=== PATIENT | male | born 1965 | race American Indian/Alaskan Native ===

== ENCOUNTER 2017-07-09 18:31 | Inpatient (IN) | payer SELFPAY ==
[2017-07-09] MEDS ORDERED: NITRO-BID 2% TP ONE (19:48)
[2017-07-09 20:09] LABS: Hematocrit 43.8 % (35.5-45.6); Hemoglobin 14.8 gm/dl (11.8-15.2); Mean Corpuscular HGB Conc 34 % (32-34); Mean Corpuscular Hemoglobin 31 pg (28-32); Mean Corpuscular Volume 91 fl (84-94); Platelet Count 250 K/mm3 (140-440); Red Blood Count 4.84 M/mm3 (3.65-5.03); Red Cell Distribution Width 14.3 % (13.2-15.2)
[2017-07-09 20:20] LABS: INR 0.85 (0.87-1.13); Partial Thromboplastin Time 29.2 Sec. (24.2-36.6)
[2017-07-09 20:55] LABS: Total Cells Counted 100
[2017-07-09 20:56] LABS: Large Platelets Few
[2017-07-09 21:03] LABS: Alanine Aminotransferase 122 units/L (7-56); Albumin 3.8 g/dL (3.9-5); BUN/Creatinine Ratio 10; Blood Urea Nitrogen 6 mg/dL (9-20); Calcium 8.7 mg/dL (8.4-10.2); Hemolysis Index 5
--- NOTE | 2017-07-09 21:26 | Emergency Department Report ---
ED Chest Pain HPI - General Chief Complaint: Chest Pain Stated Complaint: CHEST PAIN Time Seen by Provider: 07/09/17 19:37 Source: patient, EMS Mode of arrival: Stretcher Limitations: No Limitations - History of Present Illness Initial Comments: 52-year-old male the past medical history of hypertension and tobacco use presents to the hospital complaints of chest pain started last night and worsened prior to arrival. Chest pain described as a nail sticking him, positive associated shortness of breath and diaphoresis. No complaints of nausea, vomiting, cough, fever. Pain was rated 10/10 in intensity with an elevated blood pressure until he receives nitroglycerin and aspirin via EMS prior to arrival with improvement in pain. Pain is currently 0/10. Patient has a known history of hypertension but he is not taking any blood pressure medication because he cannot afford them. Patient angrily expresses that he goes back and forth to [facility] for treatment and they don't help him. He states he had a stress test several months ago that was "ok". No previous history of cardiac cath. Patient was referred to a primary care doctor through [facility] but patient did not have the money to be seen during that visit. Denies family previous history of CAD. Severity scale (0 -10): 0 - Related Data Home Medications Medication Instructions Recorded Confirmed Last Taken No Known Home Medications [No 02/28/16 02/28/16 Unknown Reported Home Medications] Allergies Allergy/AdvReac Type Severity Reaction Status Date / Time No Known Allergies Allergy Verified 07/09/17 22:12 Heart Score - HEART Score History: Slightly suspicious EKG: Non-specific Age: 45-65 Risk factors: 1-2 risk factors Troponin: < normal limit HEART Score: 3 ED Review of Systems ROS: Stated complaint: CHEST PAIN Other details as noted in HPI Comment: All other systems reviewed and negative ED Past Medical Hx - Past Medical History Previous Medical History?: Yes Hx Hypertension: Yes - Surgical History Past Surgical History?: No - Social History Smoking Status: Current Every Day Smoker Substance Use Type: Alcohol - Medications Home Medications: Home Medications Medication Instructions Recorded Confirmed Last Taken Type No Known Home Medications [No 02/28/16 02/28/16 Unknown History Reported Home Medications] ED Physical Exam - General Limitations: No Limitations - Other Other exam information: General: No limitations, patient is alert in no acute distress Head exam: Atraumatic, normocephalic Eyes exam: Normal appearance ENT: Moist mucous membrane, normal oropharynx Neck exam: Normal inspection, full range of motion, no meningismus nontender Respiratory exam: Clear to auscultation bilateral, no wheezes, rales, crackles Cardiovascular: Normal rate and rhythm, chest wall nontender Abdomen: Soft, nondistended, and nontender, with normal bowel sounds, no rebound, or guarding Extremity: Full range of motion normal inspection no deformity, tenderness or edema Back: Normal Inspection, full range of motion, no tenderness Neurologic: Alert, oriented x3, cranial nerves intact, no motor or sensory deficit Psychiatric: normal affect, normal mood Skin: Warm, dry, intact ED Course Vital Signs 07/09/17 07/09/17 07/09/17 19:48 20:58 22:05 Temperature 98.6 F Pulse Rate 88 82 87 Respiratory 20 20 Rate Blood Pressure 174/117 Blood Pressure 169/117 144/94 [Right] O2 Sat by Pulse 98 98 Oximetry - Reevaluation(s) Reevaluation #1: 07/09/17 NTG paste placed in ED DARION score - Darion Score Age > 65: (0) No Aspirin use within the Past 7 Days: (0) No 3 or more CAD Risk Factors: (0) No 2 or more Angina events in past 24 hrs: (1) Yes Known CAD with more than 50% Stenosis: (0) No Elevated Cardiac Markers: (0) No ST Deviation Greater than 0.5mm: (0) No DARION Score: 1 ED Medical Decision Making - Lab Data Result diagrams: 07/09/17 19:51 07/09/17 19:51 Lab Results 07/09/17 07/09/17 07/09/17 Range/Units 19:51 19:51 19:51 WBC 4.2 L (4.5-11.0) K/mm3 RBC 4.84 (3.65-5.03) M/mm3 Hgb 14.8 (11.8-15.2) gm/dl Hct 43.8 (35.5-45.6) % MCV 91 (84-94) fl MCH 31 (28-32) pg MCHC 34 (32-34) % RDW 14.3 (13.2-15.2) % Plt Count 250 (140-440) K/mm3 Sargent % (Auto) Distance Education Faculty Liaison Add Manual Diff Complete Total Counted 100 Seg Neuts % (Manual) 33.0 L (40.0-70.0) % Band Neutrophils % 0 % Lymphocytes % (Manual) 37.0 H (13.4-35.0) % Reactive Lymphs % (Man) 2.0 % Monocytes % (Manual) 19.0 H (0.0-7.3) % Eosinophils % (Manual) 4.0 (0.0-4.3) % Basophils % (Manual) 5.0 H (0.0-1.8) % Metamyelocytes % 0 % Myelocytes % 0 % Promyelocytes % 0 % Blast Cells % 0 % Nucleated RBC % Not Reportable Seg Neutrophils # Man 1.4 L (1.8-7.7) K/mm3 Band Neutrophils # 0.0 K/mm3 Lymphocytes # (Manual) 1.6 (1.2-5.4) K/mm3 Abs React Lymphs (Man) 0.1 K/mm3 Monocytes # (Manual) 0.8 (0.0-0.8) K/mm3 Eosinophils # (Manual) 0.2 (0.0-0.4) K/mm3 Basophils # (Manual) 0.2 H (0.0-0.1) K/mm3 Metamyelocytes # 0.0 K/mm3 Myelocytes # 0.0 K/mm3 Promyelocytes # 0.0 K/mm3 Blast Cells # 0.0 K/mm3 WBC Morphology Not Reportable Hypersegmented Neuts Not Reportable Hyposegmented Neuts Not Reportable Hypogranular Neuts Not Reportable Smudge Cells Not Reportable Toxic Granulation Not Reportable Toxic Vacuolation Not Reportable Dohle Bodies Not Reportable Pelger-Huet Anomaly Not Reportable Esther Rods Not Reportable Platelet Estimate Appears normal Clumped Platelets Not Reportable Plt Clumps, EDTA Not Reportable Large Platelets Few Giant Platelets Not Reportable Platelet Satelliting Not Reportable Plt Morphology Comment Not Reportable RBC Morphology Not Reportable Dimorphic RBCs Not Reportable Polychromasia Not Reportable Hypochromasia Not Reportable Poikilocytosis Not Reportable Anisocytosis Not Reportable Microcytosis Not Reportable Macrocytosis Not Reportable Spherocytes Not Reportable Pappenheimer Bodies Not Reportable Sickle Cells Not Reportable Target Cells Not Reportable Tear Drop Cells Not Reportable Ovalocytes Not Reportable Helmet Cells Not Reportable [place] Bodies Not Reportable [place] Rings Not Reportable [place] Cells Not Reportable Bite Cells Not Reportable Crenated Cell Not Reportable Elliptocytes Not Reportable Acanthocytes (Spur) Not Reportable Rouleaux Not Reportable Hemoglobin C Crystals Not Reportable Schistocytes Not Reportable Malaria parasites Not Reportable Bubba Bodies Not Reportable Hem Pathologist Commnt No PT 12.0 L (12.2-14.9) Sec. INR 0.85 L (0.87-1.13) APTT 29.2 (24.2-36.6) Sec. Sodium 137 (137-145) mmol/L Potassium 4.2 (3.6-5.0) mmol/L Chloride 98.2 (98-107) mmol/L Carbon Dioxide 22 (22-30) mmol/L Anion Gap 21 mmol/L BUN 6 L (9-20) mg/dL Creatinine 0.6 L (0.8-1.5) mg/dL Estimated GFR > 60 ml/min BUN/Creatinine Ratio 10 % Glucose 80 (75-100) mg/dL Calcium 8.7 (8.4-10.2) mg/dL Total Bilirubin 0.40 (0.1-1.2) mg/dL AST 167 H (5-40) units/L ALT 122 H (7-56) units/L Alkaline Phosphatase 78 (35-129) units/L Total Creatine Kinase 193 H (55-170) units/L CK-MB (CK-2) 3.0 (0.0-4.0) ng/mL CK-MB (CK-2) Rel Index (0-4) Troponin T < 0.010 (0.00-0.029) ng/mL Total Protein 7.4 (6.3-8.2) g/dL Albumin 3.8 L (3.9-5) g/dL Albumin/Globulin Ratio 1.1 % // Range/Units 22:17 WBC (4.5-11.0) K/mm3 RBC (3.65-5.03) M/mm3 Hgb (11.8-15.2) gm/dl Hct (35.5-45.6) % MCV (84-94) fl MCH (28-32) pg MCHC (32-34) % RDW (13.2-15.2) % Plt Count (140-440) K/mm3 Sargent % (Auto) Add Manual Diff Total Counted Seg Neuts % (Manual) (40.0-70.0) % Band Neutrophils % % Lymphocytes % (Manual) (13.4-35.0) % Reactive Lymphs % (Man) % Monocytes % (Manual) (0.0-7.3) % Eosinophils % (Manual) (0.0-4.3) % Basophils % (Manual) (0.0-1.8) % Metamyelocytes % % Myelocytes % % Promyelocytes % % Blast Cells % % Nucleated RBC % Seg Neutrophils # Man (1.8-7.7) K/mm3 Band Neutrophils # K/mm3 Lymphocytes # (Manual) (1.2-5.4) K/mm3 Abs React Lymphs (Man) K/mm3 Monocytes # (Manual) (0.0-0.8) K/mm3 Eosinophils # (Manual) (0.0-0.4) K/mm3 Basophils # (Manual) (0.0-0.1) K/mm3 Metamyelocytes # K/mm3 Myelocytes # K/mm3 Promyelocytes # K/mm3 Blast Cells # K/mm3 WBC Morphology Hypersegmented Neuts Hyposegmented Neuts Hypogranular Neuts Smudge Cells Toxic Granulation Toxic Vacuolation Dohle Bodies Pelger-Huet Anomaly Esther Rods Platelet Estimate Clumped Platelets Plt Clumps, EDTA Large Platelets Giant Platelets Platelet Satelliting Plt Morphology Comment RBC Morphology Dimorphic RBCs Polychromasia Hypochromasia Poikilocytosis Anisocytosis Microcytosis Macrocytosis Spherocytes Pappenheimer Bodies Sickle Cells Target Cells Tear Drop Cells Ovalocytes Helmet Cells [place] Bodies [place] Rings [place] Cells Bite Cells Crenated Cell Elliptocytes Acanthocytes (Spur) Rouleaux Hemoglobin C Crystals Schistocytes Malaria parasites Bubba Bodies Hem Pathologist Commnt PT (12.2-14.9) Sec. INR (0.87-1.13) APTT (24.2-36.6) Sec. Sodium (137-145) mmol/L Potassium (3.6-5.0) mmol/L Chloride (98-107) mmol/L Carbon Dioxide (22-30) mmol/L Anion Gap mmol/L BUN (9-20) mg/dL Creatinine (0.8-1.5) mg/dL Estimated GFR ml/min BUN/Creatinine Ratio % Glucose (75-100) mg/dL Calcium (8.4-10.2) mg/dL Total Bilirubin (0.1-1.2) mg/dL AST (5-40) units/L ALT (7-56) units/L Alkaline Phosphatase (35-129) units/L Total Creatine Kinase 183 H (55-170) units/L CK-MB (CK-2) 2.7 (0.0-4.0) ng/mL CK-MB (CK-2) Rel Index 1.4 (0-4) Troponin T < 0.010 (0.00-0.029) ng/mL Total Protein (6.3-8.2) g/dL Albumin (3.9-5) g/dL Albumin/Globulin Ratio % - EKG Data -: EKG Interpreted by Me (old anterior infarct) EKG shows normal: sinus rhythm, axis (qrs axis -55), QRS complexes (qrs d 112), ST-T waves (no stemi/t inv. LVH, LAFV) Rate: normal (80) - EKG Data When compared to previous EKG there are: previous EKG unavailable 07/09/17 23:20 repeat ed ekg done at 23:00 with no acute changes compared to previous - Radiology Data Radiology results: report reviewed read by radiologist cxr: naf - Medical Decision Making The patient's pain improved nitroglycerin prior to arrival. Patient has uncontrolled hypertension and is a smoker. Noncompliant with medications. Will be admitted for further treatment. Treated with Nitro paste in the ED. initial troponin negative and EKG without signs of ST elevation CO or acute changes. UDS pending - Differential Diagnosis unstable angina, CO, hypertensive emergency, atypical chest pain, PT Critical Care Time: No Critical care attestation.: If time is entered above; I have spent that time in minutes in the direct care of this critically ill patient, excluding procedure time. ED Disposition Clinical Impression: Chest pain, Uncontrolled hypertension, Noncompliance with medication regimen Disposition: OP ADMIT IP TO THIS HOSP Is pt being admited?: Yes Does the pt Need Aspirin: No (given prior to arrival) Condition: Stable Time of Disposition: 21:26 (Dr Bernardo/hosp)
[2017-07-09] MEDS ORDERED: TYLENOL PO PRN (22:05)
[2017-07-09] MEDS ORDERED: PERCOCET 5/325 PO PRN (22:05)
[2017-07-09] MEDS ORDERED: PROVENTIL IH PRN (22:05)
[2017-07-09] MEDS ORDERED: ZOFRAN IV PRN (22:05)
[2017-07-09] MEDS ORDERED: SODIUM CHLORIDE FLUSH SYRINGE 10 ML IV PRN (22:05)
--- NOTE | 2017-07-09 22:08 | History and Physical Report ---
History of Present Illness Date of examination: 07/09/17 History of present illness: 52-year-old man a history of hypertension, noncompliant with medication comes emergency room complaints of chest pain located in the epigastric area which he describes as a sticking pain, intermittent in nature, unable to say how long it lasts 4, intensity 5/10, no radiation. He stated that he started having palpitations initially followed by chest pain, also feeling lightheaded. Admits to nausea, no shortness of breath, diaphoresis Review Of Systems: Constitutional: no weight loss Ears, eyes, nose, mouth and throat: no nasal congestion, no nasal discharge, no sinus pressure, blurry vision, diplopia Neck: No neck pain or rigidity. Cardiovascular: no orthopnea Respiratory: No shortness of breath, cough Gastrointestinal: no abdominal pain, hematochezia Genitourinary : no hematuria Musculoskeletal: no muscle ache Integumentary: no rash, no pruritis Neurological: no parathesias, focal weakness Endocrine: no cold or heat intolerance, no polyuria or polydipsia Hematologic/Lymphatic: no easy bruising, no easy bleeding, no gland swelling Allergic/Immunologic: no urticaria, no angioedema. PAST MEDICAL HISTORY; hypertension PAST SURGICAL HISTORY:elbow SOCIAL HISTORY:smoke 1 pack/day, 2 beers /day, no drugs FAMILY HISTORY: hypertension Medications and Allergies Allergies Allergy/AdvReac Type Severity Reaction Status Date / Time No Known Allergies Allergy Verified 07/09/17 22:12 Home Medications Medication Instructions Recorded Confirmed Last Taken Type No Known Home Medications [No 02/28/16 07/10/17 Unknown History Reported Home Medications] Active Meds: Active Medications Acetaminophen (Tylenol) 650 mg PO Q4H PRN PRN Reason: Pain MILD(1-3)/Fever >100.5/LUCERO Albuterol (Proventil) 2.5 mg IH Q4HRT PRN PRN Reason: Shortness Of Breath Exam - Physical Exam Narrative exam: Gen. appearance: Patient lying in bed, no apparent distress HEENT: Normocephalic, atraumatic, pupils equally round and reactive to light, extraocular movement intact, and no sclericterus,. No JVD or thyromegaly or nodule,neck supple, no carotid bruit ,mucous membranes moist, no exudate or erythema Heart: S1, S2, regular rate and rhythm Lungs: clear , breathing comfortable Abdomen: Positive bowel sounds, nontender, nondistended, no organomegaly Extremity: No edema, cyanosis, clubbing Skin: No rash, nodules, warm, dry Neuro: Oriented 3, cranial nerves II-12 intact, speech is fluent, motor and sensory intact - Constitutional Vitals: Temp Pulse Resp BP Pulse Ox 98.6 F 82 20 174/117 98 07/09/17 19:48 07/09/17 20:58 07/09/17 19:48 07/09/17 20:58 07/09/17 19:48 Results - Labs CBC & Chem 7: 07/10/17 04:13 07/09/17 19:51 Labs: Abnormal lab results 07/09/17 07/09/17 07/09/17 Range/Units 19:51 19:51 19:51 WBC 4.2 L (4.5-11.0) K/mm3 Seg Neuts % (Manual) 33.0 L (40.0-70.0) % Lymphocytes % (Manual) 37.0 H (13.4-35.0) % Monocytes % (Manual) 19.0 H (0.0-7.3) % Basophils % (Manual) 5.0 H (0.0-1.8) % Seg Neutrophils # Man 1.4 L (1.8-7.7) K/mm3 Basophils # (Manual) 0.2 H (0.0-0.1) K/mm3 PT 12.0 L (12.2-14.9) Sec. INR 0.85 L (0.87-1.13) BUN 6 L (9-20) mg/dL Creatinine 0.6 L (0.8-1.5) mg/dL AST 167 H (5-40) units/L ALT 122 H (7-56) units/L Total Creatine Kinase 193 H (55-170) units/L Albumin 3.8 L (3.9-5) g/dL Assessment and Plan Assessment Hypertensive urgency Palpitation/ chest pain Alcohol abuse Plan Admit to medicine Start iv hydralazine, norvasc check cardiac enzymes, stress test CIWA protocol with iv ativan
--- NOTE | 2017-07-09 22:50 | XRay Report ---
FINAL REPORT PROCEDURE: Chest. TECHNIQUE: Portable AP view. HISTORY: Chest pain. COMPARISON: No prior studies are available for comparison. FINDINGS: The heart size is normal. There is moderate tortuosity of the thoracic aorta. The lungs are clear. There are no pleural effusions. The soft tissues and regional skeleton are unremarkable. IMPRESSION: No evidence of acute disease.
[2017-07-09 23:04] LABS: Creatine Kinase MB 2.7 ng/mL (0.0-4.0)
[2017-07-10] MEDS: APRESOLINE IV PRN ×2 (00:20→00:58)
[2017-07-10] MEDS: NORVASC PO SCH ×2 (00:58→10:57)
[2017-07-10 01:04] LABS: Amphetamine Screen,Urine PRESUMPTIVE NEGATIVE; Benzodiazepines Screen,Urine PRESUMPTIVE NEGATIVE; Cannabinoid Screen,Urine PRESUMPTIVE NEGATIVE; Cocaine Screen,Urine PRESUMPTIVE NEGATIVE; Methadone Screen,Urine PRESUMPTIVE NEGATIVE; Opiate Screen,Urine PRESUMPTIVE NEGATIVE
[2017-07-10] MEDS ORDERED: ATIVAN IV PRN ×2 (01:07)
[2017-07-10] MEDS ORDERED: NITRO-BID 2% TP ONE ×2 (01:43→01:48)
[2017-07-10] MEDS ORDERED: APRESOLINE IV ONE (01:43)
[2017-07-10] MEDS ORDERED: APRESOLINE ONE (01:47)
[2017-07-10 04:56] LABS: Hematocrit 44.6 % (35.5-45.6); Hemoglobin 15.5 gm/dl (11.8-15.2); Mean Corpuscular HGB Conc 35 % (32-34); Mean Corpuscular Hemoglobin 31 pg (28-32); Mean Corpuscular Volume 89 fl (84-94); Platelet Count 248 K/mm3 (140-440); Red Blood Count 4.99 M/mm3 (3.65-5.03); Red Cell Distribution Width 14.2 % (13.2-15.2)
[2017-07-10 05:05] LABS: Creatine Kinase MB 3.1 ng/mL (0.0-4.0)
[2017-07-10 05:16] LABS: BUN/Creatinine Ratio 10; Blood Urea Nitrogen 7 mg/dL (9-20)
[2017-07-10 05:19] LABS: Hemolysis Index 4
[2017-07-10 06:04] LABS: Basophils % (Manual) 0 % (0.0-1.8); Eosinophils % (Manual) 0 % (0.0-4.3); Total Cells Counted 100
[2017-07-10 06:05] LABS: Anisocytosis Few; Hypochromasia Few; Large Platelets Few
--- NOTE | 2017-07-10 08:24 | Progress Note ---
Assessment and Plan Hypertensive urgency Palpitation Chest pain Alcohol abuse Plan Abnormal Stress thallium Start iv hydralazine, norvasc check cardiac enzymes, stress test CIWA protocol with iv Ativan DVT PPx with Subjective Date of service: 07/10/17 Principal diagnosis: chest pain, Hypertensive emergency Interval history: No new complaint. chest pain improving. reviewed lab and radiological data Objective - Constitutional Vitals: Vital Signs - 12hr 07/09/17 07/09/17 07/09/17 20:58 22:05 23:28 Temperature Pulse Rate 82 87 88 Respiratory 20 20 Rate Blood Pressure 174/117 Blood Pressure 152/101 [Left] Blood Pressure 144/94 [Right] O2 Sat by Pulse 98 2 L Oximetry 07/10/17 07/10/17 07/10/17 00:17 00:20 00:58 Temperature Pulse Rate 82 82 83 Respiratory 20 Rate Blood Pressure 179/131 179/133 Blood Pressure 179/103 [Left] Blood Pressure [Right] O2 Sat by Pulse 98 Oximetry 07/10/17 07/10/17 07/10/17 01:22 01:31 01:58 Temperature Pulse Rate 84 84 84 Respiratory 20 18 Rate Blood Pressure 190/112 Blood Pressure 179/113 195/117 [Left] Blood Pressure [Right] O2 Sat by Pulse 98 98 Oximetry 07/10/17 07/10/17 07/10/17 01:59 02:10 03:50 Temperature 98.4 F Pulse Rate 84 98 H 108 H Respiratory 20 20 Rate Blood Pressure 190/112 Blood Pressure 171/101 168/104 [Left] Blood Pressure [Right] O2 Sat by Pulse 98 Oximetry General appearance: Present: no acute distress, well-nourished - EENT Eyes: PERRL, EOM intact - Neck Neck: supple, normal ROM - Respiratory Respiratory effort: normal Respiratory: bilateral: CTA - Cardiovascular Rhythm: regular Heart Sounds: Present: S1 & S2. Absent: gallop, rub Extremities: pulses intact, No edema, normal color, Full ROM - Gastrointestinal General gastrointestinal: Present: soft, non-tender, non-distended, normal bowel sounds - Integumentary Integumentary: clear, warm, dry - Musculoskeletal Musculoskeletal: 1, strength equal bilaterally - Neurologic Neurologic: moves all extremities - Psychiatric Psychiatric: memory intact, appropriate mood/affect, intact judgment & insight - Labs CBC & Chem 7: 07/10/17 04:13 07/10/17 04:13 Labs: Abnormal lab results 07/09/17 07/09/17 07/09/17 Range/Units 19:51 19:51 19:51 WBC 4.2 L (4.5-11.0) K/mm3 Hgb (11.8-15.2) gm/dl MCHC (32-34) % Seg Neuts % (Manual) 33.0 L (40.0-70.0) % Lymphocytes % (Manual) 37.0 H (13.4-35.0) % Monocytes % (Manual) 19.0 H (0.0-7.3) % Basophils % (Manual) 5.0 H (0.0-1.8) % Seg Neutrophils # Man 1.4 L (1.8-7.7) K/mm3 Lymphocytes # (Manual) (1.2-5.4) K/mm3 Monocytes # (Manual) (0.0-0.8) K/mm3 Basophils # (Manual) 0.2 H (0.0-0.1) K/mm3 PT 12.0 L (12.2-14.9) Sec. INR 0.85 L (0.87-1.13) Chloride (98-107) mmol/L Carbon Dioxide (22-30) mmol/L BUN 6 L (9-20) mg/dL Creatinine 0.6 L (0.8-1.5) mg/dL AST 167 H (5-40) units/L ALT 122 H (7-56) units/L Total Creatine Kinase 193 H (55-170) units/L Albumin 3.8 L (3.9-5) g/dL 07/09/17 07/10/17 07/10/17 Range/Units 22:17 04:13 04:13 WBC (4.5-11.0) K/mm3 Hgb 15.5 H (11.8-15.2) gm/dl MCHC 35 H (32-34) % Seg Neuts % (Manual) 71.0 H (40.0-70.0) % Lymphocytes % (Manual) 10.0 L (13.4-35.0) % Monocytes % (Manual) 19.0 H (0.0-7.3) % Basophils % (Manual) (0.0-1.8) % Seg Neutrophils # Man (1.8-7.7) K/mm3 Lymphocytes # (Manual) 0.6 L (1.2-5.4) K/mm3 Monocytes # (Manual) 1.1 H (0.0-0.8) K/mm3 Basophils # (Manual) (0.0-0.1) K/mm3 PT (12.2-14.9) Sec. INR (0.87-1.13) Chloride 96.8 L (98-107) mmol/L Carbon Dioxide 19 L (22-30) mmol/L BUN 7 L (9-20) mg/dL Creatinine 0.7 L (0.8-1.5) mg/dL AST (5-40) units/L ALT (7-56) units/L Total Creatine Kinase 183 H 196 H (55-170) units/L Albumin (3.9-5) g/dL
[2017-07-10] MEDS ORDERED: LEXISCAN IV ONE ×2 (08:25→08:28)
[2017-07-10] MEDS ORDERED: LOVENOX SUB-Q SCH (10:00)
[2017-07-10] MEDS: LOVENOX SUB-Q SCH (10:58)
[2017-07-10] MEDS: SODIUM CHLORIDE FLUSH SYRINGE 10 ML IV SCH ×2 (11:02→22:39)
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
[2017-07-10] MEDS: COREG PO SCH ×2 (13:12→22:38)
[2017-07-10] MEDS: ZESTRIL PO SCH ×2 (13:13→22:38)
--- NOTE | 2017-07-10 19:31 | Treadmill Report ---
Resting images revealed homogeneous radioisotope activity throughout the myocardium. On post-Lexiscan, images revealed a slightly diminished radioisotope uptake in the inferior wall region. There is no evidence of transient ischemic dilatation. On gated scan, ejection fraction was noted to be 58%. There is no segmental motion abnormality noted. IMPRESSION: 1. This test is positive for inferior wall ischemia of mild degree. 2. Left ventricular systolic function is normal with ejection fraction 58%. JOB# [id number] KEVAN/NTS
[2017-07-11 06:07] LABS: Hematocrit 45.3 % (35.5-45.6); Hemoglobin 15.4 gm/dl (11.8-15.2); Mean Corpuscular HGB Conc 34 % (32-34); Mean Corpuscular Hemoglobin 31 pg (28-32); Mean Corpuscular Volume 91 fl (84-94); Platelet Count 256 K/mm3 (140-440); Red Blood Count 5.01 M/mm3 (3.65-5.03); Red Cell Distribution Width 14.4 % (13.2-15.2)
[2017-07-11 06:36] LABS: Alanine Aminotransferase 97 units/L (7-56); Albumin 3.6 g/dL (3.9-5); BUN/Creatinine Ratio 19; Blood Urea Nitrogen 17 mg/dL (9-20); Calcium 9.4 mg/dL (8.4-10.2); Chol/HDL Ratio 1.91 %; HDL Cholesterol 94 mg/dL (40-59); Hemolysis Index 8; LDL Cholesterol,Direct 83 mg/dL (50-130)
[2017-07-11 07:29] LABS: Total Cells Counted 100
[2017-07-11 07:30] LABS: Anisocytosis Few; Basophils % (Manual) 0 % (0.0-1.8); Giant Platelets Rare; Large Platelets Few
[2017-07-11 07:31] LABS: Platelet Estimate Cons
--- NOTE | 2017-07-11 11:46 | Progress Note ---
Assessment and Plan Assessment: Chest pain, atypical - currently resolved; ECG with no acute ischemic changes; Sandra negative for AMI Uncontrolled HTN - improving Abnormal stress test - pt declines [facility] at this time and wishes to continue with medical management Elevated LFTs ETOH use / tobacco use - cessation encouraged H/o medication noncompliance - due to financial issues per pt report Plan: BPs improved today. Echo reviewed - EF 50-55%, impaired relaxation. Currently stable cardiac status. Pt may discharge home from cardiology standpoint. Recommend follow up in our office with Brianda Ochoa NP, within 1-2 weeks of hospital discharge ([phone]). The patient has been seen in conjunction with Dr. Jeter who agrees with the assessment and plan of care. Subjective Date of service: 07/11/17 Principal diagnosis: chest pain, Hypertensive emergency Interval history: pt resting in bed, no current cardiac complaints. BPs improved. Objective Last Vital Signs Temp 98.2 F 07/11/17 08:36 Pulse 64 07/11/17 08:36 Resp 20 07/11/17 08:36 BP 127/95 07/11/17 08:36 Pulse Ox 95 07/11/17 08:36 - Physical Examination HEENT: Positive: PERRL, Normocephaly, Mucus Membranes Moist Neck: Positive: neck supple, trachea midline Cardiac: Positive: Reg Rate and Rhythm, S1/S2 Lungs: Positive: clear to auscultation Neuro: Positive: Grossly Intact, Cranial Nerve 2-12 Intact Abdomen: Positive: Soft. Negative: Tender Skin: Positive: Clear. Negative: Rash, Wound Musculoskeletal: No Fluid Collection, No Pain, Normal Range of Motion Extremities: Absent: edema - Labs and Meds Cardiac Enzymes 07/11/17 Range/Units 04:56 AST 120 H (5-40) units/L Lipids 07/11/17 Range/Units 04:56 Triglycerides 101 (2-149) mg/dL Cholesterol 180 (50-199) mg/dL HDL Cholesterol 94 H (40-59) mg/dL Cholesterol/HDL Ratio 1.91 % CBC 07/11/17 Range/Units 04:56 WBC 5.2 (4.5-11.0) K/mm3 RBC 5.01 (3.65-5.03) M/mm3 Hgb 15.4 H (11.8-15.2) gm/dl Hct 45.3 (35.5-45.6) % Plt Count 256 (140-440) K/mm3 Comprehensive Metabolic Panel 07/11/17 Range/Units 04:56 Sodium 137 (137-145) mmol/L Potassium 4.1 (3.6-5.0) mmol/L Chloride 98.6 (98-107) mmol/L Carbon Dioxide 22 (22-30) mmol/L BUN 17 (9-20) mg/dL Creatinine 0.9 (0.8-1.5) mg/dL Glucose 105 H (75-100) mg/dL Calcium 9.4 (8.4-10.2) mg/dL AST 120 H (5-40) units/L ALT 97 H (7-56) units/L Alkaline Phosphatase 77 (35-129) units/L Total Protein 6.6 (6.3-8.2) g/dL Albumin 3.6 L (3.9-5) g/dL - Imaging and Cardiology EKG: report reviewed, image reviewed - EKG Sinus rhythms and dysrhythmias: sinus rhythm Chamber hypertrophy or enlargement: left ventricular hypertro
[2017-07-11] MEDS: ZESTRIL PO SCH ×2 (13:16→21:58)
[2017-07-11] MEDS: LOVENOX SUB-Q SCH (13:17)
[2017-07-11] MEDS: COREG PO SCH ×2 (13:17→21:58)
[2017-07-11] MEDS: SODIUM CHLORIDE FLUSH SYRINGE 10 ML IV SCH (21:57)
[2017-07-12 06:30] LABS: Hematocrit 44.5 % (35.5-45.6); Mean Corpuscular HGB Conc 34 % (32-34); Mean Corpuscular Hemoglobin 31 pg (28-32); Mean Corpuscular Volume 91 fl (84-94); Platelet Count 240 K/mm3 (140-440); Red Blood Count 4.89 M/mm3 (3.65-5.03); Red Cell Distribution Width 14.4 % (13.2-15.2)
[2017-07-12 06:50] LABS: Alanine Aminotransferase 97 units/L (7-56); Albumin 3.2 g/dL (3.9-5); BUN/Creatinine Ratio 21; Blood Urea Nitrogen 15 mg/dL (9-20); Hemolysis Index 4
[2017-07-12 07:28] LABS: Ovalocytes Few; Total Cells Counted 100
[2017-07-12 08:32] VITALS: BP 139/92
--- NOTE | 2017-07-12 09:29 | Progress Note ---
Assessment and Plan Hypertensive urgency Palpitation Chest pain Alcohol abuse Plan Abnormal Stress thallium Start iv hydralazine, norvasc. Pt declined [facility] check cardiac enzymes, stress test CIWA protocol with iv Ativan DVT PPx with Subjective Date of service: 07/11/17 Principal diagnosis: chest pain, Hypertensive emergency Interval history: feeling better Objective - Constitutional Vitals: Vital Signs - 12hr 07/11/17 07/11/17 07/11/17 22:00 23:49 23:57 Temperature Pulse Rate 58 L 98 H Respiratory Rate Blood Pressure 144/95 82/53 Blood Pressure [Left] O2 Sat by Pulse 98 97 100 Oximetry 07/12/17 07/12/17 07/12/17 00:31 04:17 05:03 Temperature 98.3 F 97.3 F L Pulse Rate 52 L 55 L 58 L Respiratory 20 20 Rate Blood Pressure 137/91 Blood Pressure 144/95 137/91 [Left] O2 Sat by Pulse 98 97 95 Oximetry 07/12/17 07:37 Temperature 97.3 F L Pulse Rate 58 L Respiratory 16 Rate Blood Pressure 139/92 Blood Pressure [Left] O2 Sat by Pulse 98 Oximetry General appearance: Present: no acute distress, well-nourished - EENT Eyes: PERRL, EOM intact - Neck Neck: supple, normal ROM - Respiratory Respiratory effort: normal Respiratory: bilateral: CTA - Breasts Breasts: normal - Cardiovascular Rhythm: regular Heart Sounds: Present: S1 & S2. Absent: gallop, rub Extremities: pulses intact, No edema, normal color, Full ROM - Gastrointestinal General gastrointestinal: Present: soft, non-tender, non-distended, normal bowel sounds - Integumentary Integumentary: clear, warm, dry - Musculoskeletal Musculoskeletal: 1, strength equal bilaterally - Neurologic Neurologic: moves all extremities - Psychiatric Psychiatric: memory intact, appropriate mood/affect, intact judgment & insight - Labs CBC & Chem 7: 07/12/17 04:04 07/12/17 04:04 Labs: Abnormal lab results 07/12/17 07/12/17 Range/Units 04:04 04:04 Monocytes % (Manual) 15.0 H (0.0-7.3) % Sodium 134 L (137-145) mmol/L Creatinine 0.7 L (0.8-1.5) mg/dL AST 121 H (5-40) units/L ALT 97 H (7-56) units/L Albumin 3.2 L (3.9-5) g/dL
[2017-07-12] MEDS: LOVENOX SUB-Q SCH (09:32)
[2017-07-12] MEDS: NORVASC PO SCH (09:32)
[2017-07-12] MEDS: ZESTRIL PO SCH (09:33)
--- NOTE | 2017-07-12 09:36 | Discharge Summary ---
Providers - Providers Date of Admission: 07/09/17 22:05 Date of discharge: 07/12/17 Attending physician: PONCE DILLON cardiology Primary care physician: ZACH CADENA Hospitalization Reason for admission: chest pain Condition: Stable Pertinent studies: CXR, ECHO with nl EF 50-55% and abnormal myocardial perfusion test. However, Pt decline cardiac cath Procedures: none Hospital course: The pt is a 52-year-old male with a past medical history significant for hypertension, noncompliant with medication, ETOH use, tobacco use. He is previously unknown to our practice. He presented with c/o chest pain and high BP for the past several months. He states that he was hospitalized at [place] 2 months ago with the same complaints and "no one did anything about it". He describes his chest pain as a nonexertional, nonradiating, intermittent left- sided chest pressure which is associated with SOB, palpitations and lightheadedness. The pain sometimes lasts for 1.5 days at a time. The pt reports that he is currently homeless - he lives in a friend's van - and could no longer afford his BP medications. He took his BP at [facility] yesterday and noted his SBP to be in 200s and thus decided to seek medical attention. Pt underwent lexiscan MPI stress test this 07/10/17 result was abnormal but pt decline cardiac cath. ECHO was 07/10/17 showd EF of 50-55% with diastolic dysfunction. Chest pain had resolve with asa NTG and morphin. He is therefore being discharged to f/u with [facility]p in 3-5 and cardiology in 7 days. Alcohl adn tobacco cessation counselling were done Disposition: - TO HOME OR SELFCARE Time spent for discharge: 33 mins Core Measure Documentation - Palliative Care Palliative Care/ Comfort Measures: Not Applicable - Core Measures Any of the following diagnoses?: none Exam - Constitutional Vitals: Temp Pulse Resp BP Pulse Ox 97.3 F L 58 L 16 139/92 98 07/12/17 07:37 07/12/17 07:37 07/12/17 07:37 07/12/17 07:37 07/12/17 07:37 General appearance: Present: no acute distress, well-nourished - EENT Eyes: Present: PERRL ENT: hearing intact, clear oral mucosa - Neck Neck: Present: supple, normal ROM - Respiratory Respiratory effort: normal Respiratory: bilateral: CTA - Cardiovascular Heart Sounds: Present: S1 & S2. Absent: rub, click - Extremities Extremities: pulses symmetrical, No edema Peripheral Pulses: within normal limits - Abdominal General gastrointestinal: Present: soft, non-tender, non-distended, normal bowel sounds Male genitourinary: Present: normal - Integumentary Integumentary: Present: clear, warm, dry - Musculoskeletal Musculoskeletal: gait normal, strength equal bilaterally - Psychiatric Psychiatric: appropriate mood/affect, intact judgment & insight - Neurologic Neurologic: CNII-XII intact, moves all extremities Plan Activity: advance as tolerated, fall precautions Weight Bearing Status: Weight Bear as Tolerated Special Instructions: smoking cessation Prescriptions: amLODIPine [Norvasc] 10 mg PO QDAY #30 tablet Aspirin [Aspirin BABY CHEW TAB] 81 mg PO QDAY #30 tab.chew Carvedilol [Coreg] 12.5 mg PO BID #60 tablet Lisinopril [Zestril TAB] 20 mg PO QDAY #30 tablet
[2017-07-12] MEDS ORDERED: BABY ASPIRIN PO SCH (10:00)
== END 2017-07-12 10:45 | disposition home or self-care (01) | DRG 313 ==
LOC: ED 18:31 → 4A 22:05
PROVIDERS: ADMIT Internal Medicine; ATTEND Family Medicine
DX: R07.9 Chest pain, unspecified (principal); I10 Essential (primary) hypertension; F17.200 Nicotine dependence, unspecified, uncomplicated; I16.0 Hypertensive urgency; F10.10 Alcohol abuse, uncomplicated; Z71.6 Tobacco abuse counseling; Z71.41 Alcohol abuse counseling and surveillance of alcoholic; Z91.14 Patient's other noncompliance with medication regimen; Z82.49 Family history of ischemic heart disease and other diseases of the circulatory system
CPT/HCPCS: 36415; 71045; 78452; 80048; 80053; 80061; 80307; 82550; 82553; 83735; 84484; 85007; 85025; 85610; 85730; 93005; 93010; 93017; 93306; 96374; 96376; A9502; J0360; J1650; J2785

== ENCOUNTER 2017-09-05 16:11 | Inpatient (IN) | payer SELFPAY ==
[2017-09-05] MEDS ORDERED: ASPIRIN PO ONE (16:18)
[2017-09-05 17:05] LABS: Hematocrit 44.5 % (35.5-45.6); Hemoglobin 15.2 gm/dl (11.8-15.2); Mean Corpuscular HGB Conc 34 % (32-34); Mean Corpuscular Hemoglobin 31 pg (28-32); Mean Corpuscular Volume 91 fl (84-94); Platelet Count 274 K/mm3 (140-440); Red Blood Count 4.92 M/mm3 (3.65-5.03); Red Cell Distribution Width 13.9 % (13.2-15.2)
[2017-09-05 17:23] LABS: BUN/Creatinine Ratio 10; Blood Urea Nitrogen 8 mg/dL (9-20); Calcium 8.7 mg/dL (8.4-10.2); Hemolysis Index 4
[2017-09-05 17:37] LABS: Total Cells Counted 100
[2017-09-05 17:38] LABS: Large Platelets 1+; Platelet Estimate Consistent w Auto; RBC Morphology Normal
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
[2017-09-05 21:27] LABS: INR 0.87 (0.87-1.13)
[2017-09-05 21:28] LABS: Partial Thromboplastin Time 28.8 Sec. (24.2-36.6)
[2017-09-05 21:35] LABS: Albumin 3.9 g/dL (3.9-5); Bilirubin,Direct 0.2 mg/dL (0-0.2)
[2017-09-06 01:08] LABS: Bilirubin,Urine NEG (Negative); Blood,Urine NEG (Negative); Color,Urine Yellow (Yellow); Mucus,Urine FEW /HPF; Protein,Urine <15 mg/dL mg/dL (Negative); WBC,Urine < 1.0 /HPF (0.0-6.0)
[2017-09-06 01:11] LABS: Amphetamine Screen,Urine PRESUMPTIVE NEGATIVE; Benzodiazepines Screen,Urine PRESUMPTIVE NEGATIVE; Cannabinoid Screen,Urine PRESUMPTIVE NEGATIVE; Cocaine Screen,Urine PRESUMPTIVE NEGATIVE; Methadone Screen,Urine PRESUMPTIVE NEGATIVE; Opiate Screen,Urine PRESUMPTIVE NEGATIVE
[2017-09-06] MEDS ORDERED: TYLENOL PO PRN (02:30)
[2017-09-06] MEDS ORDERED: MORPHINE IV PRN (02:30)
[2017-09-06] MEDS ORDERED: ZOFRAN IV PRN (02:30)
[2017-09-06] MEDS ORDERED: SODIUM CHLORIDE FLUSH SYRINGE 10 ML IV PRN (02:30)
--- NOTE | 2017-09-06 02:32 | History and Physical Report ---
History of Present Illness Date of examination: 09/06/17 History of present illness: 52-year-old man a history of hypertension, coronary artery disease comes emergency room complaints of chest pain located in the left substernal area which he describes as a knife like pain,constant, intensity 5/10, no radiation. Admits to nausea, no vomiting, shortness breath, diaphoresis or palpitation. The patient was admitted here a few weeks ago, stress test was abnormal, he refused cardiac cath Review Of Systems: Constitutional: no weight loss Ears, eyes, nose, mouth and throat: no nasal congestion, no nasal discharge, no sinus pressure, blurry vision, diplopia Neck: No neck pain or rigidity. Cardiovascular: no orthopnea Respiratory: No shortness of breath, cough Gastrointestinal: no abdominal pain, hematochezia Genitourinary : no hematuria Musculoskeletal: no muscle ache Integumentary: no rash, no pruritis Neurological: no parathesias, focal weakness Endocrine: no cold or heat intolerance, no polyuria or polydipsia Hematologic/Lymphatic: no easy bruising, no easy bleeding, no gland swelling Allergic/Immunologic: no urticaria, no angioedema. PAST MEDICAL HISTORY; hypertension PAST SURGICAL HISTORY:elbow SOCIAL HISTORY:smoke 4 cigars/day, 4 beers /day, no drugs FAMILY HISTORY: hypertension Medications and Allergies Allergies Allergy/AdvReac Type Severity Reaction Status Date / Time No Known Allergies Allergy Verified 07/09/17 22:12 Home Medications Medication Instructions Recorded Confirmed Last Taken Type ALBUTEROL NEB's [Proventil 0.083% 2.5 mg IH Q4HRT PRN nebu 07/12/17 09/07/17 Unknown Rx NEBS] Acetaminophen [Acetaminophen TAB] 650 mg PO Q4H PRN tablet 07/12/17 09/07/17 Unknown Rx Aspirin [Aspirin BABY CHEW TAB] 81 mg PO QDAY #30 tab.chew 09/07/17 Unknown Rx AtorvaSTATin [Lipitor] 40 mg PO QHS #30 tablet 09/07/17 Unknown Rx Carvedilol [Coreg] 12.5 mg PO BID #60 tablet 09/07/17 Unknown Rx ISOSORBIDE MONOnitrate [Imdur ER] 30 mg PO QDAY #30 tablet 09/07/17 Unknown Rx Lisinopril [Zestril TAB] 20 mg PO QDAY #30 tablet 09/07/17 Unknown Rx amLODIPine [Norvasc] 10 mg PO QDAY #30 tablet 09/07/17 Unknown Rx Exam - Physical Exam Narrative exam: Gen. appearance: Patient lying in bed, no apparent distress HEENT: Normocephalic, atraumatic, pupils equally round and reactive to light, extraocular movement intact, and no sclericterus,. No JVD or thyromegaly or nodule,neck supple, no carotid bruit ,mucous membranes moist, no exudate or erythema Heart: S1, S2, regular rate and rhythm Lungs: Clear to auscultation bilaterally, breathing comfortable Abdomen: Positive bowel sounds, nontender, nondistended, no organomegaly Extremity: No edema, cyanosis, clubbing Skin: No rash, nodules, warm, dry Neuro: Oriented 3, cranial nerves II-12 intact, speech is fluent, motor and sensory intact - Constitutional Vitals: Temp Pulse Resp BP Pulse Ox 98.4 F 90 18 143/94 96 09/05/17 20:26 09/06/17 01:00 09/06/17 01:00 09/06/17 00:55 09/06/17 01:00 Results - Labs CBC & Chem 7: 09/07/17 05:29 09/07/17 05:29 Labs: Abnormal lab results 09/05/17 09/05/17 09/05/17 Range/Units 16:24 16:24 20:55 Lymphocytes % (Manual) 38.0 H (13.4-35.0) % Monocytes % (Manual) 17.0 H (0.0-7.3) % Monocytes # (Manual) 1.0 H (0.0-0.8) K/mm3 D-Dimer 252.57 H (0-234) ng/mlDDU Sodium 134 L (137-145) mmol/L Chloride 95.1 L (98-107) mmol/L BUN 8 L (9-20) mg/dL AST (5-40) units/L ALT (7-56) units/L Plasma/Serum Alcohol (0-0.07) % 09/05/17 09/05/17 Range/Units 20:55 20:55 Lymphocytes % (Manual) (13.4-35.0) % Monocytes % (Manual) (0.0-7.3) % Monocytes # (Manual) (0.0-0.8) K/mm3 D-Dimer (0-234) ng/mlDDU Sodium (137-145) mmol/L Chloride (98-107) mmol/L BUN (9-20) mg/dL AST 143 H (5-40) units/L ALT 122 H (7-56) units/L Plasma/Serum Alcohol 0.12 H (0-0.07) % Assessment and Plan Assessment Unstable angina Coronary artery disease Hypertension Alcohol abuse Plan Admit to medicine check cardiac enzymes, consult cardiology Continue appropriate outpatient medications IV morphine, DVT prophylaxis
[2017-09-06] MEDS: COREG PO SCH ×2 (08:30→21:36)
[2017-09-06] MEDS: BABY ASPIRIN PO SCH (08:31)
[2017-09-06] MEDS: NORVASC PO SCH (08:31)
[2017-09-06] MEDS ORDERED: SODIUM CHLORIDE FLUSH SYRINGE 10 ML IV SCH (10:00)
[2017-09-06] MEDS ORDERED: ZESTRIL PO SCH (10:00)
[2017-09-06] MEDS ORDERED: LOVENOX SUB-Q SCH (10:00)
[2017-09-06] MEDS ORDERED: APRESOLINE IV PRN (10:08)
--- NOTE | 2017-09-06 10:29 | Event Note ---
Date: 09/06/17 Dr Nallely Jeter of [facility] performed a consultation and cardiac testing on this patient just last month 07/10/17. Please refer further cardiac management to his service. Thank you.
[2017-09-06] MEDS ORDERED: ATIVAN PO PRN (10:38)
[2017-09-06] MEDS ORDERED: ATIVAN IV PRN ×2 (10:38)
[2017-09-06] MEDS: LOVENOX SUB-Q SCH (11:04)
--- NOTE | 2017-09-06 13:55 | Consultation ---
History of Present Illness Consult date: 09/06/17 Requesting physician: BRIGITTE MARES Consult reason: chest pain History of present illness: The pt is a 52-year-old male with a past medical history significant for hypertension, noncompliant with medication, ETOH use, tobacco use. He has been seen by our practice on prior hospitalization but has been noncompliant with OP follow up. He presented with c/o chest pain and high BP for the past several days. He describes his chest pain as a nonexertional, nonradiating, intermittent left-sided chest pressure which is associated with SOB. The pt reports that he is currently homeless and could no longer afford his medications. Of note, pt underwent lexiscan MPI stress test in 07/2017 which showed small mild inferior reversible perfusion defect and coronary angiography was recommended at that time for definitive diagnosis. However, pt stated that if PCI were required, he did not believe that he would be able to afford DAPT and thus pt declined LHC at this time chose to proceed with medical management. On evaluation, pt reports that he still wishes to proceed with medical management only and declines LHC at this time. Echo done 07/2017 showed EF 50-55% , impaired relaxation. Past History Past Medical History: hyperlipidemia Social history: smoking, alcohol abuse Medications and Allergies Allergies Allergy/AdvReac Type Severity Reaction Status Date / Time No Known Allergies Allergy Verified 07/09/17 22:12 Home Medications Medication Instructions Recorded Confirmed Last Taken Type ALBUTEROL NEB's [Proventil 0.083% 2.5 mg IH Q4HRT PRN nebu 07/12/17 Unknown Rx NEBS] Acetaminophen [Acetaminophen TAB] 650 mg PO Q4H PRN tablet 07/12/17 Unknown Rx Aspirin [Aspirin BABY CHEW TAB] 81 mg PO QDAY #30 tab.chew 07/12/17 Unknown Rx Carvedilol [Coreg] 12.5 mg PO BID #60 tablet 07/12/17 Unknown Rx Lisinopril [Zestril TAB] 20 mg PO QDAY #30 tablet 07/12/17 Unknown Rx amLODIPine [Norvasc] 10 mg PO QDAY #30 tablet 07/12/17 Unknown Rx Active Meds: Active Medications Acetaminophen (Tylenol) 650 mg PO Q4H PRN PRN Reason: Pain MILD(1-3)/Fever >100.5/LUCERO Amlodipine Besylate (Norvasc) 10 mg PO QDAY [facility] Last Admin: 09/06/17 08:31 Dose: 10 mg Aspirin (Baby Aspirin) 81 mg PO QDAY [facility] Last Admin: 09/06/17 08:31 Dose: 81 mg Carvedilol (Coreg) 12.5 mg PO BID [facility] Last Admin: 09/06/17 08:30 Dose: 12.5 mg Enoxaparin Sodium (Lovenox) 40 mg SUB-Q QDAY@1000 [facility] Last Admin: 09/06/17 11:04 Dose: 40 mg Hydralazine HCl (Apresoline) 5 mg IV Q4HR PRN PRN Reason: Hypertension Lisinopril (Zestril) 20 mg PO QDAY [facility] Last Admin: 09/06/17 08:31 Dose: 20 mg Lorazepam (Ativan) 2 mg IV Q1H PRN PRN Reason: CIWA-Ar 8-15 Lorazepam (Ativan) 4 mg PO Q1H PRN PRN Reason: CIWA-Ar 16-25 Morphine Sulfate (Morphine) 2 mg IV Q4H PRN PRN Reason: Pain, Moderate (4-6) Ondansetron HCl (Zofran) 4 mg IV Q8H PRN PRN Reason: Nausea And Vomiting Sodium Chloride (Sodium Chloride Flush Syringe 10 Ml) 10 ml IV BID [facility] Sodium Chloride (Sodium Chloride Flush Syringe 10 Ml) 10 ml IV PRN PRN PRN Reason: LINE FLUSH Review of Systems Constitutional: no weight loss, no weight gain, no fever, no chills, no sweats Ears, nose, mouth and throat: no ear pain, no nose pain, no sinus pressure, no sinus pain Cardiovascular: chest pain, shortness of breath, high blood pressure, no orthopnea, no palpitations, no rapid/irregular heart beat, no edema, no syncope , no lightheadedness Respiratory: shortness of breath, no cough, no congestion, no wheezing, no pain on inspiration Gastrointestinal: no abdominal pain, no nausea, no vomiting, no diarrhea, no constipation, no change in bowel habits Genitourinary Male: no dysuria, no hematuria, no flank pain, no discharge, no urinary frequency, no urinary hesitancy Musculoskeletal: no neck stiffness, no neck pain Integumentary: no rash, no pruritis, no redness, no sores, no wounds Neurological: no head injury, no paralysis, no weakness, no parathesias, no numbness, no tingling, no seizures, no syncope Psychiatric: no anxiety Endocrine: no cold intolerance, no heat intolerance Hematologic/Lymphatic: no easy bruising, no easy bleeding, no lymphadenopathy Allergic/Immunologic: no urticaria, no wheezing, no persistent infections Physical Examination Vital Signs Temp Pulse Resp BP Pulse Ox 98.0 F 102 H 18 148/117 97 09/05/17 16:14 09/05/17 16:14 09/05/17 16:14 09/05/17 16:14 09/05/17 16:14 General appearance: no acute distress HEENT: Positive: PERRL, Normocephaly, Mucus Membranes Moist Neck: Positive: neck supple, trachea midline Cardiac: Positive: Reg Rate and Rhythm, S1/S2 Lungs: Positive: clear to auscultation Neuro: Positive: Grossly Intact, Cranial Nerve 2-12 Intact Abdomen: Positive: Soft. Negative: Tender Skin: Positive: Clear. Negative: Rash, Wound Musculoskeletal: No Pain Extremities: Absent: edema Results 09/05/17 16:24 09/05/17 16:24 Cardiac Enzymes 09/05/17 Range/Units 20:55 AST 143 H (5-40) units/L Coagulation 09/05/17 Range/Units 20:55 PT 12.2 (12.2-14.9) Sec. INR 0.87 (0.87-1.13) APTT 28.8 (24.2-36.6) Sec. CBC 09/05/17 Range/Units 16:24 WBC 6.1 (4.5-11.0) K/mm3 RBC 4.92 (3.65-5.03) M/mm3 Hgb 15.2 (11.8-15.2) gm/dl Hct 44.5 (35.5-45.6) % Plt Count 274 (140-440) K/mm3 Comprehensive Metabolic Panel 09/05/17 09/05/17 Range/Units 16:24 20:55 Sodium 134 L (137-145) mmol/L Potassium 3.7 (3.6-5.0) mmol/L Chloride 95.1 L (98-107) mmol/L Carbon Dioxide 25 (22-30) mmol/L BUN 8 L (9-20) mg/dL Creatinine 0.8 (0.8-1.5) mg/dL Glucose 84 (75-100) mg/dL Calcium 8.7 (8.4-10.2) mg/dL Direct Bilirubin 0.2 (0-0.2) mg/dL Indirect Bilirubin 0.5 mg/dL AST 143 H (5-40) units/L ALT 122 H (7-56) units/L Alkaline Phosphatase 59 (35-129) units/L Total Protein 6.8 (6.3-8.2) g/dL Albumin 3.9 (3.9-5) g/dL - Imaging and Cardiology Echo: report reviewed (07/2017 showed EF 50-55%, impaired relaxation. ) EKG: report reviewed, image reviewed EKG interpretations - Telemetry EKG Rhythm: Sinus Rhythm - EKG Sinus rhythms and dysrhythmias: sinus rhythm Chamber hypertrophy or enlargement: left ventricular hypertro Repolarization changes or abnormalities: repolarization abn secondary to ventricular hypertrophy Assessment and Plan Assessment: Chest pain, atypical - ECG with no acute ischemic changes; Sandra negative for AMI Uncontrolled HTN Abnormal stress test - pt declines LHC at this time and wishes to continue with medical management Elevated LFTs ETOH use / tobacco use - cessation encouraged H/o medication noncompliance - due to financial issues per pt report Elevated DDimer - await chest CTA Plan: Optimize anti-hypertensive and anti-ischemic regimen. No plans for repeat ischemic evaluation or echo at this time per pt's wishes. Assessment and plan reviewed with pt at bedside. The patient has been seen in conjunction with Dr. KEREN Mahajan who agrees with the assessment and plan of care.
--- NOTE | 2017-09-06 15:18 | Progress Note ---
Assessment and Plan Assessment and plan: 52-year-old -[place] male with past medical history significant for hypertension, positive stress test, tobacco dependence presented to the emergency department with complaints of chest pain. Cardiac enzymes are negative, ECG no acute ischemia. Patient said he is willing to do cardiac cath if needed. I saw cardiology note and they said he refused to have cardiac cath And patient preferred medical management and currently on it Active tobacco and alcohol abuse; patient was counselled about cessation of alcohol DVT prophylaxis - On lovenox. Disposition - Possible DC tomorrow. History Interval history: Patient was seen and evaluated this morning, patient is still complaining chest pain. Hospitalist Physical - Physical exam Narrative exam: Not in cardiopulmonary distress. The patient appeared well nourished and normally developed. Vital signs as documented. Head exam is unremarkable. No scleral icterus . Neck is without jugular venous distension, thyromegaly, or carotid bruits. Lungs are clear to auscultation. Cardiac exam reveals regular rate and Rhythm. Abdominal exam reveals normal bowel sounds, no masses, no organomegaly and no aortic enlargement. Extremities are nonedematous and both femoral and pedal pulses are normal. ELECTRONIC FUNDS TRANSFER COORDINATOR: Alert and oriented 3. No focal weakness. - Constitutional Vitals: Temp Pulse Resp BP Pulse Ox 98.8 F 84 18 152/104 99 09/06/17 04:27 09/06/17 08:30 09/06/17 04:34 09/06/17 08:31 09/06/17 04:27 General appearance: Present: no acute distress Results - Labs CBC & Chem 7: 09/05/17 16:24 09/05/17 16:24 Labs: Laboratory Last Values WBC 6.1 K/mm3 (4.5-11.0) 09/05/17 16:24 RBC 4.92 M/mm3 (3.65-5.03) 09/05/17 16:24 Hgb 15.2 gm/dl (11.8-15.2) 09/05/17 16:24 Hct 44.5 % (35.5-45.6) 09/05/17 16:24 MCV 91 fl (84-94) 09/05/17 16:24 MCH 31 pg (28-32) 09/05/17 16:24 MCHC 34 % (32-34) 09/05/17 16:24 RDW 13.9 % (13.2-15.2) 09/05/17 16:24 Plt Count 274 K/mm3 (140-440) 09/05/17 16:24 Johnson % (Auto) Sticker On 09/05/17 16:24 Add Manual Diff Complete 09/05/17 16:24 Total Counted 100 09/05/17 16:24 Seg Neuts % (Manual) 42.0 % (40.0-70.0) 09/05/17 16:24 Band Neutrophils % 0 % 09/05/17 16:24 Lymphocytes % (Manual) 38.0 % (13.4-35.0) H 09/05/17 16:24 Reactive Lymphs % (Man) 0 % 09/05/17 16:24 Monocytes % (Manual) 17.0 % (0.0-7.3) H 09/05/17 16:24 Eosinophils % (Manual) 2.0 % (0.0-4.3) 09/05/17 16:24 Basophils % (Manual) 1.0 % (0.0-1.8) 09/05/17 16:24 Metamyelocytes % 0 % 09/05/17 16:24 Myelocytes % 0 % 09/05/17 16:24 Promyelocytes % 0 % 09/05/17 16:24 Blast Cells % 0 % 09/05/17 16:24 Nucleated RBC % Not Reportable 09/05/17 16:24 Seg Neutrophils # Man 2.6 K/mm3 (1.8-7.7) 09/05/17 16:24 Band Neutrophils # 0.0 K/mm3 09/05/17 16:24 Lymphocytes # (Manual) 2.3 K/mm3 (1.2-5.4) 09/05/17 16:24 Abs React Lymphs (Man) 0.0 K/mm3 09/05/17 16:24 Monocytes # (Manual) 1.0 K/mm3 (0.0-0.8) H 09/05/17 16:24 Eosinophils # (Manual) 0.1 K/mm3 (0.0-0.4) 09/05/17 16:24 Basophils # (Manual) 0.1 K/mm3 (0.0-0.1) 09/05/17 16:24 Metamyelocytes # 0.0 K/mm3 09/05/17 16:24 Myelocytes # 0.0 K/mm3 09/05/17 16:24 Promyelocytes # 0.0 K/mm3 09/05/17 16:24 Blast Cells # 0.0 K/mm3 09/05/17 16:24 WBC Morphology Not Reportable 09/05/17 16:24 Hypersegmented Neuts Not Reportable 09/05/17 16:24 Hyposegmented Neuts Not Reportable 09/05/17 16:24 Hypogranular Neuts Not Reportable 09/05/17 16:24 Smudge Cells Not Reportable 09/05/17 16:24 Toxic Granulation Not Reportable 09/05/17 16:24 Toxic Vacuolation Not Reportable 09/05/17 16:24 Dohle Bodies Not Reportable 09/05/17 16:24 Pelger-Huet Anomaly Not Reportable 09/05/17 16:24 Esther Rods Not Reportable 09/05/17 16:24 Platelet Estimate Consistent w auto 09/05/17 16:24 Clumped Platelets Not Reportable 09/05/17 16:24 Plt Clumps, EDTA Not Reportable 09/05/17 16:24 Large Platelets 1+ 09/05/17 16:24 Giant Platelets Not Reportable 09/05/17 16:24 Platelet Satelliting Not Reportable 09/05/17 16:24 Plt Morphology Comment Not Reportable 09/05/17 16:24 RBC Morphology Normal 09/05/17 16:24 Dimorphic RBCs Not Reportable 09/05/17 16:24 Polychromasia Not Reportable 09/05/17 16:24 Hypochromasia Not Reportable 09/05/17 16:24 Poikilocytosis Not Reportable 09/05/17 16:24 Anisocytosis Not Reportable 09/05/17 16:24 Microcytosis Not Reportable 09/05/17 16:24 Macrocytosis Not Reportable 09/05/17 16:24 Spherocytes Not Reportable 09/05/17 16:24 Pappenheimer Bodies Not Reportable 09/05/17 16:24 Sickle Cells Not Reportable 09/05/17 16:24 Target Cells Not Reportable 09/05/17 16:24 Tear Drop Cells Not Reportable 09/05/17 16:24 Ovalocytes Not Reportable 09/05/17 16:24 Helmet Cells Not Reportable 09/05/17 16:24 Wilson-Marston Bodies Not Reportable 09/05/17 16:24 [place] Rings Not Reportable 09/05/17 16:24 Davon Cells Not Reportable 09/05/17 16:24 Bite Cells Not Reportable 09/05/17 16:24 Crenated Cell Not Reportable 09/05/17 16:24 Elliptocytes Not Reportable 09/05/17 16:24 Acanthocytes (Spur) Not Reportable 09/05/17 16:24 Rouleaux Not Reportable 09/05/17 16:24 Hemoglobin C Crystals Not Reportable 09/05/17 16:24 Schistocytes Not Reportable 09/05/17 16:24 Malaria parasites Not Reportable 09/05/17 16:24 Bubba Bodies Not Reportable 09/05/17 16:24 Hem Pathologist Commnt No 09/05/17 16:24 PT 12.2 Sec. (12.2-14.9) 09/05/17 20:55 INR 0.87 (0.87-1.13) 09/05/17 20:55 APTT 28.8 Sec. (24.2-36.6) 09/05/17 20:55 D-Dimer 252.57 ng/mlDDU (0-234) H 09/05/17 20:55 Sodium 134 mmol/L (137-145) L 09/05/17 16:24 Potassium 3.7 mmol/L (3.6-5.0) 09/05/17 16:24 Chloride 95.1 mmol/L (98-107) L 09/05/17 16:24 Carbon Dioxide 25 mmol/L (22-30) 09/05/17 16:24 Anion Gap 18 mmol/L 09/05/17 16:24 BUN 8 mg/dL (9-20) L 09/05/17 16:24 Creatinine 0.8 mg/dL (0.8-1.5) 09/05/17 16:24 Estimated GFR > 60 ml/min 09/05/17 16:24 BUN/Creatinine Ratio 10 % 09/05/17 16:24 Glucose 84 mg/dL (75-100) 09/05/17 16:24 Calcium 8.7 mg/dL (8.4-10.2) 09/05/17 16:24 Total Bilirubin 0.70 mg/dL (0.1-1.2) 09/05/17 20:55 Direct Bilirubin 0.2 mg/dL (0-0.2) 09/05/17 20:55 Indirect Bilirubin 0.5 mg/dL 09/05/17 20:55 AST 143 units/L (5-40) H 09/05/17 20:55 ALT 122 units/L (7-56) H 09/05/17 20:55 Alkaline Phosphatase 59 units/L (35-129) 09/05/17 20:55 Troponin T 0.013 ng/mL (0.00-0.029) 09/05/17 21:57 NT-Pro-B Natriuret Pep 288.1 pg/mL (0-900) 09/05/17 20:57 Total Protein 6.8 g/dL (6.3-8.2) 09/05/17 20:55 Albumin 3.9 g/dL (3.9-5) 09/05/17 20:55 Albumin/Globulin Ratio 1.3 % 09/05/17 20:55 Urine Color Yellow (Yellow) 09/06/17 00:12 Urine Turbidity Clear (Clear) 09/06/17 00:12 Urine pH 5.0 (5.0-7.0) 09/06/17 00:12 Ur Specific [place] 1.014 (1.003-1.030) 09/06/17 00:12 Urine Protein <15 mg/dl mg/dL (Negative) 09/06/17 00:12 Urine Glucose (UA) Neg mg/dL (Negative) 09/06/17 00:12 Urine Ketones Tr mg/dL (Negative) 09/06/17 00:12 Urine Blood Neg (Negative) 09/06/17 00:12 Urine Nitrite Neg (Negative) 09/06/17 00:12 Urine Bilirubin Neg (Negative) 09/06/17 00:12 Urine Urobilinogen 4.0 mg/dL (<2.0) 09/06/17 00:12 Ur Leukocyte Esterase Neg (Negative) 09/06/17 00:12 Urine WBC (Auto) < 1.0 /HPF (0.0-6.0) 09/06/17 00:12 Urine RBC (Auto) 2.0 /HPF (0.0-6.0) 09/06/17 00:12 U Epithel Cells (Auto) < 1.0 /HPF (0-13.0) 09/06/17 00:12 Urine Mucus Few /HPF 09/06/17 00:12 Urine Opiates Screen Presumptive negative 09/06/17 00:12 Urine Methadone Screen Presumptive negative 09/06/17 00:12 Ur Barbiturates Screen Presumptive negative 09/06/17 00:12 Ur Phencyclidine Scrn Presumptive negative 09/06/17 00:12 Ur Amphetamines Screen Presumptive negative 09/06/17 00:12 U Benzodiazepines Scrn Presumptive negative 09/06/17 00:12 Urine Cocaine Screen Presumptive negative 09/06/17 00:12 U Marijuana (THC) Screen Presumptive negative 09/06/17 00:12 Drugs of Abuse Note Disclamer 09/06/17 00:12 Plasma/Serum Alcohol 0.12 % (0-0.07) H 09/05/17 20:55
[2017-09-06] MEDS: ZESTRIL PO SCH (21:35)
[2017-09-07 05:27] VITALS: BP 120/90
[2017-09-07 06:29] LABS: Hematocrit 43.4 % (35.5-45.6); Hemoglobin 15.1 gm/dl (11.8-15.2); Mean Corpuscular HGB Conc 35 % (32-34); Mean Corpuscular Hemoglobin 32 pg (28-32); Mean Corpuscular Volume 91 fl (84-94); Platelet Count 238 K/mm3 (140-440); Red Blood Count 4.77 M/mm3 (3.65-5.03); Red Cell Distribution Width 14.1 % (13.2-15.2)
[2017-09-07 06:43] LABS: BUN/Creatinine Ratio 14; Blood Urea Nitrogen 11 mg/dL (9-20); Calcium 9.2 mg/dL (8.4-10.2); Hemolysis Index 4
[2017-09-07 07:49] LABS: Total Cells Counted 100
[2017-09-07 07:50] LABS: Basophils % (Manual) 0 % (0.0-1.8)
[2017-09-07 07:52] LABS: Large Platelets Few; Platelet Estimate Consistent w Auto
[2017-09-07] MEDS ORDERED: IMDUR PO SCH (10:00)
[2017-09-07] MEDS: NORVASC PO SCH (10:54)
[2017-09-07] MEDS: BABY ASPIRIN PO SCH (10:55)
[2017-09-07] MEDS: ZESTRIL PO SCH (10:55)
[2017-09-07] MEDS: COREG PO SCH (10:55)
[2017-09-07] MEDS: LOVENOX SUB-Q SCH (10:56)
--- NOTE | 2017-09-07 12:46 | Discharge Summary ---
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 Cardiac enzymes are negative, ECG no acute ischemia. Patient said he is willing to do cardiac cath if needed. cardiology was consulted and here is their recommendation: Assessment and Plan Assessment: Chest pain, atypical - currently resolved; ECG with no acute ischemic changes; Sandra negative for AMI Uncontrolled HTN - improved H/o abnormal stress test Elevated LFTs ETOH use / tobacco use - cessation encouraged H/o medication noncompliance - due to financial issues per pt report Elevated DDimer - await chest CTA Plan: Pt reiterates that if coronary angiography with PCI is required, he knows he will not be compliant with DAPT given financial issues. Thus, he wishes to forgo LHC at this time and try to be compliant with anti-ischemic and anti- hypertensive regimen. No plans for repeat ischemic evaluation or echo at this time per pt's wishes. Currently stable cardiac status. Pt may discharge home from cardiology standpoint. Recommend pt follow up in our office with Brianda Ochoa NP, within 2 weeks of hospital discharge ([phone]). Assessment and plan reviewed with pt at bedside. The patient has been seen in conjunction with Dr. KEREN Mahajan who agrees with the assessment and plan of care. Active tobacco and alcohol abuse; patient was counselled about cessation of alcohol. Chest pain subsided, patient is hemodynamically stable with a temperature discharge, appropriate medication scripts were given at the time of discharge. Disposition: TO HOME OR SELFCARE Time spent for discharge: 32 minutes - Discharge Diagnoses (1) Chest pain Status: Acute Qualifiers: Chest pain type: unspecified Qualified Code(s): R07.9 - Chest pain, unspecified (2) Noncompliance with medication regimen Status: Acute (3) Uncontrolled hypertension Status: Acute (4) Abnormal stress test Status: Acute Core Measure Documentation - Palliative Care Palliative Care/ Comfort Measures: Not Applicable - Core Measures Any of the following diagnoses?: none Exam - Physical Exam Narrative exam: Not in cardiopulmonary distress. The patient appeared well nourished and normally developed. Vital signs as documented. Head exam is unremarkable. No scleral icterus . Neck is without jugular venous distension, thyromegaly, or carotid bruits. Lungs are clear to auscultation. Cardiac exam reveals regular rate and Rhythm. Abdominal exam reveals normal bowel sounds, no masses, no organomegaly and no aortic enlargement. Extremities are nonedematous and both femoral and pedal pulses are normal. CORRECTIONAL CAPTAIN: Alert and oriented 3. No focal weakness. - Constitutional Vitals: Temp Pulse Resp BP Pulse Ox 98.4 F 65 18 120/90 98 09/07/17 03:50 09/07/17 06:42 09/07/17 03:50 09/07/17 03:50 09/07/17 03:50 Plan Activity: no restrictions Weight Bearing Status: Full Weight Bearing Diet: low cholesterol, low salt Additional Instructions: please follow up at [facility] in 1-2 weeks Follow up with: ZACH CADENA MD [Staff Physician] - 7 Days PRIMARY CARE, [Primary Care Provider] - 3-5 Days Prescriptions: AtorvaSTATin [Lipitor] 40 mg PO QHS #30 tablet amLODIPine [Norvasc] 10 mg PO QDAY #30 tablet Aspirin [Aspirin BABY CHEW TAB] 81 mg PO QDAY #30 tab.chew Carvedilol [Coreg] 12.5 mg PO BID #60 tablet ISOSORBIDE MONOnitrate [Imdur ER] 30 mg PO QDAY #30 tablet Lisinopril [Zestril TAB] 20 mg PO QDAY #30 tablet
--- NOTE | 2017-09-07 13:33 | Progress Note ---
Assessment and Plan Assessment: Chest pain, atypical - currently resolved; ECG with no acute ischemic changes; Sandra negative for AMI Uncontrolled HTN - improved H/o abnormal stress test Elevated LFTs ETOH use / tobacco use - cessation encouraged H/o medication noncompliance - due to financial issues per pt report Elevated DDimer - await chest CTA Plan: Pt reiterates that if coronary angiography with PCI is required, he knows he will not be compliant with DAPT given financial issues. Thus, he wishes to forgo LHC at this time and try to be compliant with anti-ischemic and anti- hypertensive regimen. No plans for repeat ischemic evaluation or echo at this time per pt's wishes. Currently stable cardiac status. Pt may discharge home from cardiology standpoint. Recommend pt follow up in our office with Brianda Ochoa NP, within 2 weeks of hospital discharge ([phone]). Assessment and plan reviewed with pt at bedside. The patient has been seen in conjunction with Dr. KEREN Mahajan who agrees with the assessment and plan of care. Subjective Date of service: 09/07/17 Principal diagnosis: chest pain Interval history: pt ambulating around room, fully dressed, states he was about to "walk out" because no one has been in to tell him anything today. no current cardiac complaints. Objective Last Vital Signs Temp 98.4 F 09/07/17 03:50 Pulse 65 09/07/17 06:42 Resp 18 09/07/17 03:50 BP 120/90 09/07/17 03:50 Pulse Ox 98 09/07/17 03:50 - Physical Examination General: No Apparent Distress HEENT: Positive: PERRL, Normocephaly, Mucus Membranes Moist Neck: Positive: neck supple, trachea midline Cardiac: Positive: Reg Rate and Rhythm, S1/S2 Lungs: Positive: clear to auscultation Neuro: Positive: Grossly Intact, Cranial Nerve 2-12 Intact Abdomen: Positive: Soft. Negative: Tender Skin: Positive: Clear. Negative: Rash, Wound Musculoskeletal: No Pain Extremities: Absent: edema - Labs and Meds CBC 09/07/17 Range/Units 05:29 WBC 5.2 (4.5-11.0) K/mm3 RBC 4.77 (3.65-5.03) M/mm3 Hgb 15.1 (11.8-15.2) gm/dl Hct 43.4 (35.5-45.6) % Plt Count 238 (140-440) K/mm3 Comprehensive Metabolic Panel 09/07/17 Range/Units 05:29 Sodium 135 L (137-145) mmol/L Potassium 4.2 (3.6-5.0) mmol/L Chloride 97.0 L (98-107) mmol/L Carbon Dioxide 27 (22-30) mmol/L BUN 11 (9-20) mg/dL Creatinine 0.8 (0.8-1.5) mg/dL Glucose 99 (75-100) mg/dL Calcium 9.2 (8.4-10.2) mg/dL - Imaging and Cardiology EKG: report reviewed, image reviewed Echo: report reviewed (07/2017 showed EF 50-55%, impaired relaxation. ) - EKG Sinus rhythms and dysrhythmias: sinus rhythm Chamber hypertrophy or enlargement: left ventricular hypertro Repolarization changes or abnormalities: repolarization abn secondary to ventricular hypertrophy
--- NOTE | 2017-09-10 14:14 | XRay Report ---
FINAL REPORT PROCEDURE: Chest. TECHNIQUE: Portable AP view. HISTORY: Chest pain. COMPARISON: Chest 07/09/2017. FINDINGS: The heart size is normal. There is mild tortuosity of the thoracic aorta. The lungs are clear and well expanded. There are no pleural effusions. The soft tissues and regional skeleton are unremarkable. IMPRESSION: No evidence of acute disease.
--- NOTE | 2017-09-10 14:16 | Cat Scan Report ---
FINAL REPORT PROCEDURE: CT ANGIO CHEST TECHNIQUE: Computerized tomographic angiography of the chest was performed during the IV injection of iodinated nonionic contrast including image processing. The image data was postprocessed using 2-dimensional multiplanar reformatted (MPR) and 3-dimensional (MIP and/or volume rendered) techniques. HISTORY: chest pain COMPARISON: No prior studies are available for comparison. FINDINGS: Pulmonary outflow tract, right and left main pulmonary arteries and their proximal branches: No filling defects are seen that would suggest pulmonary embolus. Pericardium: No evidence of pericardial effusion. Thoracic aorta: Atherosclerotic changes are visualized, no evidence of aneurysmal dilatation or dissection. Coronary arteries: Are unremarkable. Mediastinum and hilar regions: Nonspecific subcentimeter lymph nodes are visualized. No pathologically enlarged lymph nodes or masses are identified. Lung [place]: Small calcified granuloma seen in the right upper lobe anterior laterally measuring approximately 4 millimeters in size. There is minimal dependent atelectasis. Lungs otherwise are clear. Upper abdomen: Liver density is diffusely decreased consistent with fatty infiltration. No discrete liver lesions are identified. No acute abnormalities are identified. Other: No acute bony abnormalities are seen. IMPRESSION: No evidence of pulmonary embolus. Prior granulomatous disease. Fatty infiltration of the liver.
== END 2017-09-07 15:48 | disposition home or self-care (01) | DRG 313 ==
LOC: ED 16:11 → 4A 09-06 02:30
PROVIDERS: ADMIT Internal Medicine; ATTEND Internal Medicine
DX: R07.89 Other chest pain (principal); I25.10 Atherosclerotic heart disease of native coronary artery without angina pectoris; I10 Essential (primary) hypertension; Z79.82 Long term (current) use of aspirin; F17.200 Nicotine dependence, unspecified, uncomplicated; Z91.19 Patient's noncompliance with other medical treatment and regimen; Z82.49 Family history of ischemic heart disease and other diseases of the circulatory system; F10.10 Alcohol abuse, uncomplicated; Y90.9 Presence of alcohol in blood, level not specified
CPT/HCPCS: 36415; 71045; 71275; 80048; 80074; 80307; 80320; 81001; 83735; 83880; 84484; 85007; 85025; 85379; 85610; 85730; 93005; 93010; 99285; 99406; A9270-GY; G0480; J1650; Q9967

== ENCOUNTER 2017-10-09 13:44 | Inpatient (IN) | payer SELFPAY ==
[2017-10-09 14:25] LABS: Hematocrit 42.2 % (35.5-45.6); Hemoglobin 14.2 gm/dl (11.8-15.2); Mean Corpuscular HGB Conc 34 % (32-34); Mean Corpuscular Hemoglobin 31 pg (28-32); Mean Corpuscular Volume 92 fl (84-94); Platelet Count 239 K/mm3 (140-440); Red Blood Count 4.58 M/mm3 (3.65-5.03); Red Cell Distribution Width 15.2 % (13.2-15.2)
[2017-10-09 14:33] LABS: BUN/Creatinine Ratio 10; Blood Urea Nitrogen 7 mg/dL (9-20); Calcium 8.6 mg/dL (8.4-10.2); Hemolysis Index 9
[2017-10-09 14:51] LABS: Creatine Kinase MB 2.7 ng/mL (0.0-4.0)
[2017-10-09 15:00] LABS: INR 0.87 (0.87-1.13)
[2017-10-09 15:01] LABS: Partial Thromboplastin Time 26.9 Sec. (24.2-36.6)
--- NOTE | 2017-10-09 15:09 | Cat Scan Report ---
CT HEAD WITHOUT CONTRAST: HISTORY: Syncope. TECHNIQUE: Sequential CT images without contrast. FINDINGS: Images obtained show bilateral prominence of the sulci and ventricles. There are no abnormal intra- or extra-axial blood or fluid collections. There are no focal masses or evidence of mass effect. The ny white matter differentiation appears within normal limits. Regions of periventricular decreased attenuation are consistent with microangiopathic ischemic disease. Chronic millimetric lacunar infarcts are identified in the right thalamus and bilateral maya. The posterior fossa structures including the fourth ventricle, cerebellum, and brainstem appear normal. IMPRESSION: Evidence of atrophy and microangiopathic ischemic disease. Chronic focal infarcts in the right thalamus and maya. No acute intracranial process noted.
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
[2017-10-09 15:22] LABS: Eosinophils % (Manual) 0 % (0.0-4.3); Total Cells Counted 100
[2017-10-09 15:23] LABS: Platelet Estimate Consistent w Auto; RBC Morphology Normal
--- NOTE | 2017-10-09 15:36 | XRay Report ---
AP CHEST: HISTORY: chest pain AP view of the chest demonstrates a normal mediastinal and cardiac contour with clear lungs and normal bony and soft tissue structures. IMPRESSION: Unremarkable AP chest.
[2017-10-09] MEDS ORDERED: VITAMIN B-1 100 MG, FOLVITE 1 MG, INFUVITE 10 ML in NACL 0.9% 1000 ML 1,000 ML IV ONE (15:44)
--- NOTE | 2017-10-09 16:43 | Consultation ---
History of Present Illness Consult date: 10/09/17 Requesting physician: IWONA CAGE Consult reason: chest pain History of present illness: The pt is a 52-year-old male with a past medical history significant for hypertension, abnormal stress test, recurrent chest pain, noncompliant with medication, ETOH use, tobacco use. He has been seen by our practice on prior hospitalization but has been noncompliant with OP follow up. He presented with c /o syncope, palpitations and chest pain since earlier today. He states that he was sitting at a park on a bench in the shade earlier today when be suddenly became dizzy and "passed out". He fell backwards and then regained consciousness on the ground. When he regained consciousness, he noted palpitations and chest pain. He describes his chest pain as a nonexertional, nonradiating, intermittent left-sided chest pressure which is associated with SOB. The pt has a history of homelessness and is still homeless, however, he has been compliant with his medication regimen since discharge from [facility] on 2017. The pt does admit to drinking alcohol today. Of note, pt underwent lexiscan MPI stress test in 07/2017 which showed small mild inferior reversible perfusion defect and coronary angiography was recommended at that time for definitive diagnosis. However, pt stated that if PCI were required, he did not believe that he would be able to afford DAPT and thus pt declined [facility] at this time chose to proceed with medical management. Pt was evaluated for chest pain again at [facility] in 09/2017 and was offered coronary angiogram but also declined C at that time. Pt now states that he has been able to afford his medications recently due to financial help from his family and he would like to proceed with C now that he believes he can be compliant with DAPT. Echo done 07/2017 showed EF 50-55%, impaired relaxation. Past History Past Medical History: hypertension Social history: smoking, alcohol abuse. denies: prescription drug abuse Medications and Allergies Allergies Allergy/AdvReac Type Severity Reaction Status Date / Time No Known Allergies Allergy Verified 07/09/17 22:12 Home Medications Medication Instructions Recorded Confirmed Last Taken Type ALBUTEROL NEB's [Proventil 0.083% 2.5 mg IH Q4HRT PRN nebu 07/12/17 09/07/17 Unknown Rx NEBS] Acetaminophen [Acetaminophen TAB] 650 mg PO Q4H PRN tablet 07/12/17 09/07/17 Unknown Rx Aspirin [Aspirin BABY CHEW TAB] 81 mg PO QDAY #30 tab.chew 09/07/17 Unknown Rx AtorvaSTATin [Lipitor] 40 mg PO QHS #30 tablet 09/07/17 Unknown Rx Carvedilol [Coreg] 12.5 mg PO BID #60 tablet 09/07/17 Unknown Rx ISOSORBIDE MONOnitrate [Imdur ER] 30 mg PO QDAY #30 tablet 09/07/17 Unknown Rx Lisinopril [Zestril TAB] 20 mg PO QDAY #30 tablet 09/07/17 Unknown Rx amLODIPine [Norvasc] 10 mg PO QDAY #30 tablet 09/07/17 Unknown Rx Active Meds: Active Medications Thiamine HCl 100 mg/ Folic Acid 1 mg/ Multivitamins/Minerals 10 ml/ Sodium Chloride 1,011.2 mls @ 500 mls/hr IV ONCE ONE Stop: 10/09/17 17:45 Review of Systems Constitutional: no weight loss, no weight gain, no fever, no chills, no sweats Ears, nose, mouth and throat: no ear pain, no nose pain, no sinus pressure, no sinus pain Cardiovascular: chest pain, palpitations, syncope, lightheadedness, shortness of breath, high blood pressure, no orthopnea, no edema, no leg edema Respiratory: shortness of breath, no cough, no congestion, no wheezing, no pain on inspiration Gastrointestinal: no abdominal pain, no nausea, no vomiting, no diarrhea, no constipation, no change in bowel habits Genitourinary Male: no dysuria, no hematuria, no flank pain, no discharge, no urinary frequency, no urinary hesitancy Musculoskeletal: no neck stiffness, no neck pain Integumentary: no rash, no pruritis, no redness, no sores, no wounds Neurological: no head injury, no paralysis, no weakness, no parathesias, no numbness, no tingling, no seizures, no syncope Psychiatric: no anxiety Endocrine: no cold intolerance, no heat intolerance Hematologic/Lymphatic: no easy bruising, no easy bleeding, no lymphadenopathy Allergic/Immunologic: no urticaria, no wheezing, no persistent infections Physical Examination Vital Signs Temp Pulse Resp BP Pulse Ox 98.6 F 95 H 16 154/109 100 10/09/17 13:48 10/09/17 13:48 10/09/17 13:48 10/09/17 13:48 10/09/17 13:48 General appearance: no acute distress HEENT: Positive: PERRL, Normocephaly, Mucus Membranes Moist Neck: Positive: neck supple, trachea midline Cardiac: Positive: Reg Rate and Rhythm, S1/S2 Lungs: Positive: clear to auscultation Neuro: Positive: Grossly Intact, Cranial Nerve 2-12 Intact Abdomen: Positive: Soft. Negative: Tender Skin: Positive: Clear. Negative: Rash, Wound Musculoskeletal: No Fluid Collection, No Pain, Normal Range of Motion Extremities: Absent: edema Results 10/09/17 14:06 10/09/17 14:06 Cardiac Enzymes 10/09/17 Range/Units 14:36 CK-MB (CK-2) 2.7 (0.0-4.0) ng/mL Coagulation 10/09/17 Range/Units 14:40 PT 12.2 (12.2-14.9) Sec. INR 0.87 (0.87-1.13) APTT 26.9 (24.2-36.6) Sec. CBC 10/09/17 Range/Units 14:06 WBC 4.8 (4.5-11.0) K/mm3 RBC 4.58 (3.65-5.03) M/mm3 Hgb 14.2 (11.8-15.2) gm/dl Hct 42.2 (35.5-45.6) % Plt Count 239 (140-440) K/mm3 Comprehensive Metabolic Panel 10/09/17 Range/Units 14:06 Sodium 135 L (137-145) mmol/L Potassium 3.6 (3.6-5.0) mmol/L Chloride 98.1 (98-107) mmol/L Carbon Dioxide 21 L (22-30) mmol/L BUN 7 L (9-20) mg/dL Creatinine 0.7 L (0.8-1.5) mg/dL Glucose 108 H (75-100) mg/dL Calcium 8.6 (8.4-10.2) mg/dL - Imaging and Cardiology Echo: report reviewed (07/2017 showed EF 50-55%, impaired relaxation. ) EKG: report reviewed, image reviewed EKG interpretations - Telemetry EKG Rhythm: Sinus Rhythm - EKG Sinus rhythms and dysrhythmias: sinus rhythm Assessment and Plan Resume home cardiac regimen. Will plan for coronary angiography on , 10/11/2017. Indications, potential risks and benefits of LHC reviewed with pt and he is agreeable to proceed with LHC. He reports that he will be compliant with prescribed medications. The patient has been seen in conjunction with Dr. Chaparro who agrees with the assessment and plan of care. - Patient Problems (1) Recurrent chest pain Current Visit: Yes Status: Acute (2) Abnormal stress test Current Visit: Yes Status: Chronic (3) HTN (hypertension) Current Visit: Yes Status: Chronic (4) Syncope Current Visit: Yes Status: Acute (5) Alcohol abuse Current Visit: Yes Status: Chronic (6) Tobacco use Current Visit: Yes Status: Chronic
[2017-10-09] MEDS ORDERED: NACL 0.9% 500 ML 500 ML IV SCH (18:00)
[2017-10-09] MEDS ORDERED: MORPHINE IV PRN (20:35)
[2017-10-09] MEDS ORDERED: MORPHINE ONE (20:36)
[2017-10-09] MEDS: COREG PO SCH (22:34)
[2017-10-09 22:59] LABS: Amphetamine Screen,Urine PRESUMPTIVE NEGATIVE; Benzodiazepines Screen,Urine PRESUMPTIVE NEGATIVE; Cannabinoid Screen,Urine PRESUMPTIVE NEGATIVE; Cocaine Screen,Urine PRESUMPTIVE NEGATIVE; Methadone Screen,Urine PRESUMPTIVE NEGATIVE; Opiate Screen,Urine PRESUMPTIVE NEGATIVE
[2017-10-10] MEDS ORDERED: ATIVAN IV PRN ×2 (00:04)
[2017-10-10] MEDS: ATIVAN IV PRN ×2 (00:28→10:30)
[2017-10-10] MEDS: APRESOLINE IV PRN ×2 (00:29→08:26)
[2017-10-10] MEDS ORDERED: APRESOLINE IV ONE (06:08)
--- NOTE | 2017-10-10 07:19 | History and Physical Report ---
History of Present Illness Date of examination: 10/09/17 Date of admission: 10/09/17 17:12 Chief complaint: Chest pain for 1 week History of present illness: History of Present Illness 52-year-old male with a past medical history of alcohol abuse, hypertension, tobacco dependence, and abnormal stress test this hospital complaining of chest pain and syncope. Patient drink alcohol daily. S strength at 12 PM About 11a or 12p today patient stated he got very dizzy, felt his heart racing, and passed out. He woke up with mid sharp chest pain that is intermittent rate is 7 /10 intensity. No aggravating or alleviating factors reported and chest pain not worse with palpation or deep inspiration. He denies headache, calf tenderness, edema, or recent travel. Patient states he is compliant with all of his prescribed medication. Upon previous medical record review patient has been here in July and September for chest pain. He had an abnormal stress test in July and declined cardiac catheterization. He also declined cardiac catheterization during September admission and had a negative CT angiogram chest at this time. Plan was to manage medically and encourage patient to be compliant with his medications. Patient was evaluated by [facility] during admission. Although patient does drink alcohol daily he denies a history of known alcohol withdrawal tremors or seizures. Past Medical History Previous Medical History?: Yes Hx Hypertension: Yes Surgical History Past Surgical History?: Yes Additional Surgical History: Hx of [facility] 1985 Social History Smoking Status: Current Every Day Smoker Substance Use Type: Alcohol Family Hx Htn - Medications Home Medications: Home Medications Medication Instructions Recorded Confirmed Last Taken Type ALBUTEROL NEB's [Proventil 0.083% 2.5 mg IH Q4HRT PRN nebu 07/12/17 09/07/17 Unknown Rx NEBS] Acetaminophen [Acetaminophen TAB] 650 mg PO Q4H PRN tablet 07/12/17 09/07/17 Unknown Rx Aspirin [Aspirin BABY CHEW TAB] 81 mg PO QDAY #30 tab.chew 09/07/17 Unknown Rx AtorvaSTATin [Lipitor] 40 mg PO QHS #30 tablet 09/07/17 Unknown Rx Carvedilol [Coreg] 12.5 mg PO BID #60 tablet 09/07/17 Unknown Rx ISOSORBIDE MONOnitrate [Imdur ER] 30 mg PO QDAY #30 tablet 09/07/17 Unknown Rx Lisinopril [Zestril TAB] 20 mg PO QDAY #30 tablet 09/07/17 Unknown Rx amLODIPine [Norvasc] 10 mg PO QDAY #30 tablet 09/07/17 Unknown Rx Past History Past Medical History: hypertension Social history: smoking, alcohol abuse. denies: prescription drug abuse Medications and Allergies Allergies Allergy/AdvReac Type Severity Reaction Status Date / Time No Known Allergies Allergy Verified 07/09/17 22:12 Home Medications Medication Instructions Recorded Confirmed Last Taken Type ALBUTEROL NEB's [Proventil 0.083% 2.5 mg IH Q4HRT PRN nebu 07/12/17 09/07/17 Unknown Rx NEBS] Acetaminophen [Acetaminophen TAB] 650 mg PO Q4H PRN tablet 07/12/17 09/07/17 Unknown Rx Aspirin [Aspirin BABY CHEW TAB] 81 mg PO QDAY #30 tab.chew 09/07/17 Unknown Rx AtorvaSTATin [Lipitor] 40 mg PO QHS #30 tablet 09/07/17 Unknown Rx Carvedilol [Coreg] 12.5 mg PO BID #60 tablet 09/07/17 Unknown Rx ISOSORBIDE MONOnitrate [Imdur ER] 30 mg PO QDAY #30 tablet 09/07/17 Unknown Rx Lisinopril [Zestril TAB] 20 mg PO QDAY #30 tablet 09/07/17 Unknown Rx amLODIPine [Norvasc] 10 mg PO QDAY #30 tablet 09/07/17 Unknown Rx Active Meds: Active Medications Amlodipine Besylate (Norvasc) 10 mg PO QDAY [place] Aspirin (Baby Aspirin) 81 mg PO QDAY [place] Atorvastatin Calcium (Lipitor) 40 mg PO QHS [facility] Last Admin: 10/09/17 22:34 Dose: 40 mg Carvedilol (Coreg) 12.5 mg PO BID [facility] Last Admin: 10/09/17 22:34 Dose: 12.5 mg Hydralazine HCl (Apresoline) 5 mg IV Q6H PRN PRN Reason: Hypertension Last Admin: 10/10/17 00:29 Dose: 5 mg Isosorbide Mononitrate (Imdur) 30 mg PO QDAY [facility] Lisinopril (Zestril) 20 mg PO QDAY [facility] Lorazepam (Ativan) 4 mg IV Q1H PRN PRN Reason: CIWA-Ar 16-25 Lorazepam (Ativan) 4 mg IV Q15MIN PRN PRN Reason: CIWA-Ar >25 Lorazepam (Ativan) 2 mg IV Q1H PRN PRN Reason: CIWA-Ar 8-15 Last Admin: 10/10/17 00:28 Dose: 2 mg Morphine Sulfate (Morphine) 4 mg IV Q3H PRN PRN Reason: Pain, Chest/Cardiac Last Admin: 10/09/17 20:43 Dose: 4 mg Review of Systems All systems: negative Constitutional: no weight loss, no weight gain, no fever, no chills Ears, nose, mouth and throat: deferred Cardiovascular: chest pain, shortness of breath, dyspnea on exertion Respiratory: cough with sputum, congestion Gastrointestinal: no abdominal pain, no nausea, no vomiting, no diarrhea Genitourinary Male: no dysuria, no hematuria, no flank pain Rectal: no pain Musculoskeletal: no neck stiffness, no neck pain, no shooting arm pain Integumentary: no rash, no pruritis, no redness Neurological: no seizures, no syncope Psychiatric: no anxiety, no memory loss Endocrine: no cold intolerance, no heat intolerance, no polyphagia, no excessive thirst Hematologic/Lymphatic: no easy bruising Allergic/Immunologic: no urticaria, no allergic rhinitis, no wheezing Exam - Constitutional Vitals: Temp Pulse Resp BP Pulse Ox 98.2 F 83 18 183/141 95 10/10/17 05:54 10/10/17 05:54 10/10/17 05:54 10/10/17 05:54 10/10/17 05:54 General appearance: Present: no acute distress, well-nourished - EENT Eyes: Present: PERRL ENT: hearing intact, clear oral mucosa - Neck Neck: Present: supple, normal ROM - Respiratory Respiratory effort: normal Respiratory: bilateral: CTA - Cardiovascular Heart rate: 78 Rhythm: regular Heart Sounds: Present: S1 & S2. Absent: rub, click - Extremities Extremities: no ischemia, pulses symmetrical, No edema Peripheral Pulses: within normal limits - Abdominal General gastrointestinal: Present: soft, non-tender, non-distended, normal bowel sounds Male genitourinary: Present: normal - Rectal Rectal Exam: deferred - Integumentary Integumentary: Present: clear, warm, dry - Musculoskeletal Musculoskeletal: gait normal, strength equal bilaterally - Psychiatric Psychiatric: appropriate mood/affect, intact judgment & insight - Neurologic Neurologic: CNII-XII intact, moves all extremities - Allied Health Allied health notes reviewed: nursing, case management Results - Labs CBC & Chem 7: 10/09/17 14:06 10/09/17 14:06 Labs: Laboratory Last Values WBC 4.8 K/mm3 (4.5-11.0) 10/09/17 14:06 RBC 4.58 M/mm3 (3.65-5.03) 10/09/17 14:06 Hgb 14.2 gm/dl (11.8-15.2) 10/09/17 14:06 Hct 42.2 % (35.5-45.6) 10/09/17 14:06 MCV 92 fl (84-94) 10/09/17 14:06 MCH 31 pg (28-32) 10/09/17 14:06 MCHC 34 % (32-34) 10/09/17 14:06 RDW 15.2 % (13.2-15.2) 10/09/17 14:06 Plt Count 239 K/mm3 (140-440) 10/09/17 14:06 Bradley % (Auto) Training Professional 10/09/17 14:06 Add Manual Diff Complete 10/09/17 14:06 Total Counted 100 10/09/17 14:06 Seg Neuts % (Manual) 54.0 % (40.0-70.0) 10/09/17 14:06 Band Neutrophils % 0 % 10/09/17 14:06 Lymphocytes % (Manual) 34.0 % (13.4-35.0) 10/09/17 14:06 Reactive Lymphs % (Man) 0 % 10/09/17 14:06 Monocytes % (Manual) 11.0 % (0.0-7.3) H 10/09/17 14:06 Eosinophils % (Manual) 0 % (0.0-4.3) 10/09/17 14:06 Basophils % (Manual) 1.0 % (0.0-1.8) 10/09/17 14:06 Metamyelocytes % 0 % 10/09/17 14:06 Myelocytes % 0 % 10/09/17 14:06 Promyelocytes % 0 % 10/09/17 14:06 Blast Cells % 0 % 10/09/17 14:06 Nucleated RBC % Not Reportable 10/09/17 14:06 Seg Neutrophils # Man 2.6 K/mm3 (1.8-7.7) 10/09/17 14:06 Band Neutrophils # 0.0 K/mm3 10/09/17 14:06 Lymphocytes # (Manual) 1.6 K/mm3 (1.2-5.4) 10/09/17 14:06 Abs React Lymphs (Man) 0.0 K/mm3 10/09/17 14:06 Monocytes # (Manual) 0.5 K/mm3 (0.0-0.8) 10/09/17 14:06 Eosinophils # (Manual) 0.0 K/mm3 (0.0-0.4) 10/09/17 14:06 Basophils # (Manual) 0.0 K/mm3 (0.0-0.1) 10/09/17 14:06 Metamyelocytes # 0.0 K/mm3 10/09/17 14:06 Myelocytes # 0.0 K/mm3 10/09/17 14:06 Promyelocytes # 0.0 K/mm3 10/09/17 14:06 Blast Cells # 0.0 K/mm3 10/09/17 14:06 WBC Morphology Not Reportable 10/09/17 14:06 Hypersegmented Neuts Not Reportable 10/09/17 14:06 Hyposegmented Neuts Not Reportable 10/09/17 14:06 Hypogranular Neuts Not Reportable 10/09/17 14:06 Smudge Cells Not Reportable 10/09/17 14:06 Toxic Granulation Not Reportable 10/09/17 14:06 Toxic Vacuolation Not Reportable 10/09/17 14:06 Dohle Bodies Not Reportable 10/09/17 14:06 Pelger-Huet Anomaly Not Reportable 10/09/17 14:06 Esther Rods Not Reportable 10/09/17 14:06 Platelet Estimate Consistent w auto 10/09/17 14:06 Clumped Platelets Not Reportable 10/09/17 14:06 Plt Clumps, EDTA Not Reportable 10/09/17 14:06 Large Platelets Not Reportable 10/09/17 14:06 Giant Platelets Not Reportable 10/09/17 14:06 Platelet Satelliting Not Reportable 10/09/17 14:06 Plt Morphology Comment Not Reportable 10/09/17 14:06 RBC Morphology Normal 10/09/17 14:06 Dimorphic RBCs Not Reportable 10/09/17 14:06 Polychromasia Not Reportable 10/09/17 14:06 Hypochromasia Not Reportable 10/09/17 14:06 Poikilocytosis Not Reportable 10/09/17 14:06 Anisocytosis Not Reportable 10/09/17 14:06 Microcytosis Not Reportable 10/09/17 14:06 Macrocytosis Not Reportable 10/09/17 14:06 Spherocytes Not Reportable 10/09/17 14:06 Pappenheimer Bodies Not Reportable 10/09/17 14:06 Sickle Cells Not Reportable 10/09/17 14:06 Target Cells Not Reportable 10/09/17 14:06 Tear Drop Cells Not Reportable 10/09/17 14:06 Ovalocytes Not Reportable 10/09/17 14:06 Helmet Cells Not Reportable 10/09/17 14:06 [place] Bodies Not Reportable 10/09/17 14:06 Bandana Rings Not Reportable 10/09/17 14:06 [place] Cells Not Reportable 10/09/17 14:06 Bite Cells Not Reportable 10/09/17 14:06 Crenated Cell Not Reportable 10/09/17 14:06 Elliptocytes Not Reportable 10/09/17 14:06 Acanthocytes (Spur) Not Reportable 10/09/17 14:06 Rouleaux Not Reportable 10/09/17 14:06 Hemoglobin C Crystals Not Reportable 10/09/17 14:06 Schistocytes Not Reportable 10/09/17 14:06 Malaria parasites Not Reportable 10/09/17 14:06 Bubba Bodies Not Reportable 10/09/17 14:06 Hem Pathologist Commnt No 10/09/17 14:06 PT 12.2 Sec. (12.2-14.9) 10/09/17 14:40 INR 0.87 (0.87-1.13) 10/09/17 14:40 APTT 26.9 Sec. (24.2-36.6) 10/09/17 14:40 D-Dimer 400.21 ng/mlDDU (0-234) H 10/09/17 18:38 Sodium 135 mmol/L (137-145) L 10/09/17 14:06 Potassium 3.6 mmol/L (3.6-5.0) 10/09/17 14:06 Chloride 98.1 mmol/L (98-107) 10/09/17 14:06 Carbon Dioxide 21 mmol/L (22-30) L 10/09/17 14:06 Anion Gap 20 mmol/L 10/09/17 14:06 BUN 7 mg/dL (9-20) L 10/09/17 14:06 Creatinine 0.7 mg/dL (0.8-1.5) L 10/09/17 14:06 Estimated GFR > 60 ml/min 10/09/17 14:06 BUN/Creatinine Ratio 10 % 10/09/17 14:06 Glucose 108 mg/dL (75-100) H 10/09/17 14:06 Calcium 8.6 mg/dL (8.4-10.2) 10/09/17 14:06 Magnesium 1.90 mg/dL (1.7-2.3) 10/09/17 14:36 Total Creatine Kinase 167 units/L (55-170) 10/09/17 14:36 CK-MB (CK-2) 2.7 ng/mL (0.0-4.0) 10/09/17 14:36 CK-MB (CK-2) Rel Index 1.6 (0-4) 10/09/17 14:36 Troponin T < 0.010 ng/mL (0.00-0.029) 10/09/17 21:16 Urine Opiates Screen Presumptive negative 10/09/17 21:59 Urine Methadone Screen Presumptive negative 10/09/17 21:59 Ur Barbiturates Screen Presumptive negative 10/09/17 21:59 Ur Phencyclidine Scrn Presumptive negative 10/09/17 21:59 Ur Amphetamines Screen Presumptive negative 10/09/17 21:59 U Benzodiazepines Scrn Presumptive negative 10/09/17 21:59 Urine Cocaine Screen Presumptive negative 10/09/17 21:59 U Marijuana (THC) Screen Presumptive negative 10/09/17 21:59 Drugs of Abuse Note Disclamer 10/09/17 21:59 Plasma/Serum Alcohol 0.28 % (0-0.07) H 10/09/17 14:40 Short CBC 10/09/17 Range/Units 14:06 WBC 4.8 (4.5-11.0) K/mm3 Hgb 14.2 (11.8-15.2) gm/dl Hct 42.2 (35.5-45.6) % Plt Count 239 (140-440) K/mm3 BMP 10/09/17 14:06 Sodium 135 L Potassium 3.6 Chloride 98.1 Carbon Dioxide 21 L BUN 7 L Creatinine 0.7 L Glucose 108 H Calcium 8.6 Cardiac Enzymes 10/09/17 10/09/17 10/09/17 Range/Units 14:06 14:36 18:13 Total Creatine Kinase 167 (55-170) units/L CK-MB (CK-2) 2.7 (0.0-4.0) ng/mL Troponin T < 0.010 0.014 (0.00-0.029) ng/mL 10/09/17 Range/Units 21:16 Total Creatine Kinase (55-170) units/L CK-MB (CK-2) (0.0-4.0) ng/mL Troponin T < 0.010 (0.00-0.029) ng/mL - Imaging and Cardiology EKG: report reviewed Imaging and Cardiology: CXR IMPRESSION: Unremarkable AP chest. Assessment and Plan Advance Directives: Yes (Full code) VTE prophylaxis?: Chemical Plan of care discussed with patient/family: Yes - Patient Problems (1) ACS (acute coronary syndrome) Current Visit: Yes Status: Acute Plan to address problem: For Cath in Seen by [facility] (2) Abnormal stress test Current Visit: Yes Status: Chronic (3) Alcohol abuse Current Visit: Yes Status: Chronic Plan to address problem: [place] protocol (4) HTN (hypertension) Current Visit: Yes Status: Chronic Qualifiers: Hypertension type: essential hypertension Qualified Code(s): I10 - Essential (primary) hypertension Plan to address problem: Cont AntiHypertensives (5) Tobacco use Current Visit: Yes Status: Chronic Plan to address problem: Counselled Nicotine patch (6) COPD (chronic obstructive pulmonary disease) Current Visit: Yes Status: Chronic Qualifiers: COPD type: unspecified COPD Qualified Code(s): J44.9 - Chronic obstructive pulmonary disease, unspecified Plan to address problem: Duonebs prn (7) HLD (hyperlipidemia) Current Visit: Yes Status: Chronic Qualifiers: Hyperlipidemia type: mixed hyperlipidemia Qualified Code(s): E78.2 - Mixed hyperlipidemia Plan to address problem: Cont statins (8) CAD (coronary artery disease) Current Visit: Yes Status: Chronic Qualifiers: Coronary Disease-Associated Artery/Lesion type: [place] artery [place] vs. transplanted heart: [place] heart Plan to address problem: On ASA and Ismo (9) DVT prophylaxis Current Visit: Yes Status: Acute Plan to address problem: On Lovenox
[2017-10-10] MEDS ORDERED: DUONEB *Not for PRN Use IH (07:24)
[2017-10-10] MEDS ORDERED: PERCOCET 5/325 PO PRN (07:25)
[2017-10-10] MEDS ORDERED: TYLENOL PO PRN (07:25)
[2017-10-10] MEDS ORDERED: MORPHINE IV PRN (07:25)
[2017-10-10] MEDS ORDERED: ZOFRAN IV PRN (07:25)
[2017-10-10] MEDS ORDERED: SODIUM CHLORIDE FLUSH SYRINGE 10 ML IV PRN (07:25)
--- NOTE | 2017-10-10 09:29 | Event Note ---
Date: 10/10/17 pt denies cp or sob bp elevated tele: sinus rhythm with occ 3 beat non sustained vt General appearance: no acute distress HEENT: Positive: PERRL, Normocephaly, Mucus Membranes Moist Neck: Positive: neck supple, trachea midline Cardiac: Positive: Reg Rate and Rhythm, S1/S2 Lungs: Positive: clear to auscultation Neuro: Positive: Grossly Intact, Cranial Nerve 2-12 Intact Abdomen: Positive: Soft. Negative: Tender Skin: Positive: Clear. Negative: Rash, Wound Musculoskeletal: No Fluid Collection, No Pain, Normal Range of Motion Extremities: Absent: edema Plan: lhc/cor angio sched for 10/11/2017 consider increasing coreg to 25mg po bid or lisinopril to 40mg po qd for elevated bp
--- NOTE | 2017-10-10 09:36 | Progress Note ---
Assessment and Plan Assessment and plan: Chest pain. For cardiac cath tomorrow. On Aspirin, Coreg, Imdur cardiology following Hypertensive urgency. Continue Imdur, Lisinopril, Coreg, Norvasc Alcohol abuse. i counseled him on quitting DVT prophylaxis with Lovenox Full code status History Interval history: Chest pain Passed out Dizziness Hospitalist Physical - Physical exam Narrative exam: Gen : Not in acute distress, HEENT:Normocephalic, atraumatic Neck: supple, No JVD Lungs: Clear to auscultation, bilaterally, no rhonchi Heart :S1 and S2 reg, no murmurs, rubs or gallop Abd:soft, non tender, non distended, normal bowel sounds Ext: No edema, no clubbing, no cyanosis, Neuro: Awake,alert,oriented x 3, no focal signs - Constitutional Vitals: Temp Pulse Resp BP Pulse Ox 97.8 F 88 20 193/136 98 10/10/17 08:14 10/10/17 08:14 10/10/17 08:14 10/10/17 08:26 10/10/17 08:14 General appearance: Present: no acute distress, well-nourished Results - Labs CBC & Chem 7: 10/09/17 14:06 10/09/17 14:06 Labs: Laboratory Last Values WBC 4.8 K/mm3 (4.5-11.0) 10/09/17 14:06 RBC 4.58 M/mm3 (3.65-5.03) 10/09/17 14:06 Hgb 14.2 gm/dl (11.8-15.2) 10/09/17 14:06 Hct 42.2 % (35.5-45.6) 10/09/17 14:06 MCV 92 fl (84-94) 10/09/17 14:06 MCH 31 pg (28-32) 10/09/17 14:06 MCHC 34 % (32-34) 10/09/17 14:06 RDW 15.2 % (13.2-15.2) 10/09/17 14:06 Plt Count 239 K/mm3 (140-440) 10/09/17 14:06 [place] % (Auto) Electrical Supervisor 10/09/17 14:06 Add Manual Diff Complete 10/09/17 14:06 Total Counted 100 10/09/17 14:06 Seg Neuts % (Manual) 54.0 % (40.0-70.0) 10/09/17 14:06 Band Neutrophils % 0 % 10/09/17 14:06 Lymphocytes % (Manual) 34.0 % (13.4-35.0) 10/09/17 14:06 Reactive Lymphs % (Man) 0 % 10/09/17 14:06 Monocytes % (Manual) 11.0 % (0.0-7.3) H 10/09/17 14:06 Eosinophils % (Manual) 0 % (0.0-4.3) 10/09/17 14:06 Basophils % (Manual) 1.0 % (0.0-1.8) 10/09/17 14:06 Metamyelocytes % 0 % 10/09/17 14:06 Myelocytes % 0 % 10/09/17 14:06 Promyelocytes % 0 % 10/09/17 14:06 Blast Cells % 0 % 10/09/17 14:06 Nucleated RBC % Not Reportable 10/09/17 14:06 Seg Neutrophils # Man 2.6 K/mm3 (1.8-7.7) 10/09/17 14:06 Band Neutrophils # 0.0 K/mm3 10/09/17 14:06 Lymphocytes # (Manual) 1.6 K/mm3 (1.2-5.4) 10/09/17 14:06 Abs React Lymphs (Man) 0.0 K/mm3 10/09/17 14:06 Monocytes # (Manual) 0.5 K/mm3 (0.0-0.8) 10/09/17 14:06 Eosinophils # (Manual) 0.0 K/mm3 (0.0-0.4) 10/09/17 14:06 Basophils # (Manual) 0.0 K/mm3 (0.0-0.1) 10/09/17 14:06 Metamyelocytes # 0.0 K/mm3 10/09/17 14:06 Myelocytes # 0.0 K/mm3 10/09/17 14:06 Promyelocytes # 0.0 K/mm3 10/09/17 14:06 Blast Cells # 0.0 K/mm3 10/09/17 14:06 WBC Morphology Not Reportable 10/09/17 14:06 Hypersegmented Neuts Not Reportable 10/09/17 14:06 Hyposegmented Neuts Not Reportable 10/09/17 14:06 Hypogranular Neuts Not Reportable 10/09/17 14:06 Smudge Cells Not Reportable 10/09/17 14:06 Toxic Granulation Not Reportable 10/09/17 14:06 Toxic Vacuolation Not Reportable 10/09/17 14:06 Dohle Bodies Not Reportable 10/09/17 14:06 Pelger-Huet Anomaly Not Reportable 10/09/17 14:06 Esther Rods Not Reportable 10/09/17 14:06 Platelet Estimate Consistent w auto 10/09/17 14:06 Clumped Platelets Not Reportable 10/09/17 14:06 Plt Clumps, EDTA Not Reportable 10/09/17 14:06 Large Platelets Not Reportable 10/09/17 14:06 Giant Platelets Not Reportable 10/09/17 14:06 Platelet Satelliting Not Reportable 10/09/17 14:06 Plt Morphology Comment Not Reportable 10/09/17 14:06 RBC Morphology Normal 10/09/17 14:06 Dimorphic RBCs Not Reportable 10/09/17 14:06 Polychromasia Not Reportable 10/09/17 14:06 Hypochromasia Not Reportable 10/09/17 14:06 Poikilocytosis Not Reportable 10/09/17 14:06 Anisocytosis Not Reportable 10/09/17 14:06 Microcytosis Not Reportable 10/09/17 14:06 Macrocytosis Not Reportable 10/09/17 14:06 Spherocytes Not Reportable 10/09/17 14:06 Pappenheimer Bodies Not Reportable 10/09/17 14:06 Sickle Cells Not Reportable 10/09/17 14:06 Target Cells Not Reportable 10/09/17 14:06 Tear Drop Cells Not Reportable 10/09/17 14:06 Ovalocytes Not Reportable 10/09/17 14:06 Helmet Cells Not Reportable 10/09/17 14:06 Wilson-[place] Bodies Not Reportable 10/09/17 14:06 Romance Rings Not Reportable 10/09/17 14:06 Davon Cells Not Reportable 10/09/17 14:06 Bite Cells Not Reportable 10/09/17 14:06 Crenated Cell Not Reportable 10/09/17 14:06 Elliptocytes Not Reportable 10/09/17 14:06 Acanthocytes (Spur) Not Reportable 10/09/17 14:06 Rouleaux Not Reportable 10/09/17 14:06 Hemoglobin C Crystals Not Reportable 10/09/17 14:06 Schistocytes Not Reportable 10/09/17 14:06 Malaria parasites Not Reportable 10/09/17 14:06 Bubba Bodies Not Reportable 10/09/17 14:06 Hem Pathologist Commnt No 10/09/17 14:06 PT 12.2 Sec. (12.2-14.9) 10/09/17 14:40 INR 0.87 (0.87-1.13) 10/09/17 14:40 APTT 26.9 Sec. (24.2-36.6) 10/09/17 14:40 D-Dimer 400.21 ng/mlDDU (0-234) H 10/09/17 18:38 Sodium 135 mmol/L (137-145) L 10/09/17 14:06 Potassium 3.6 mmol/L (3.6-5.0) 10/09/17 14:06 Chloride 98.1 mmol/L (98-107) 10/09/17 14:06 Carbon Dioxide 21 mmol/L (22-30) L 10/09/17 14:06 Anion Gap 20 mmol/L 10/09/17 14:06 BUN 7 mg/dL (9-20) L 10/09/17 14:06 Creatinine 0.7 mg/dL (0.8-1.5) L 10/09/17 14:06 Estimated GFR > 60 ml/min 10/09/17 14:06 BUN/Creatinine Ratio 10 % 10/09/17 14:06 Glucose 108 mg/dL (75-100) H 10/09/17 14:06 Calcium 8.6 mg/dL (8.4-10.2) 10/09/17 14:06 Magnesium 1.90 mg/dL (1.7-2.3) 10/09/17 14:36 Total Creatine Kinase 167 units/L (55-170) 10/09/17 14:36 CK-MB (CK-2) 2.7 ng/mL (0.0-4.0) 10/09/17 14:36 CK-MB (CK-2) Rel Index 1.6 (0-4) 10/09/17 14:36 Troponin T < 0.010 ng/mL (0.00-0.029) 10/09/17 21:16 Urine Opiates Screen Presumptive negative 10/09/17 21:59 Urine Methadone Screen Presumptive negative 10/09/17 21:59 Ur Barbiturates Screen Presumptive negative 10/09/17 21:59 Ur Phencyclidine Scrn Presumptive negative 10/09/17 21:59 Ur Amphetamines Screen Presumptive negative 10/09/17 21:59 U Benzodiazepines Scrn Presumptive negative 10/09/17 21:59 Urine Cocaine Screen Presumptive negative 10/09/17 21:59 U Marijuana (THC) Screen Presumptive negative 10/09/17 21:59 Drugs of Abuse Note Disclamer 10/09/17 21:59 Plasma/Serum Alcohol 0.28 % (0-0.07) H 10/09/17 14:40
[2017-10-10] MEDS: HABITROL TD SCH (10:30)
[2017-10-10] MEDS: PEPCID PO SCH ×2 (10:30→22:27)
[2017-10-10] MEDS: SODIUM CHLORIDE FLUSH SYRINGE 10 ML IV SCH ×2 (10:30→22:28)
[2017-10-10] MEDS: COREG PO SCH ×2 (10:30→22:26)
[2017-10-10] MEDS: ZESTRIL PO SCH (10:30)
[2017-10-10] MEDS: IMDUR PO SCH (10:30)
[2017-10-10] MEDS: BABY ASPIRIN PO SCH (10:30)
[2017-10-10] MEDS: NORVASC PO SCH (10:30)
[2017-10-10] MEDS: LOVENOX SUB-Q SCH (22:27)
[2017-10-11 05:35] LABS: Hematocrit 46.1 % (35.5-45.6); Hemoglobin 15.5 gm/dl (11.8-15.2); Mean Corpuscular HGB Conc 34 % (32-34); Mean Corpuscular Hemoglobin 32 pg (28-32); Mean Corpuscular Volume 93 fl (84-94); Platelet Count 254 K/mm3 (140-440); Red Blood Count 4.94 M/mm3 (3.65-5.03); Red Cell Distribution Width 15.2 % (13.2-15.2)
[2017-10-11 05:44] LABS: INR 0.91 (0.87-1.13)
[2017-10-11 05:54] LABS: BUN/Creatinine Ratio 14; Blood Urea Nitrogen 17 mg/dL (9-20); Calcium 9.4 mg/dL (8.4-10.2); Hemolysis Index 4
[2017-10-11 07:36] LABS: Eosinophils % (Manual) 0 % (0.0-4.3); Total Cells Counted 100
[2017-10-11 07:37] LABS: RBC Morphology Normal
[2017-10-11] MEDS ORDERED: NACL 0.9% 500 ML 500 ML ONE (09:57)
--- NOTE | 2017-10-11 10:53 | Progress Note ---
Assessment and Plan For coronary angiography. - Patient Problems (1) Recurrent chest pain Current Visit: Yes Status: Acute (2) Syncope Current Visit: Yes Status: Acute (3) Abnormal stress test Current Visit: Yes Status: Chronic (4) Alcohol abuse Current Visit: Yes Status: Chronic (5) HTN (hypertension) Current Visit: Yes Status: Chronic Qualifiers: Hypertension type: essential hypertension Qualified Code(s): I10 - Essential (primary) hypertension Subjective Date of service: 10/11/17 Principal diagnosis: Chest pain, syncope, abnormal stress test, NSVT, ETOH abuse Interval history: He continues to experience recurrent chest pain. On the monitor, he has frequent PVCs and brief 3 beat runs of nonsustained VT. Objective Vital Signs Temp Pulse Resp BP BP Pulse Ox 10/11/17 07:30 98.2 F 79 18 119/94 96 10/11/17 05:05 98.3 F 67 20 129/98 98 10/11/17 00:10 98.3 F 80 18 99/71 100 10/10/17 20:50 87 10/10/17 19:46 98.3 F 72 18 126/95 98 10/10/17 15:51 97.9 F 87 20 122/90 98 10/10/17 12:08 90 10/10/17 10:58 97.9 F 113 H 108 H 142/109 98 - Physical Examination General: No Apparent Distress HEENT: Positive: EOMI, Normocephaly, Mucus Membranes Moist Neck: Positive: neck supple, trachea midline Cardiac: Positive: Reg Rate and Rhythm, S1/S2 Lungs: Positive: clear to auscultation Neuro: Positive: Grossly Intact Abdomen: Positive: Soft, Active Bowel Sounds. Negative: Tender Skin: Positive: Clear. Negative: Rash Musculoskeletal: Normal Range of Motion Extremities: Present: normal. Absent: edema - Labs and Meds Coagulation 10/11/17 Range/Units 04:56 PT 12.7 (12.2-14.9) Sec. INR 0.91 (0.87-1.13) CBC 10/11/17 Range/Units 04:56 WBC 4.5 (4.5-11.0) K/mm3 RBC 4.94 (3.65-5.03) M/mm3 Hgb 15.5 H (11.8-15.2) gm/dl Hct 46.1 H (35.5-45.6) % Plt Count 254 (140-440) K/mm3 Comprehensive Metabolic Panel 10/11/17 Range/Units 04:56 Sodium 135 L (137-145) mmol/L Potassium 3.7 (3.6-5.0) mmol/L Chloride 96.2 L (98-107) mmol/L Carbon Dioxide 24 (22-30) mmol/L BUN 17 (9-20) mg/dL Creatinine 1.2 D (0.8-1.5) mg/dL Glucose 105 H (75-100) mg/dL Calcium 9.4 (8.4-10.2) mg/dL - Imaging and Cardiology Echo: report reviewed (07/2017 showed EF 50-55%, impaired relaxation. ) - Telemetry EKG Rhythm: Sinus Rhythm - EKG Sinus rhythms and dysrhythmias: sinus rhythm Ventricular dysrhythmias: non-sustained ventricular
[2017-10-11] MEDS: IMDUR PO SCH (13:29)
[2017-10-11] MEDS: COREG PO SCH ×2 (13:29→21:33)
[2017-10-11] MEDS: BABY ASPIRIN PO SCH (13:29)
[2017-10-11] MEDS: HABITROL TD SCH (13:29)
[2017-10-11] MEDS: PEPCID PO SCH ×2 (13:30→21:33)
[2017-10-11] MEDS: NORVASC PO SCH (13:30)
[2017-10-11] MEDS: ZESTRIL PO SCH (13:30)
[2017-10-11] MEDS: SODIUM CHLORIDE FLUSH SYRINGE 10 ML IV SCH ×2 (13:30→21:35)
[2017-10-11] MEDS: ATIVAN IV PRN (13:34)
[2017-10-11] MEDS: LOVENOX SUB-Q SCH (21:34)
[2017-10-12] MEDS ORDERED: BABY ASPIRIN ONE (08:02)
[2017-10-12] MEDS: BABY ASPIRIN PO SCH ×2 (08:06→11:00)
[2017-10-12] MEDS ORDERED: HEPARIN/NS 5000 UNIT/500ML(CATH LAB) 1,000 ML IR ONE (08:13)
[2017-10-12] MEDS ORDERED: HEPARIN 10,000 UNITS/10 ML ONE (08:14)
[2017-10-12] MEDS ORDERED: VERSED ONE (08:14)
[2017-10-12] MEDS ORDERED: NITROGLYCERIN SYRINGE 3 ML ONE (08:14)
[2017-10-12] MEDS ORDERED: CALAN ONE (08:14)
[2017-10-12] MEDS ORDERED: XYLOCAINE 2% INFILTRATI ONE (08:14)
[2017-10-12] MEDS ORDERED: SUBLIMAZE ONE (08:15)
[2017-10-12] MEDS ORDERED: NACL 0.9% 500 ML 500 ML ONE (08:42)
--- NOTE | 2017-10-12 08:44 | Progress Note ---
Assessment and Plan Assessment and plan: Chest pain. For cardiac cath today. On Aspirin, Coreg, Imdur cardiology following Hypertensive urgency. Continue Imdur, Lisinopril, Coreg, Norvasc Alcohol abuse. i counseled him on quitting DVT prophylaxis with Lovenox Full code status History Interval history: Chest pain Passed out Dizziness Hospitalist Physical - Physical exam Narrative exam: Gen : Not in acute distress, HEENT:Normocephalic, atraumatic Neck: supple, No JVD Lungs: Clear to auscultation, bilaterally, no rhonchi Heart :S1 and S2 reg, no murmurs, rubs or gallop Abd:soft, non tender, non distended, normal bowel sounds Ext: No edema, no clubbing, no cyanosis, Neuro: Awake,alert,oriented x 3, no focal signs - Constitutional Vitals: Temp Pulse Resp BP Pulse Ox 97.7 F 74 18 118/86 96 10/12/17 04:17 10/12/17 04:17 10/12/17 04:17 10/12/17 04:17 10/12/17 04:17 Results - Labs CBC & Chem 7: 10/11/17 04:56 10/11/17 04:56 Labs: Laboratory Last Values WBC 4.5 K/mm3 (4.5-11.0) 10/11/17 04:56 RBC 4.94 M/mm3 (3.65-5.03) 10/11/17 04:56 Hgb 15.5 gm/dl (11.8-15.2) H 10/11/17 04:56 Hct 46.1 % (35.5-45.6) H 10/11/17 04:56 MCV 93 fl (84-94) 10/11/17 04:56 MCH 32 pg (28-32) 10/11/17 04:56 MCHC 34 % (32-34) 10/11/17 04:56 RDW 15.2 % (13.2-15.2) 10/11/17 04:56 Plt Count 254 K/mm3 (140-440) 10/11/17 04:56 [place] % (Auto) Flower Stripper 10/11/17 04:56 Add Manual Diff Complete 10/11/17 04:56 Total Counted 100 10/11/17 04:56 Seg Neuts % (Manual) 48.0 % (40.0-70.0) 10/11/17 04:56 Band Neutrophils % 0 % 10/11/17 04:56 Lymphocytes % (Manual) 21.0 % (13.4-35.0) 10/11/17 04:56 Reactive Lymphs % (Man) 0 % 10/11/17 04:56 Monocytes % (Manual) 27.0 % (0.0-7.3) H 10/11/17 04:56 Eosinophils % (Manual) 0 % (0.0-4.3) 10/11/17 04:56 Basophils % (Manual) 2.0 % (0.0-1.8) H 10/11/17 04:56 Metamyelocytes % 2.0 % 10/11/17 04:56 Myelocytes % 0 % 10/11/17 04:56 Promyelocytes % 0 % 10/11/17 04:56 Blast Cells % 0 % 10/11/17 04:56 Nucleated RBC % Not Reportable 10/11/17 04:56 Seg Neutrophils # Man 2.2 K/mm3 (1.8-7.7) 10/11/17 04:56 Band Neutrophils # 0.0 K/mm3 10/11/17 04:56 Lymphocytes # (Manual) 0.9 K/mm3 (1.2-5.4) L 10/11/17 04:56 Abs React Lymphs (Man) 0.0 K/mm3 10/11/17 04:56 Monocytes # (Manual) 1.2 K/mm3 (0.0-0.8) H 10/11/17 04:56 Eosinophils # (Manual) 0.0 K/mm3 (0.0-0.4) 10/11/17 04:56 Basophils # (Manual) 0.1 K/mm3 (0.0-0.1) 10/11/17 04:56 Metamyelocytes # 0.1 K/mm3 10/11/17 04:56 Myelocytes # 0.0 K/mm3 10/11/17 04:56 Promyelocytes # 0.0 K/mm3 10/11/17 04:56 Blast Cells # 0.0 K/mm3 10/11/17 04:56 WBC Morphology Not Reportable 10/11/17 04:56 Hypersegmented Neuts Not Reportable 10/11/17 04:56 Hyposegmented Neuts Not Reportable 10/11/17 04:56 Hypogranular Neuts Not Reportable 10/11/17 04:56 Smudge Cells Not Reportable 10/11/17 04:56 Toxic Granulation Not Reportable 10/11/17 04:56 Toxic Vacuolation Not Reportable 10/11/17 04:56 Dohle Bodies Not Reportable 10/11/17 04:56 Pelger-Huet Anomaly Not Reportable 10/11/17 04:56 Esther Rods Not Reportable 10/11/17 04:56 Platelet Estimate Appears normal 10/11/17 04:56 Clumped Platelets Not Reportable 10/11/17 04:56 Plt Clumps, EDTA Not Reportable 10/11/17 04:56 Large Platelets Not Reportable 10/11/17 04:56 Giant Platelets Not Reportable 10/11/17 04:56 Platelet Satelliting Not Reportable 10/11/17 04:56 Plt Morphology Comment Not Reportable 10/11/17 04:56 RBC Morphology Normal 10/11/17 04:56 Dimorphic RBCs Not Reportable 10/11/17 04:56 Polychromasia Not Reportable 10/11/17 04:56 Hypochromasia Not Reportable 10/11/17 04:56 Poikilocytosis Not Reportable 10/11/17 04:56 Anisocytosis Not Reportable 10/11/17 04:56 Microcytosis Not Reportable 10/11/17 04:56 Macrocytosis Not Reportable 10/11/17 04:56 Spherocytes Not Reportable 10/11/17 04:56 Pappenheimer Bodies Not Reportable 10/11/17 04:56 Sickle Cells Not Reportable 10/11/17 04:56 Target Cells Not Reportable 10/11/17 04:56 Tear Drop Cells Not Reportable 10/11/17 04:56 Ovalocytes Not Reportable 10/11/17 04:56 Helmet Cells Not Reportable 10/11/17 04:56 Wilson-[place] Bodies Not Reportable 10/11/17 04:56 [place] Rings Not Reportable 10/11/17 04:56 Davon Cells Not Reportable 10/11/17 04:56 Bite Cells Not Reportable 10/11/17 04:56 Crenated Cell Not Reportable 10/11/17 04:56 Elliptocytes Not Reportable 10/11/17 04:56 Acanthocytes (Spur) Not Reportable 10/11/17 04:56 Rouleaux Not Reportable 10/11/17 04:56 Hemoglobin C Crystals Not Reportable 10/11/17 04:56 Schistocytes Not Reportable 10/11/17 04:56 Malaria parasites Not Reportable 10/11/17 04:56 Bubba Bodies Not Reportable 10/11/17 04:56 Hem Pathologist Commnt No 10/11/17 04:56 PT 12.7 Sec. (12.2-14.9) 10/11/17 04:56 INR 0.91 (0.87-1.13) 10/11/17 04:56 APTT 26.9 Sec. (24.2-36.6) 10/09/17 14:40 D-Dimer 400.21 ng/mlDDU (0-234) H 10/09/17 18:38 Sodium 135 mmol/L (137-145) L 10/11/17 04:56 Potassium 3.7 mmol/L (3.6-5.0) 10/11/17 04:56 Chloride 96.2 mmol/L (98-107) L 10/11/17 04:56 Carbon Dioxide 24 mmol/L (22-30) 10/11/17 04:56 Anion Gap 19 mmol/L 10/11/17 04:56 BUN 17 mg/dL (9-20) 10/11/17 04:56 Creatinine 1.2 mg/dL (0.8-1.5) D 10/11/17 04:56 Estimated GFR > 60 ml/min 10/11/17 04:56 BUN/Creatinine Ratio 14 % 10/11/17 04:56 Glucose 105 mg/dL (75-100) H 10/11/17 04:56 POC Glucose 93 (70-105) 10/11/17 05:54 Hemoglobin A1c 5.1 % (4-6) 10/10/17 07:54 Calcium 9.4 mg/dL (8.4-10.2) 10/11/17 04:56 Magnesium 1.90 mg/dL (1.7-2.3) 10/09/17 14:36 Total Creatine Kinase 167 units/L (55-170) 10/09/17 14:36 CK-MB (CK-2) 2.7 ng/mL (0.0-4.0) 10/09/17 14:36 CK-MB (CK-2) Rel Index 1.6 (0-4) 10/09/17 14:36 Troponin T < 0.010 ng/mL (0.00-0.029) 10/09/17 21:16 Urine Opiates Screen Presumptive negative 10/09/17 21:59 Urine Methadone Screen Presumptive negative 10/09/17 21:59 Ur Barbiturates Screen Presumptive negative 10/09/17 21:59 Ur Phencyclidine Scrn Presumptive negative 10/09/17 21:59 Ur Amphetamines Screen Presumptive negative 10/09/17 21:59 U Benzodiazepines Scrn Presumptive negative 10/09/17 21:59 Urine Cocaine Screen Presumptive negative 10/09/17 21:59 U Marijuana (THC) Screen Presumptive negative 10/09/17 21:59 Drugs of Abuse Note Disclamer 10/09/17 21:59 Plasma/Serum Alcohol 0.28 % (0-0.07) H 10/09/17 14:40
--- NOTE | 2017-10-12 09:30 | Progress Note ---
Assessment and Plan chest pain cad htn chol eoth abuse nstach vt rec: cont current hospital meds and eoth cessation and maybe discharged from [facility] point [facility] Subjective Date of service: 10/12/17 Principal diagnosis: Chest pain, syncope, abnormal stress test, NSVT, ETOH abuse Interval history: pt has no chest pain this am Objective Vital Signs Temp Pulse Resp BP Pulse Ox 10/12/17 04:17 97.7 F 74 18 118/86 96 10/12/17 00:40 98.7 F 61 18 107/79 96 10/11/17 21:33 84 126/93 10/11/17 20:25 72 10/11/17 19:58 98.2 F 77 18 126/93 100 10/11/17 16:19 98.1 F 75 16 104/72 99 10/11/17 12:00 66 10/11/17 11:27 98.4 F 68 18 137/102 100 - Physical Examination General: No Apparent Distress HEENT: Positive: EOMI, Normocephaly, Mucus Membranes Moist Neck: Positive: neck supple, trachea midline Cardiac: Positive: Reg Rate and Rhythm Lungs: Positive: clear to auscultation Neuro: Positive: Grossly Intact Abdomen: Positive: Soft, Active Bowel Sounds. Negative: Tender Skin: Positive: Clear. Negative: Rash Musculoskeletal: Normal Range of Motion Extremities: Present: normal. Absent: edema - Imaging and Cardiology EKG: report reviewed Echo: report reviewed (07/2017 showed EF 50-55%, impaired relaxation. ) Cardiac cath: report reviewed (lt main patent, lad patent, lcx patent ramus patent, rca mid 20% normal lv function ) - Telemetry EKG Rhythm: Sinus Rhythm - EKG Sinus rhythms and dysrhythmias: sinus rhythm Ventricular dysrhythmias: non-sustained ventricular
--- NOTE | 2017-10-12 09:47 | Cardiac Catherization Report ---
LEFT HEART CATHETERIZATION CLINICAL INFORMATION: This is a 52-year-old alcoholic, hypertension, hyperlipidemia, presents with recurrent chest pain with mildly abnormal stress test, is here for left heart cath. Procedure was done under moderate sedation. Total sedation time 20 minutes; start time is 9:02 a.m., finish 9:22 a.m.; 1 mg Versed and 50 mcg fentanyl was given. PROCEDURE DETAILS: Procedure was done via the right radial artery, sterile technique, local anesthesia, 6-[place] radial sheath inserted. PROCEDURE FINDINGS: Left system engaged with JL3.5 catheter. Left main is large and patent, trifurcates into large LAD that is patent. Diagonal 1 is a medium caliber vessel, patent. Ramus is large caliber vessel, patent. Circ and AV groove is a large caliber vessel, patent. OM1 and OM2 are medium caliber vessel, patent. RCA is engaged with JR4, is a large dominant vessel, proximal patent, mid 20%, distal patent, bifurcates into medium caliber. PDA, PLV are patent. LV gram done in FRANCY and JOSEPH view shows normal LV function, LVEDP of 11 mmHg, LV is 141/11, aortic is 137/97. No gradient across the aortic valve on pullback. 5-[place] catheters were taken over a guidewire, a 6-[place] radial sheath was discontinued. Radial band applied. No hematoma, no bleeding. SUMMARY: 1. Left main patent, LAD patent, ramus patent, circ patent, RCA mid 20% with normal LV function. 2. Continue risk factor modification, and the patient tolerated well. JOB# [id number] RADHA/JAYNE
[2017-10-12] MEDS: NORVASC PO SCH (10:30)
[2017-10-12] MEDS: COREG PO SCH (10:30)
[2017-10-12] MEDS: ZESTRIL PO SCH (10:30)
[2017-10-12] MEDS: SODIUM CHLORIDE FLUSH SYRINGE 10 ML IV SCH (10:30)
[2017-10-12] MEDS: HABITROL TD SCH (10:30)
--- NOTE | 2017-10-12 12:58 | Discharge Summary ---
Providers - Providers Date of Admission: 10/09/17 17:12 Date of discharge: 10/12/17 Attending physician: ZACH PYLE 10/09/17 16:19 Consult to Physician [CONS] Urgent Comment: Consulting Provider: ARASELI HERRERA Physician Instructions: Reason For Exam: chest pain 10/12/17 09:29 Consult to Cardiac Rehabilitation [CONS] Routine Reason For Exam: Cardiac Rehab Evaluation Primary care physician: HEALTHCARE REPRESENTATIVE Hospitalization Condition: Fair Disposition: DC-01 TO HOME OR SELFCARE Core Measure Documentation - Palliative Care Palliative Care/ Comfort Measures: Not Applicable - Core Measures Any of the following diagnoses?: none Exam - Constitutional Vitals: Temp Pulse Resp BP Pulse Ox 97.4 F L 74 18 114/83 97 10/12/17 11:19 10/12/17 11:19 10/12/17 11:19 10/12/17 11:19 10/12/17 11:19 Plan Activity: advance as tolerated Diet: low fat, low cholesterol, low salt Additional Instructions: 1.Follow up with PCP or [facility] in 1 week. 2.Follow up with [facility] in 1 week. 3.Avoid Alcohol Follow up with: PRIMARY MD ALVINA [Primary Care Provider] - 3-5 Days
[2017-10-12] MEDS: IMDUR PO SCH (15:09)
[2017-10-12] MEDS: PEPCID PO SCH (15:11)
[2017-10-12 15:44] VITALS: BP 113/80
== END 2017-10-12 18:00 | disposition home or self-care (01) | DRG 287 ==
LOC: ED 13:44 → 4A 17:12
PROVIDERS: ADMIT Internal Medicine; ATTEND Internal Medicine
PROC: 4A023N7 Measurement of Cardiac Sampling and Pressure, Left Heart, Percutaneous Approach (ICD-10-PCS; principal; 2017-10-12)
PROC: B2111ZZ Fluoroscopy of Multiple Coronary Arteries using Low Osmolar Contrast (ICD-10-PCS; 2017-10-12)
PROC: B2151ZZ Fluoroscopy of Left Heart using Low Osmolar Contrast (ICD-10-PCS; 2017-10-12)
DX: R07.89 Other chest pain (principal); I47.2 Ventricular tachycardia; F10.10 Alcohol abuse, uncomplicated; R55 Syncope and collapse; I10 Essential (primary) hypertension; Y90.9 Presence of alcohol in blood, level not specified; F17.200 Nicotine dependence, unspecified, uncomplicated; Z79.82 Long term (current) use of aspirin; I25.10 Atherosclerotic heart disease of native coronary artery without angina pectoris; I16.0 Hypertensive urgency; J44.9 Chronic obstructive pulmonary disease, unspecified
CPT/HCPCS: 36415; 70450; 71045; 80048; 80307; 80320; 82550; 82553; 82962; 83036; 83735; 84484; 85007; 85025; 85379; 85610; 85730; 93005; 93010; 93458; 96365; 96375; 99406; A9270-GY; C1894; G0480; J0360; J1644; J1650; J2060; J2250; J2270; J3010; J3411; J7030; J7040; Q9967

== ENCOUNTER 2017-10-26 19:19 | Inpatient (IN) | payer SELFPAY ==
[2017-10-26] MEDS ORDERED: NACL 0.9% 1000 ML 1,000 ML IV ONE ×2 (19:44→21:48)
[2017-10-26 20:11] LABS: Basophils # (Auto) 0.1 K/mm3 (0.0-0.1); Basophils % (Auto) 0.6 % (0.0-1.8); Eosinophils % (Auto) 0.2 % (0.0-4.3); Hematocrit 36.3 % (35.5-45.6); Hemoglobin 12.4 gm/dl (11.8-15.2); Lymphocytes # (Auto) 1.2 K/mm3 (1.2-5.4); Lymphocytes % (Auto) 14.6 % (13.4-35.0); Mean Corpuscular HGB Conc 34 % (32-34); Mean Corpuscular Hemoglobin 32 pg (28-32); Mean Corpuscular Volume 94 fl (84-94); Monocytes % (Auto) 11.7 % (0.0-7.3); Platelet Count 245 K/mm3 (140-440); Red Blood Count 3.89 M/mm3 (3.65-5.03); Red Cell Distribution Width 14.6 % (13.2-15.2)
[2017-10-26 20:25] LABS: INR 0.96 (0.87-1.13)
[2017-10-26 20:26] LABS: Alanine Aminotransferase 47 units/L (7-56); Albumin 3.2 g/dL (3.9-5); BUN/Creatinine Ratio 47; Blood Urea Nitrogen 33 mg/dL (9-20); Calcium 8.3 mg/dL (8.4-10.2); Hemolysis Index 10; Lipase 20 units/L (13-60); Partial Thromboplastin Time 23.6 Sec. (24.2-36.6)
[2017-10-26] MEDS ORDERED: ZOFRAN ONE (20:47)
[2017-10-26] MEDS ORDERED: ZOFRAN IV ONE (21:00)
[2017-10-26] MEDS ORDERED: PROTONIX IV ONE (21:47)
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
--- NOTE | 2017-10-26 22:13 | XRay Report ---
FINAL REPORT PROCEDURE: XR CHEST 1V AP TECHNIQUE: Chest radiograph anteroposterior view. CPT 99144 HISTORY: chest pain COMPARISON: 09/05/2017 FINDINGS: Heart: Normal. Mediastinum/Vessels: Normal. Lungs/Pleural space: Normal. Bony thorax: No acute osseous abnormality. Life support devices: None. IMPRESSION: No acute cardiopulmonary abnormality.
[2017-10-26] MEDS: PROTONIX 80 MG in NACL 0.9% 100 ML IV SCH (22:30)
[2017-10-27] MEDS ORDERED: PERCOCET 5/325 PO PRN (02:33)
[2017-10-27] MEDS ORDERED: ZOFRAN IV PRN (02:33)
[2017-10-27] MEDS ORDERED: MORPHINE IV PRN (02:33)
[2017-10-27] MEDS ORDERED: TYLENOL PO PRN (02:33)
[2017-10-27] MEDS ORDERED: SODIUM CHLORIDE FLUSH SYRINGE 10 ML IV PRN (02:33)
[2017-10-27] MEDS ORDERED: AMBIEN PO PRN (02:33)
[2017-10-27] MEDS ORDERED: ATIVAN IV PRN ×3 (03:10)
--- NOTE | 2017-10-27 03:38 | History and Physical Report ---
History of Present Illness Date of examination: 10/27/17 Date of admission: 10/27/17 Chief complaint: "I was throwing up blood" History of present illness: Patient is a 52-year-old -Mosoth[place] male with history of alcohol abuse who presented to the ED on account of a day history of bloody emesis. He described it as dark red in color. He has associated generalized abdominal pain and passage of bloody diarrhea. He also admitted to midsternal chest pain which has resolved, diaphoresis, shortness of breath, palpitation, dry cough, headaches and dizziness. No fever, chills, leg swelling, orthopnea or PND. No syncope or loss of consciousness. Past History Past Medical History: hypertension, hyperlipidemia Past Surgical History: Other (right elbow surgery) Social history: smoking (cigar for 28 years), alcohol abuse (for 20 years, drinks 4 bottles of 24 ounces of beer daily), other (denies illicit drug use) Family history: other (reviewed and noncontributory) Medications and Allergies Allergies Allergy/AdvReac Type Severity Reaction Status Date / Time No Known Allergies Allergy Verified 07/09/17 22:12 Home Medications Medication Instructions Recorded Confirmed Last Taken Type Aspirin [Aspirin BABY CHEW TAB] 81 mg PO QDAY #30 tab.chew 09/07/17 10/26/17 Unknown Rx AtorvaSTATin [Lipitor] 40 mg PO QHS #30 tablet 09/07/17 10/26/17 Unknown Rx Carvedilol [Coreg] 12.5 mg PO BID #60 tablet 09/07/17 10/26/17 Unknown Rx ISOSORBIDE MONOnitrate [Imdur ER] 30 mg PO QDAY #30 tablet 09/07/17 10/26/17 Unknown Rx Lisinopril [Zestril TAB] 20 mg PO QDAY #30 tablet 09/07/17 10/26/17 Unknown Rx amLODIPine [Norvasc] 10 mg PO QDAY #30 tablet 09/07/17 10/26/17 Unknown Rx Active Meds: Active Medications Acetaminophen (Tylenol) 650 mg PO Q4H PRN PRN Reason: Pain MILD(1-3)/Fever >100.5/LUCERO Pantoprazole Sodium 80 mg/ (Sodium Chloride) 100 mls @ 10 mls/hr IV DIRECT [place]RI[place] Last Admin: 07/20/18 22:30 Dose: 8 mg/hr, 10 mls/hr Sodium Chloride (Nacl 0.9% 1000 Ml) 1,000 mls @ 100 mls/hr IV DIRECT [place] Lorazepam (Ativan) 2 mg IV Q1H PRN PRN Reason: CIWA-Ar 8-15 Lorazepam (Ativan) 4 mg IV Q1H PRN PRN Reason: CIWA-Ar 16-25 Lorazepam (Ativan) 4 mg IV Q15MIN PRN PRN Reason: CIWA-Ar >25 Morphine Sulfate (Morphine) 2 mg IV Q4H PRN PRN Reason: Pain, Moderate (4-6) Ondansetron HCl (Zofran) 4 mg IV Q6H PRN PRN Reason: Nausea And Vomiting Oxycodone/Acetaminophen (Percocet 5/325) 1 tab PO Q6H PRN PRN Reason: Pain, Moderate (4-6) Sodium Chloride (Sodium Chloride Flush Syringe 10 Ml) 10 ml IV BID [place] Sodium Chloride (Sodium Chloride Flush Syringe 10 Ml) 10 ml IV PRN PRN PRN Reason: LINE FLUSH Zolpidem Tartrate (Ambien) 5 mg PO QHS PRN PRN Reason: Insomnia Review of Systems All systems: negative (except as documented in the HPI, all other systems were reviewed and negative) Exam - Constitutional Vitals: Temp Pulse Resp BP Pulse Ox 98.3 F 100 H 19 131/83 98 10/26/17 19:40 10/26/17 22:30 10/26/17 22:30 10/26/17 22:30 10/26/17 22:00 General appearance: Present: no acute distress, well-nourished - EENT Eyes: Present: PERRL, EOM intact ENT: hearing intact, clear oral mucosa - Neck Neck: Present: supple, normal ROM - Respiratory Respiratory effort: normal Respiratory: bilateral: CTA - Cardiovascular Rhythm: regular Heart Sounds: Present: S1 & S2. Absent: rub, click - Extremities Extremities: pulses symmetrical, No edema Peripheral Pulses: within normal limits - Abdominal General gastrointestinal: Present: soft, non-tender, non-distended, normal bowel sounds - Integumentary Integumentary: Present: clear, warm, dry - Musculoskeletal Musculoskeletal: gait normal, strength equal bilaterally - Psychiatric Psychiatric: appropriate mood/affect, intact judgment & insight - Neurologic Neurologic: CNII-XII intact, moves all extremities Results - Labs CBC & Chem 7: 10/26/17 19:54 10/26/17 19:54 Labs: Laboratory Last Values WBC 8.5 K/mm3 (4.5-11.0) 10/26/17 19:54 RBC 3.89 M/mm3 (3.65-5.03) 10/26/17 19:54 Hgb 12.4 gm/dl (11.8-15.2) 10/26/17 19:54 Hct 36.3 % (35.5-45.6) 10/26/17 19:54 MCV 94 fl (84-94) 10/26/17 19:54 MCH 32 pg (28-32) 10/26/17 19:54 MCHC 34 % (32-34) 10/26/17 19:54 RDW 14.6 % (13.2-15.2) 10/26/17 19:54 Plt Count 245 K/mm3 (140-440) 10/26/17 19:54 Lymph % (Auto) 14.6 % (13.4-35.0) 10/26/17 19:54 [place] % (Auto) 11.7 % (0.0-7.3) H 10/26/17 19:54 Eos % (Auto) 0.2 % (0.0-4.3) 10/26/17 19:54 Baso % (Auto) 0.6 % (0.0-1.8) 10/26/17 19:54 Lymph # 1.2 K/mm3 (1.2-5.4) 10/26/17 19:54 [place] # 1.0 K/mm3 (0.0-0.8) H 10/26/17 19:54 Eos # 0.0 K/mm3 (0.0-0.4) 10/26/17 19:54 Baso # 0.1 K/mm3 (0.0-0.1) 10/26/17 19:54 Seg Neutrophils % 72.9 % (40.0-70.0) H 10/26/17 19:54 Seg Neutrophils # 6.2 K/mm3 (1.8-7.7) 10/26/17 19:54 PT 13.3 Sec. (12.2-14.9) 10/26/17 19:54 INR 0.96 (0.87-1.13) 10/26/17 19:54 APTT 23.6 Sec. (24.2-36.6) L 10/26/17 19:54 Sodium 138 mmol/L (137-145) 10/26/17 19:54 Potassium 4.0 mmol/L (3.6-5.0) 10/26/17 19:54 Chloride 100.5 mmol/L (98-107) 10/26/17 19:54 Carbon Dioxide 21 mmol/L (22-30) L 10/26/17 19:54 Anion Gap 21 mmol/L 10/26/17 19:54 BUN 33 mg/dL (9-20) H 10/26/17 19:54 Creatinine 0.7 mg/dL (0.8-1.5) L 10/26/17 19:54 Estimated GFR > 60 ml/min 10/26/17 19:54 BUN/Creatinine Ratio 47 % 10/26/17 19:54 Glucose 88 mg/dL (75-100) 10/26/17 19:54 Calcium 8.3 mg/dL (8.4-10.2) L 10/26/17 19:54 Total Bilirubin 0.30 mg/dL (0.1-1.2) 10/26/17 19:54 AST 64 units/L (5-40) H 10/26/17 19:54 ALT 47 units/L (7-56) 10/26/17 19:54 Alkaline Phosphatase 43 units/L (35-129) 10/26/17 19:54 Troponin T < 0.010 ng/mL (0.00-0.029) 10/26/17 21:40 Total Protein 5.8 g/dL (6.3-8.2) L 10/26/17 19:54 Albumin 3.2 g/dL (3.9-5) L 10/26/17 19:54 Albumin/Globulin Ratio 1.2 % 10/26/17 19:54 Lipase 20 units/L (13-60) 10/26/17 19:54 Blood Type O POSITIVE 10/26/17 19:54 Antibody Screen Negative 10/26/17 19:54 Assessment and Plan Assessment and plan: Upper GI bleed -Continue Protonix drip -Monitor H&H and transfuse as needed -GI consulted Hypertension, stable History of alcohol abuse -Patient counseled on cessation -C1WA protocol Tobacco abuse -Counseled on cessation Prophylaxis -DVT prophylaxis with SCD 40 minutes spent coordinating care
[2017-10-27 05:16] LABS: Hematocrit 29.1 % (35.5-45.6); Hemoglobin 9.9 gm/dl (11.8-15.2)
[2017-10-27] MEDS: PROTONIX 80 MG in NACL 0.9% 100 ML IV SCH ×2 (07:02→17:20)
[2017-10-27] MEDS: NACL 0.9% 1000 ML 1,000 ML IV SCH ×2 (07:06→14:52)
[2017-10-27] MEDS: SODIUM CHLORIDE FLUSH SYRINGE 10 ML IV SCH ×2 (09:15→22:43)
[2017-10-27 10:03] LABS: Hematocrit 28.9 % (35.5-45.6); Hemoglobin 10.1 gm/dl (11.8-15.2)
--- NOTE | 2017-10-27 10:46 | Event Note ---
Date: 10/27/17 52-year-old -Greenlandic male patient with history of alcohol abuse was admitted this morning with hematemesis Patient's H&H is stable, vital signs stable, medical records reviewed, GI consulted, Agree with the current management, pending GI evaluation, possible endoscopy, closely monitor H&H and transfuse as needed
[2017-10-27 16:29] LABS: Hematocrit 26.8 % (35.5-45.6); Hemoglobin 9.5 gm/dl (11.8-15.2)
--- NOTE | 2017-10-27 18:45 | Consultation ---
History of Present Illness - Reason for Consult Consult date: 10/27/17 GI bleed - History of Present Illness Mr. Muro is a 52-year-old man who has been homeless for over 15 years. He drinks 8 12 ounce beers per day. He was in his usual state of health until approximately 2 days ago, when he noted onset of black tarry bowel movements as well as nausea and vomiting with black emesis. He presented to the emergency room yesterday and had Hemoccult positive dark stool noted. He was admitted for further evaluation. Today, his last episode of emesis showed yellowish fluid with no blood in it. Patient denies prior similar symptoms. He denies prior abdominal pain nausea vomiting or change in bowel movements. He has been losing weight recently, but he states that this is due to inability to get food. He states he was cut off from his food stamps recently because he was not able to make it to the office. He denies early satiety. He has no known prior history of liver disease. He has no known history of prior peptic ulcer disease. He denies GERD symptoms or dysphagia. He denies aspirin or nonsteroidal usage. Patient usually has a hemoglobin of 15, and on this admission, it has stabilized at approximately 9.5. Past History Past Medical History: hypertension, hyperlipidemia Past Surgical History: Other (right elbow surgery) Social history: smoking (cigar for 28 years), alcohol abuse (for 20 years, drinks 4 bottles of 24 ounces of beer daily), other (denies illicit drug use) Family history: other (reviewed and noncontributory) Medications and Allergies Allergies Allergy/AdvReac Type Severity Reaction Status Date / Time No Known Allergies Allergy Verified 07/09/17 22:12 Home Medications Medication Instructions Recorded Confirmed Last Taken Type Aspirin [Aspirin BABY CHEW TAB] 81 mg PO QDAY #30 tab.chew 09/07/17 10/26/17 Unknown Rx AtorvaSTATin [Lipitor] 40 mg PO QHS #30 tablet 09/07/17 10/26/17 Unknown Rx Carvedilol [Coreg] 12.5 mg PO BID #60 tablet 09/07/17 10/26/17 Unknown Rx ISOSORBIDE MONOnitrate [Imdur ER] 30 mg PO QDAY #30 tablet 09/07/17 10/26/17 Unknown Rx Lisinopril [Zestril TAB] 20 mg PO QDAY #30 tablet 09/07/17 10/26/17 Unknown Rx amLODIPine [Norvasc] 10 mg PO QDAY #30 tablet 09/07/17 10/26/17 Unknown Rx Active Meds: Active Medications Acetaminophen (Tylenol) 650 mg PO Q4H PRN PRN Reason: Pain MILD(1-3)/Fever >100.5/LUCERO Pantoprazole Sodium 80 mg/ (Sodium Chloride) 100 mls @ 10 mls/hr IV DIRECT [place] Last Admin: 10/27/17 17:20 Dose: 8 mg/hr, 10 mls/hr Sodium Chloride (Nacl 0.9% 1000 Ml) 1,000 mls @ 100 mls/hr IV DIRECT [place] Last Admin: 10/27/17 14:52 Dose: 100 mls/hr Lorazepam (Ativan) 2 mg IV Q1H PRN PRN Reason: CIWA-Ar 8-15 Lorazepam (Ativan) 4 mg IV Q1H PRN PRN Reason: CIWA-Ar 16-25 Lorazepam (Ativan) 4 mg IV Q15MIN PRN PRN Reason: CIWA-Ar >25 Morphine Sulfate (Morphine) 2 mg IV Q4H PRN PRN Reason: Pain, Moderate (4-6) Ondansetron HCl (Zofran) 4 mg IV Q6H PRN PRN Reason: Nausea And Vomiting Last Admin: 10/27/17 09:35 Dose: 4 mg Oxycodone/Acetaminophen (Percocet 5/325) 1 tab PO Q6H PRN PRN Reason: Pain, Moderate (4-6) Sodium Chloride (Sodium Chloride Flush Syringe 10 Ml) 10 ml IV BID [facility] Last Admin: 10/27/17 09:15 Dose: 10 ml Sodium Chloride (Sodium Chloride Flush Syringe 10 Ml) 10 ml IV PRN PRN PRN Reason: LINE FLUSH Zolpidem Tartrate (Ambien) 5 mg PO QHS PRN PRN Reason: Insomnia Review of Systems All systems: negative (as noted) Exam - Constitutional Vitals: Temp Pulse Resp BP Pulse Ox 98.7 F 78 19 141/96 98 10/27/17 17:26 10/27/17 17:26 10/27/17 17:28 10/27/17 17:28 10/27/17 17:26 General appearance: Present: no acute distress, other (Thin) - EENT Eyes: Present: PERRL, EOM intact ENT: hearing intact, poor dentition - Respiratory Respiratory effort: normal Respiratory: bilateral: CTA - Cardiovascular Rhythm: regular Heart Sounds: Present: S1 & S2 - Abdominal General gastrointestinal: Present: soft, non-tender Results - Labs CBC & Chem 7: 10/27/17 16:07 10/26/17 19:54 Labs: Abnormal lab results 10/26/17 10/26/17 10/26/17 Range/Units 19:54 19:54 19:54 Hgb (11.8-15.2) gm/dl Hct (35.5-45.6) % [place] % (Auto) 11.7 H (0.0-7.3) % [place] # 1.0 H (0.0-0.8) K/mm3 Seg Neutrophils % 72.9 H (40.0-70.0) % APTT 23.6 L (24.2-36.6) Sec. Carbon Dioxide 21 L (22-30) mmol/L BUN 33 H (9-20) mg/dL Creatinine 0.7 L (0.8-1.5) mg/dL Calcium 8.3 L (8.4-10.2) mg/dL AST 64 H (5-40) units/L Total Protein 5.8 L (6.3-8.2) g/dL Albumin 3.2 L (3.9-5) g/dL 10/27/17 10/27/17 10/27/17 Range/Units 04:43 09:46 16:07 Hgb 9.9 L 10.1 L 9.5 L (11.8-15.2) gm/dl Hct 29.1 L D 28.9 L 26.8 L (35.5-45.6) % [place] % (Auto) (0.0-7.3) % [place] # (0.0-0.8) K/mm3 Seg Neutrophils % (40.0-70.0) % APTT (24.2-36.6) Sec. Carbon Dioxide (22-30) mmol/L BUN (9-20) mg/dL Creatinine (0.8-1.5) mg/dL Calcium (8.4-10.2) mg/dL AST (5-40) units/L Total Protein (6.3-8.2) g/dL Albumin (3.9-5) g/dL Assessment and Plan 1. GI bleed - patient describes probable coffee-ground emesis as well as melena. This is suggestive of an upper GI bleed. He does not have laboratory findings consistent with portal hypertension. He may well have peptic ulcer disease. Currently he is stable, and on PPI. We will do an upper endoscopy to evaluate for pathology. - Monitor H&H and transfuse as needed - Continue PPI - EGD tomorrow 2. Alcohol abuse - patient advised regarding abstinence.
[2017-10-28] MEDS: NACL 0.9% 1000 ML 1,000 ML IV SCH (04:45)
[2017-10-28 07:16] LABS: Hematocrit 25.4 % (35.5-45.6); Hemoglobin 8.5 gm/dl (11.8-15.2); Mean Corpuscular HGB Conc 33 % (32-34); Mean Corpuscular Hemoglobin 32 pg (28-32); Mean Corpuscular Volume 95 fl (84-94); Platelet Count 178 K/mm3 (140-440); Red Blood Count 2.68 M/mm3 (3.65-5.03); Red Cell Distribution Width 14.6 % (13.2-15.2)
[2017-10-28 07:37] LABS: BUN/Creatinine Ratio 20; Blood Urea Nitrogen 14 mg/dL (9-20); Calcium 8.4 mg/dL (8.4-10.2); Hemolysis Index 3
[2017-10-28 09:33] LABS: Basophils % (Manual) 0 % (0.0-1.8); Platelet Estimate Consistent w Auto; RBC Morphology Normal; Target Cells Few; Total Cells Counted 100
[2017-10-28] MEDS: PROTONIX 80 MG in NACL 0.9% 100 ML IV SCH ×2 (09:57→23:26)
[2017-10-28] MEDS: SODIUM CHLORIDE FLUSH SYRINGE 10 ML IV SCH ×2 (09:58→22:00)
--- NOTE | 2017-10-28 10:03 | Progress Note ---
Assessment and Plan Assessment and plan: --Acute Upper GI bleeding Nothing by mouth, IV Protonix, GI following Possible endoscopy today --Acute blood loss anemia; Mild drop in H&H, closely monitor --Hypertension, well controlled Continue current antihypertensives and PRN medications --History of chronic alcohol abuse; Counseling done advised to quit alcohol intake Closely monitor for any withdrawal symptoms, Patient is on CIWA protocol --Ongoing Tobacco abuse Smoking cessation counseling, nicotine patch as needed --DVT prophylaxis; SCDs Follow endoscopy findings, if negative and if patient is stable patient can be discharged home this evening History Interval history: Patient seen and examined medical records reviewed No new episodes of hematemesis, patient requests food Scheduled for EGD today The patient is alert awake oriented 3 Vital signs reviewed Hospitalist Physical - Constitutional Vitals: Temp Pulse Resp BP Pulse Ox 98.6 F 74 24 159/113 97 10/28/17 05:30 10/28/17 05:30 10/28/17 05:30 10/28/17 05:30 10/28/17 05:30 General appearance: Present: no acute distress, well-nourished, other (Thin) - EENT Eyes: Present: PERRL, EOM intact - Neck Neck: Present: supple, normal ROM - Respiratory Respiratory effort: normal Respiratory: bilateral: diminished, negative: rales, rhonchi, wheezing - Cardiovascular Rhythm: regular Heart Sounds: Present: S1 & S2 - Extremities Extremities: no ischemia, No edema - Abdominal General gastrointestinal: soft, non-tender, non-distended, normal bowel sounds - Integumentary Integumentary: Present: clear, warm - Psychiatric Psychiatric: appropriate mood/affect, cooperative - Neurologic Neurologic: moves all extremities Results - Labs CBC & Chem 7: 10/28/17 06:22 10/28/17 06:22 Labs: Laboratory Last Values WBC 3.9 K/mm3 (4.5-11.0) L 10/28/17 06:22 RBC 2.68 M/mm3 (3.65-5.03) L 10/28/17 06:22 Hgb 8.5 gm/dl (11.8-15.2) L 10/28/17 06:22 Hct 25.4 % (35.5-45.6) L 10/28/17 06:22 MCV 95 fl (84-94) H 10/28/17 06:22 MCH 32 pg (28-32) 10/28/17 06:22 MCHC 33 % (32-34) 10/28/17 06:22 RDW 14.6 % (13.2-15.2) 10/28/17 06:22 Plt Count 178 K/mm3 (140-440) 10/28/17 06:22 Lymph % (Auto) 14.6 % (13.4-35.0) 10/26/17 19:54 [place] % (Auto) Gas Station Clerk 10/28/17 06:22 Eos % (Auto) 0.2 % (0.0-4.3) 10/26/17 19:54 Baso % (Auto) 0.6 % (0.0-1.8) 10/26/17 19:54 Lymph # 1.2 K/mm3 (1.2-5.4) 10/26/17 19:54 [place] # 1.0 K/mm3 (0.0-0.8) H 10/26/17 19:54 Eos # 0.0 K/mm3 (0.0-0.4) 10/26/17 19:54 Baso # 0.1 K/mm3 (0.0-0.1) 10/26/17 19:54 Add Manual Diff Complete 10/28/17 06:22 Total Counted 100 10/28/17 06:22 Seg Neutrophils % 72.9 % (40.0-70.0) H 10/26/17 19:54 Seg Neuts % (Manual) 63.0 % (40.0-70.0) 10/28/17 06:22 Band Neutrophils % 0 % 10/28/17 06:22 Lymphocytes % (Manual) 18.0 % (13.4-35.0) 10/28/17 06:22 Reactive Lymphs % (Man) 0 % 10/28/17 06:22 Monocytes % (Manual) 11.0 % (0.0-7.3) H 10/28/17 06:22 Eosinophils % (Manual) 8.0 % (0.0-4.3) H 10/28/17 06:22 Basophils % (Manual) 0 % (0.0-1.8) 10/28/17 06:22 Metamyelocytes % 0 % 10/28/17 06:22 Myelocytes % 0 % 10/28/17 06:22 Promyelocytes % 0 % 10/28/17 06:22 Blast Cells % 0 % 10/28/17 06:22 Nucleated RBC % Not Reportable 10/28/17 06:22 Seg Neutrophils # 6.2 K/mm3 (1.8-7.7) 10/26/17 19:54 Seg Neutrophils # Man 2.5 K/mm3 (1.8-7.7) 10/28/17 06:22 Band Neutrophils # 0.0 K/mm3 10/28/17 06:22 Lymphocytes # (Manual) 0.7 K/mm3 (1.2-5.4) L 10/28/17 06:22 Abs React Lymphs (Man) 0.0 K/mm3 10/28/17 06:22 Monocytes # (Manual) 0.4 K/mm3 (0.0-0.8) 10/28/17 06:22 Eosinophils # (Manual) 0.3 K/mm3 (0.0-0.4) 10/28/17 06:22 Basophils # (Manual) 0.0 K/mm3 (0.0-0.1) 10/28/17 06:22 Metamyelocytes # 0.0 K/mm3 10/28/17 06:22 Myelocytes # 0.0 K/mm3 10/28/17 06:22 Promyelocytes # 0.0 K/mm3 10/28/17 06:22 Blast Cells # 0.0 K/mm3 10/28/17 06:22 WBC Morphology Not Reportable 10/28/17 06:22 Hypersegmented Neuts Not Reportable 10/28/17 06:22 Hyposegmented Neuts Not Reportable 10/28/17 06:22 Hypogranular Neuts Not Reportable 10/28/17 06:22 Smudge Cells Not Reportable 10/28/17 06:22 Toxic Granulation Not Reportable 10/28/17 06:22 Toxic Vacuolation Not Reportable 10/28/17 06:22 Dohle Bodies Not Reportable 10/28/17 06:22 Pelger-Huet Anomaly Not Reportable 10/28/17 06:22 Esther Rods Not Reportable 10/28/17 06:22 Platelet Estimate Consistent w auto 10/28/17 06:22 Clumped Platelets Not Reportable 10/28/17 06:22 Plt Clumps, EDTA Not Reportable 10/28/17 06:22 Large Platelets Not Reportable 10/28/17 06:22 Giant Platelets Not Reportable 10/28/17 06:22 Platelet Satelliting Not Reportable 10/28/17 06:22 Plt Morphology Comment Not Reportable 10/28/17 06:22 RBC Morphology Normal 10/28/17 06:22 Dimorphic RBCs Not Reportable 10/28/17 06:22 Polychromasia Not Reportable 10/28/17 06:22 Hypochromasia Not Reportable 10/28/17 06:22 Poikilocytosis Not Reportable 10/28/17 06:22 Anisocytosis Not Reportable 10/28/17 06:22 Microcytosis Not Reportable 10/28/17 06:22 Macrocytosis Not Reportable 10/28/17 06:22 Spherocytes Not Reportable 10/28/17 06:22 Pappenheimer Bodies Not Reportable 10/28/17 06:22 Sickle Cells Not Reportable 10/28/17 06:22 Target Cells Few 10/28/17 06:22 Tear Drop Cells Not Reportable 10/28/17 06:22 Ovalocytes Not Reportable 10/28/17 06:22 Helmet Cells Not Reportable 10/28/17 06:22 [place] Bodies Not Reportable 10/28/17 06:22 [place] Rings Not Reportable 10/28/17 06:22 [place] Cells Not Reportable 10/28/17 06:22 Bite Cells Not Reportable 10/28/17 06:22 Crenated Cell Not Reportable 10/28/17 06:22 Elliptocytes Not Reportable 10/28/17 06:22 Acanthocytes (Spur) Not Reportable 10/28/17 06:22 Rouleaux Not Reportable 10/28/17 06:22 Hemoglobin C Crystals Not Reportable 10/28/17 06:22 Schistocytes Not Reportable 10/28/17 06:22 Malaria parasites Not Reportable 10/28/17 06:22 Bubba Bodies Not Reportable 10/28/17 06:22 Hem Pathologist Commnt No 10/28/17 06:22 PT 13.3 Sec. (12.2-14.9) 10/26/17 19:54 INR 0.96 (0.87-1.13) 10/26/17 19:54 APTT 23.6 Sec. (24.2-36.6) L 10/26/17 19:54 Sodium 142 mmol/L (137-145) 10/28/17 06:22 Potassium 4.1 mmol/L (3.6-5.0) 10/28/17 06:22 Chloride 107.1 mmol/L (98-107) H 10/28/17 06:22 Carbon Dioxide 23 mmol/L (22-30) 10/28/17 06:22 Anion Gap 16 mmol/L 10/28/17 06:22 BUN 14 mg/dL (9-20) 10/28/17 06:22 Creatinine 0.7 mg/dL (0.8-1.5) L 10/28/17 06:22 Estimated GFR > 60 ml/min 10/28/17 06:22 BUN/Creatinine Ratio 20 % 10/28/17 06:22 Glucose 85 mg/dL (75-100) 10/28/17 06:22 Calcium 8.4 mg/dL (8.4-10.2) 10/28/17 06:22 Magnesium 1.90 mg/dL (1.7-2.3) 10/28/17 06:22 Total Bilirubin 0.30 mg/dL (0.1-1.2) 10/26/17 19:54 AST 64 units/L (5-40) H 10/26/17 19:54 ALT 47 units/L (7-56) 10/26/17 19:54 Alkaline Phosphatase 43 units/L (35-129) 10/26/17 19:54 Troponin T < 0.010 ng/mL (0.00-0.029) 10/26/17 21:40 Total Protein 5.8 g/dL (6.3-8.2) L 10/26/17 19:54 Albumin 3.2 g/dL (3.9-5) L 10/26/17 19:54 Albumin/Globulin Ratio 1.2 % 10/26/17 19:54 Lipase 20 units/L (13-60) 10/26/17 19:54 Blood Type O POSITIVE 10/26/17 19:54 Antibody Screen Negative 10/26/17 19:54
[2017-10-28] MEDS ORDERED: WATER FOR IRRIG STERILE ONE (11:06)
[2017-10-28] MEDS ORDERED: WATER FOR IRRIG STERILE IR ONE (11:06)
[2017-10-28] MEDS ORDERED: NACL 0.9% 1000 ML 1,000 ML ONE (11:19)
[2017-10-28] MEDS ORDERED: NACL 0.9% 1000 ML 1,000 ML IV SCH (12:00)
--- NOTE | 2017-10-28 12:01 | Anesthesia Consultation ---
Anesthesia Consult and Med Hx Date of service: 10/28/17 - Airway Anesthetic Teeth Evaluation: Poor (several missing teeth) ROM Head & Neck: Adequate Mental/Hyoid Distance: Adequate Mallampati Class: Class II Intubation Access Assessment: Probably Good - Pulmonary Exam CTA: Yes - Cardiac Exam Cardiac Exam: RRR - Pre-Operative Health Status ASA Pre-Surgery Classification: ASA3 Proposed Anesthetic Plan: MAC - Pulmonary Hx Smoking: Yes Hx Asthma: No COPD: No Hx Pneumonia: No Hx Sleep Apnea: No (He indicates that he does snore) - Cardiovascular System Hx Hypertension: Yes - Gastrointestinal Hx Gastroesophageal Reflux Disease: Yes - Endocrine Hx End Stage Renal Disease: No - Hematic Hx Anemia: Yes - Other Systems Hx Alcohol Use: Yes
--- NOTE | 2017-10-28 12:02 | Anesthesia Day of Surgery ---
Anesthesia Day of Surgery - Day of Surgery Patient Examined: Yes Patient H&P Reviewed: Yes Patient is NPO: Yes
[2017-10-28] MEDS ORDERED: VERSED ONE (12:11)
[2017-10-28] MEDS ORDERED: DIPRIVAN 10 MG/ML IV ONE (12:11)
[2017-10-28] MEDS ORDERED: NORMODYNE IV ONE (12:16)
[2017-10-28] MEDS ORDERED: XYLOCAINE 1% 20 mL ONE (12:25)
[2017-10-28] MEDS ORDERED: XYLOCAINE 2% INFILTRATI ONE (12:26)
--- NOTE | 2017-10-28 13:08 | Post Operative Note ---
Pre-op diagnosis: GI bleed Post-op diagnosis: other (Erosive duodenitis, small DU, gastritis) Findings: 1. Mild antral gastritis with streaky erythema. 2. Duodenal edema and erythema and erosions, with small ulcer in 2nd portion of duodenum. No stigmata of bleeding. 3. Normal esophagus with no varices. Procedure: EGD Anesthesia: MAC Surgeon: PREMA IRENE Estimated blood loss: none Pathology: none Condition: stable Disposition: floor (Colonoscopy tomorrow)
--- NOTE | 2017-10-28 14:53 | Operative Report ---
PROCEDURE: Upper endoscopy. PREOPERATIVE DIAGNOSES: Coffee-ground emesis and melena. POSTOPERATIVE DIAGNOSES: Erosive gastritis, erosive duodenitis with duodenal ulcer and no stigmata of bleeding. SEDATION: MAC by Anesthesia. HISTORY: The patient is a 52-year-old man who has a history of alcohol abuse. He presented to the hospital with coffee ground emesis as well as a history of melena. He dropped his hemoglobin from a normal of 15 in the past down to 9.5 and now today down to 8.5. Procedure, indications, risks, and benefits were explained and consent was obtained. The patient was placed in left lateral decubitus position and sedated. Ernie'si video upper endoscope was passed through the mouth and oropharynx into the descending duodenum. Scope was then gradually withdrawn with close inspection of the mucosa. FINDINGS: 1. Normal appearing esophagus with no evidence of varices. 2. Mild gastritis with streaky erythema and possibly a few small erosions noted in the antrum. 3. Otherwise normal stomach. 4. Normal-appearing duodenal bulb. 5. Duodenitis with edema and erythema in a patchy distribution in the second portion of the duodenum with erosions noted. A small ulcer was also noted. No stigmata of bleeding and no fresh or old blood were noted. The patient tolerated the procedure well without immediate complications. IMPRESSION: 1. Mild gastritis. 2. Duodenitis with ulcer and erosions -- possible source of blood loss. 3. Otherwise, normal endoscopy. PLAN: 1. Continue proton pump inhibitors. 2. Proceed with colonoscopy tomorrow given significant drop in hemoglobin. 3. Check H. pylori antibody. JOB# [id number] HRC/NTS
[2017-10-28] MEDS ORDERED: GOLYTELY PO ONE (17:00)
[2017-10-28] MEDS: COREG PO SCH (21:55)
[2017-10-29] MEDS: SODIUM CHLORIDE FLUSH SYRINGE 10 ML IV SCH ×2 (10:30→22:04)
[2017-10-29] MEDS: PROTONIX 80 MG in NACL 0.9% 100 ML IV SCH (14:00)
[2017-10-29] MEDS: NACL 0.9% 1000 ML 1,000 ML IV SCH ×2 (15:25→18:09)
[2017-10-29] MEDS ORDERED: DIPRIVAN 10 MG/ML IV ONE ×2 (15:36)
[2017-10-29] MEDS ORDERED: NACL 0.9% 1000 ML 1,000 ML ONE (16:01)
--- NOTE | 2017-10-29 16:57 | Post Operative Note ---
Pre-op diagnosis: anemia Post-op diagnosis: same Findings: Colonoscopy; polyp x 6 (transverse x 4, sigmoid x 2) 5-14 cm, hot snare polypectomy - internal hemorrhoids - negative other Procedure: Colonoscopy Anesthesia: MAC Surgeon: JILL ROSE Estimated blood loss: none Pathology: list Specimen disposition: to lab Condition: stable Disposition: floor
--- NOTE | 2017-10-29 17:15 | Operative Report ---
PROCEDURE: Colonoscopy with hot snare polypectomy. INDICATION: 1. Anemia. 2. GI bleed. MEDICATIONS: Propofol per CHROMOSOMAL DISORDERS COUNSELOR. COMPLICATIONS: None. DESCRIPTION OF PROCEDURE: The patient brought to procedure suite. The patient had the procedure discussed with him at length. All risks, complications, and benefits discussed after which the patient signed for the procedure performed. The patient was placed in left lateral decubitus position. Rectal exam performed prior to insertion of the scope. After adequate sedation medication as above, scope inserted into the rectum and brought to level of cecum. Ileocecal valve and appendiceal orifice, cecal strap were adequately visualized. Colonoscope was then slowly removed and the mucosa of colon completely and adequately visualized. Prep quality for this procedure was fair. The patient's vital signs from the upper pole for this procedure was fair to poor. The patient's vital signs remained stable throughout the procedure. FINDINGS: There were noted to be six sessile small, slightly pedunculated polyps noted throughout the colon, four were noted in the transverse colon, two in the sigmoid colon. The polyps ranged in size from 5-14 mm. A snare polypectomy was applied with removal and retrieval of all polyps and sent to pathology. No other mass lesions or polyps were noted. No significant diverticulosis was noted. Retroflexion view performed in the rectum showed medium to large internal hemorrhoids. The patient tolerated the procedure well. No complications noted during the procedure. IMPRESSION: 1. Polyp x 6 hot snare polypectomy applied. 2. Internal hemorrhoids. 3. Otherwise, normal colonoscopy. RECOMMENDATIONS: 1. Follow up biopsy results. 2. Avoid NSAIDs and aspirin for 7 days. 3. Follow H and H and transfuse as needed. 4. If H and H stable in a.m., okay to discharge from GI standpoint. 5. Repeat colonoscopy outpatient in 2 years. JOB# [id number] CAB/NTS
[2017-10-29] MEDS: COREG PO SCH ×2 (18:00→22:02)
[2017-10-29] MEDS: ZESTRIL PO SCH (18:00)
[2017-10-29] MEDS: NORVASC PO SCH (18:00)
[2017-10-29] MEDS: IMDUR PO SCH (18:00)
--- NOTE | 2017-10-29 20:25 | Progress Note ---
Assessment and Plan Assessment and plan: --Acute Upper GI bleeding: No new episodes s/p EGD; mild antral gastritis/erosive duodenitis/small duodenal ulcer Esophagus normal no varices Scheduled for colonoscopy today, GI following --Acute blood loss anemia; Mild drop in H&H, closely monitor --Hypertension, well controlled Continue current antihypertensives and PRN medications --History of chronic alcohol abuse; Counseling done advised to quit alcohol intake Closely monitor for any withdrawal symptoms, Patient is on CIWA protocol --Ongoing Tobacco abuse Smoking cessation counseling, nicotine patch as needed --DVT prophylaxis; SCDs Disposition ; follow colonoscopy , possible discharge home tomorrow if stable History Interval history: Patient seen and examined medical records reviewed Schedule for colonoscopy today Patient feels hungry and wants food, no new episodes of hematemesis Alert awake oriented 3, Vital signs reviewed Hospitalist Physical - Constitutional Vitals: Temp Pulse Resp BP Pulse Ox 97.4 F L 62 20 160/100 98 10/29/17 17:52 10/29/17 18:00 10/29/17 17:52 10/29/17 18:00 10/29/17 17:52 General appearance: Present: no acute distress, well-nourished, other (Thin) - EENT Eyes: Present: PERRL, EOM intact - Neck Neck: Present: supple, normal ROM - Respiratory Respiratory effort: normal Respiratory: bilateral: diminished, negative: rales, rhonchi, wheezing - Cardiovascular Rhythm: regular Heart Sounds: Present: S1 & S2 - Extremities Extremities: no ischemia, No edema - Abdominal General gastrointestinal: soft, non-tender, non-distended, normal bowel sounds - Integumentary Integumentary: Present: clear, warm - Psychiatric Psychiatric: appropriate mood/affect, cooperative - Neurologic Neurologic: CNII-XII intact, moves all extremities Results - Labs CBC & Chem 7: 10/28/17 06:22 10/28/17 06:22 Labs: Laboratory Last Values WBC 3.9 K/mm3 (4.5-11.0) L 10/28/17 06:22 RBC 2.68 M/mm3 (3.65-5.03) L 10/28/17 06:22 Hgb 8.5 gm/dl (11.8-15.2) L 10/28/17 06:22 Hct 25.4 % (35.5-45.6) L 10/28/17 06:22 MCV 95 fl (84-94) H 10/28/17 06:22 MCH 32 pg (28-32) 10/28/17 06:22 MCHC 33 % (32-34) 10/28/17 06:22 RDW 14.6 % (13.2-15.2) 10/28/17 06:22 Plt Count 178 K/mm3 (140-440) 10/28/17 06:22 Lymph % (Auto) 14.6 % (13.4-35.0) 10/26/17 19:54 [place] % (Auto) Vendor Relationship Manager 10/28/17 06:22 Eos % (Auto) 0.2 % (0.0-4.3) 10/26/17 19:54 Baso % (Auto) 0.6 % (0.0-1.8) 10/26/17 19:54 Lymph # 1.2 K/mm3 (1.2-5.4) 10/26/17 19:54 [place] # 1.0 K/mm3 (0.0-0.8) H 10/26/17 19:54 Eos # 0.0 K/mm3 (0.0-0.4) 10/26/17 19:54 Baso # 0.1 K/mm3 (0.0-0.1) 10/26/17 19:54 Add Manual Diff Complete 10/28/17 06:22 Total Counted 100 10/28/17 06:22 Seg Neutrophils % 72.9 % (40.0-70.0) H 10/26/17 19:54 Seg Neuts % (Manual) 63.0 % (40.0-70.0) 10/28/17 06:22 Band Neutrophils % 0 % 10/28/17 06:22 Lymphocytes % (Manual) 18.0 % (13.4-35.0) 10/28/17 06:22 Reactive Lymphs % (Man) 0 % 10/28/17 06:22 Monocytes % (Manual) 11.0 % (0.0-7.3) H 10/28/17 06:22 Eosinophils % (Manual) 8.0 % (0.0-4.3) H 10/28/17 06:22 Basophils % (Manual) 0 % (0.0-1.8) 10/28/17 06:22 Metamyelocytes % 0 % 10/28/17 06:22 Myelocytes % 0 % 10/28/17 06:22 Promyelocytes % 0 % 10/28/17 06:22 Blast Cells % 0 % 10/28/17 06:22 Nucleated RBC % Not Reportable 10/28/17 06:22 Seg Neutrophils # 6.2 K/mm3 (1.8-7.7) 10/26/17 19:54 Seg Neutrophils # Man 2.5 K/mm3 (1.8-7.7) 10/28/17 06:22 Band Neutrophils # 0.0 K/mm3 10/28/17 06:22 Lymphocytes # (Manual) 0.7 K/mm3 (1.2-5.4) L 10/28/17 06:22 Abs React Lymphs (Man) 0.0 K/mm3 10/28/17 06:22 Monocytes # (Manual) 0.4 K/mm3 (0.0-0.8) 10/28/17 06:22 Eosinophils # (Manual) 0.3 K/mm3 (0.0-0.4) 10/28/17 06:22 Basophils # (Manual) 0.0 K/mm3 (0.0-0.1) 10/28/17 06:22 Metamyelocytes # 0.0 K/mm3 10/28/17 06:22 Myelocytes # 0.0 K/mm3 10/28/17 06:22 Promyelocytes # 0.0 K/mm3 10/28/17 06:22 Blast Cells # 0.0 K/mm3 10/28/17 06:22 WBC Morphology Not Reportable 10/28/17 06:22 Hypersegmented Neuts Not Reportable 10/28/17 06:22 Hyposegmented Neuts Not Reportable 10/28/17 06:22 Hypogranular Neuts Not Reportable 10/28/17 06:22 Smudge Cells Not Reportable 10/28/17 06:22 Toxic Granulation Not Reportable 10/28/17 06:22 Toxic Vacuolation Not Reportable 10/28/17 06:22 Dohle Bodies Not Reportable 10/28/17 06:22 Pelger-Huet Anomaly Not Reportable 10/28/17 06:22 Esther Rods Not Reportable 10/28/17 06:22 Platelet Estimate Consistent w auto 10/28/17 06:22 Clumped Platelets Not Reportable 10/28/17 06:22 Plt Clumps, EDTA Not Reportable 10/28/17 06:22 Large Platelets Not Reportable 10/28/17 06:22 Giant Platelets Not Reportable 10/28/17 06:22 Platelet Satelliting Not Reportable 10/28/17 06:22 Plt Morphology Comment Not Reportable 10/28/17 06:22 RBC Morphology Normal 10/28/17 06:22 Dimorphic RBCs Not Reportable 10/28/17 06:22 Polychromasia Not Reportable 10/28/17 06:22 Hypochromasia Not Reportable 10/28/17 06:22 Poikilocytosis Not Reportable 10/28/17 06:22 Anisocytosis Not Reportable 10/28/17 06:22 Microcytosis Not Reportable 10/28/17 06:22 Macrocytosis Not Reportable 10/28/17 06:22 Spherocytes Not Reportable 10/28/17 06:22 Pappenheimer Bodies Not Reportable 10/28/17 06:22 Sickle Cells Not Reportable 10/28/17 06:22 Target Cells Few 10/28/17 06:22 Tear Drop Cells Not Reportable 10/28/17 06:22 Ovalocytes Not Reportable 10/28/17 06:22 Helmet Cells Not Reportable 10/28/17 06:22 [place] Bodies Not Reportable 10/28/17 06:22 [place] Rings Not Reportable 10/28/17 06:22 [place] Cells Not Reportable 10/28/17 06:22 Bite Cells Not Reportable 10/28/17 06:22 Crenated Cell Not Reportable 10/28/17 06:22 Elliptocytes Not Reportable 10/28/17 06:22 Acanthocytes (Spur) Not Reportable 10/28/17 06:22 Rouleaux Not Reportable 10/28/17 06:22 Hemoglobin C Crystals Not Reportable 10/28/17 06:22 Schistocytes Not Reportable 10/28/17 06:22 Malaria parasites Not Reportable 10/28/17 06:22 Bubba Bodies Not Reportable 10/28/17 06:22 Hem Pathologist Commnt No 10/28/17 06:22 PT 13.3 Sec. (12.2-14.9) 10/26/17 19:54 INR 0.96 (0.87-1.13) 10/26/17 19:54 APTT 23.6 Sec. (24.2-36.6) L 10/26/17 19:54 Sodium 142 mmol/L (137-145) 10/28/17 06:22 Potassium 4.1 mmol/L (3.6-5.0) 10/28/17 06:22 Chloride 107.1 mmol/L (98-107) H 10/28/17 06:22 Carbon Dioxide 23 mmol/L (22-30) 10/28/17 06:22 Anion Gap 16 mmol/L 10/28/17 06:22 BUN 14 mg/dL (9-20) 10/28/17 06:22 Creatinine 0.7 mg/dL (0.8-1.5) L 10/28/17 06:22 Estimated GFR > 60 ml/min 10/28/17 06:22 BUN/Creatinine Ratio 20 % 10/28/17 06:22 Glucose 85 mg/dL (75-100) 10/28/17 06:22 Calcium 8.4 mg/dL (8.4-10.2) 10/28/17 06:22 Magnesium 1.90 mg/dL (1.7-2.3) 10/28/17 06:22 Total Bilirubin 0.30 mg/dL (0.1-1.2) 10/26/17 19:54 AST 64 units/L (5-40) H 10/26/17 19:54 ALT 47 units/L (7-56) 10/26/17 19:54 Alkaline Phosphatase 43 units/L (35-129) 10/26/17 19:54 Troponin T < 0.010 ng/mL (0.00-0.029) 10/26/17 21:40 Total Protein 5.8 g/dL (6.3-8.2) L 10/26/17 19:54 Albumin 3.2 g/dL (3.9-5) L 10/26/17 19:54 Albumin/Globulin Ratio 1.2 % 10/26/17 19:54 Lipase 20 units/L (13-60) 10/26/17 19:54 Blood Type O POSITIVE 10/26/17 19:54 Antibody Screen Negative 10/26/17 19:54
[2017-10-30] MEDS: PROTONIX 80 MG in NACL 0.9% 100 ML IV SCH (05:10)
[2017-10-30 06:01] LABS: Basophils % (Auto) 0.6 % (0.0-1.8); Eosinophils # (Auto) 0.1 K/mm3 (0.0-0.4); Eosinophils % (Auto) 2.9 % (0.0-4.3); Hematocrit 23.4 % (35.5-45.6); Hemoglobin 7.9 gm/dl (11.8-15.2); Lymphocytes # (Auto) 1.1 K/mm3 (1.2-5.4); Mean Corpuscular HGB Conc 34 % (32-34); Mean Corpuscular Hemoglobin 32 pg (28-32); Mean Corpuscular Volume 95 fl (84-94); Monocytes # (Auto) 0.7 K/mm3 (0.0-0.8); Monocytes % (Auto) 15.4 % (0.0-7.3); Platelet Count 176 K/mm3 (140-440); Red Blood Count 2.45 M/mm3 (3.65-5.03); Red Cell Distribution Width 13.7 % (13.2-15.2)
[2017-10-30 06:16] LABS: BUN/Creatinine Ratio 8; Blood Urea Nitrogen 5 mg/dL (9-20); Calcium 8.2 mg/dL (8.4-10.2); Hemolysis Index 7
--- NOTE | 2017-10-30 09:36 | Discharge Summary ---
Providers - Providers Date of Admission: 10/27/17 02:33 Date of discharge: 10/30/17 Attending physician: GILA ARREGUIN 10/26/17 22:47 Consult to Physician [CONS] Urgent Comment: Dr. Clayton spoke with Dr. Garcia @ [phone] Consulting Provider: PREMA GARCIA Physician Instructions: Reason For Exam: GI bleed Primary care physician: GROUNDS CREW SUPERVISOR Hospitalization Reason for admission: gi bleed Condition: Fair Procedures: EGD, Colonoscopy Hospital course: Mr. Muro is a 52-year-old man who has been homeless for over 15 years. He drinks 8 12 ounce beers per day. 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 He presented to the emergency room 10/26/17 and had Hemoccult positive dark stool noted. He was admitted for further evaluation. He has been losing weight recently, but he states that this is due to inability to get food. He states he was cut off from his food stamps recently because he was not able to make it to the office. He denies early satiety. He has no known prior history of liver disease. He has no known history of prior peptic ulcer disease. He denies GERD symptoms or dysphagia. He denies aspirin or nonsteroidal usage. Patient was seen by GI consultation. He underwent an EGD which revealed: 1. Mild antral gastritis with streaky erythema. 2. Duodenal edema and erythema and erosions, with small ulcer in 2nd portion of duodenum. No stigmata of bleeding. 3. Normal esophagus with no varices. The patient also underwent colonoscopy which revealed polyp x 6 (transverse x 4 , sigmoid x 2) 5-14 cm, hot snare polypectomy - internal hemorrhoids - negative otherwise GI recommended - avoid nsaids/asa x 7 days. H&H remaining stable and patient will be discharged home. Disposition: - TO HOME OR SELFCARE Time spent for discharge: 32 - Discharge Diagnoses (1) Upper GI bleed Status: Acute Core Measure Documentation - Palliative Care Palliative Care/ Comfort Measures: Not Applicable - Core Measures Any of the following diagnoses?: none Exam - Constitutional Vitals: Temp Pulse Resp BP Pulse Ox 98.5 F 61 18 103/70 100 10/30/17 05:29 10/30/17 05:29 10/30/17 05:29 10/30/17 05:29 10/30/17 05:29 General appearance: Present: no acute distress, well-nourished - EENT Eyes: Present: PERRL ENT: hearing intact, clear oral mucosa - Neck Neck: Present: supple, normal ROM - Respiratory Respiratory effort: normal Respiratory: bilateral: CTA - Cardiovascular Heart Sounds: Present: S1 & S2. Absent: rub, click - Extremities Extremities: pulses symmetrical, No edema Peripheral Pulses: within normal limits - Abdominal General gastrointestinal: Present: soft, non-tender, non-distended, normal bowel sounds Male genitourinary: Present: normal - Integumentary Integumentary: Present: clear, warm, dry - Musculoskeletal Musculoskeletal: gait normal, strength equal bilaterally - Psychiatric Psychiatric: appropriate mood/affect, intact judgment & insight - Neurologic Neurologic: CNII-XII intact, moves all extremities Plan Activity: no restrictions Weight Bearing Status: Full Weight Bearing Diet: regular Additional Instructions: - avoid nsaids/asa x 7 days Follow up with: PRIMARY CAREMD [Primary Care Provider] - 3-5 Days JILL ROSE MD [Staff Physician] - 7 Days Prescriptions: amLODIPine [Norvasc] 10 mg PO QDAY #30 tablet AtorvaSTATin [Lipitor] 40 mg PO QHS #30 tablet Carvedilol [Coreg] 12.5 mg PO BID #60 tablet ISOSORBIDE MONOnitrate [Imdur ER] 30 mg PO QDAY #30 tablet Lisinopril [Zestril TAB] 20 mg PO QDAY #30 tablet Pantoprazole [Protonix TAB] 40 mg PO BID #60 tablet
[2017-10-30] MEDS: IMDUR PO SCH (09:42)
[2017-10-30] MEDS: COREG PO SCH (09:42)
[2017-10-30] MEDS: NORVASC PO SCH (09:43)
[2017-10-30] MEDS: SODIUM CHLORIDE FLUSH SYRINGE 10 ML IV SCH (09:44)
[2017-10-30] MEDS: ZESTRIL PO SCH (09:44)
[2017-10-30 09:45] VITALS: BP 108/65
--- NOTE | 2017-10-30 13:36 | Gastroenterology Progress Note ---
Assessment and Plan GI: no further signs bleeding - ok to d/c, call if needed Subjective Date of service: 10/30/17 Interval history: - no signs bleeding overnight Objective - Constitutional Vitals: Temp Pulse Resp BP Pulse Ox 98.5 F 61 18 108/65 100 10/30/17 05:29 10/30/17 05:29 10/30/17 05:29 10/30/17 09:43 10/30/17 05:29 General appearance: no acute distress - EENT Eyes: PERRL - Respiratory Respiratory: bilateral: CTA - Cardiovascular Rhythm: regular Heart Sounds: Present: S1 & S2 - Gastrointestinal General gastrointestinal: Present: soft, non-tender, non-distended - Labs CBC & Chem 7: 10/30/17 04:45 10/30/17 04:45 Labs: Laboratory Results - last 24 hr 10/30/17 10/30/17 04:45 04:45 WBC 4.7 RBC 2.45 L Hgb 7.9 L Hct 23.4 L MCV 95 H MCH 32 MCHC 34 RDW 13.7 Plt Count 176 Lymph % (Auto) 24.0 Ford % (Auto) 15.4 H Eos % (Auto) 2.9 Baso % (Auto) 0.6 Lymph # 1.1 L [place] # 0.7 Eos # 0.1 Baso # 0.0 Seg Neutrophils % 57.1 Seg Neutrophils # 2.7 Sodium 136 L Potassium 3.8 Chloride 101.6 Carbon Dioxide 22 Anion Gap 16 BUN 5 L Creatinine 0.6 L Estimated GFR > 60 BUN/Creatinine Ratio 8 Glucose 106 H Calcium 8.2 L
[2017-10-30] MEDS ORDERED: PROTONIX PO SCH (22:00)
== END 2017-10-30 12:57 | disposition home or self-care (01) | DRG 378 ==
LOC: ED 19:19 → 3A 10-27 02:33
PROVIDERS: ADMIT Internal Medicine; ATTEND Hospitalist
PROC: 0DJ08ZZ Inspection of Upper Intestinal Tract, Via Natural or Artificial Opening Endoscopic (ICD-10-PCS; 2017-10-28)
PROC: 0DBN8ZZ Excision of Sigmoid Colon, Via Natural or Artificial Opening Endoscopic (ICD-10-PCS; principal; 2017-10-29)
PROC: 0DBL8ZZ Excision of Transverse Colon, Via Natural or Artificial Opening Endoscopic (ICD-10-PCS; 2017-10-29)
DX: K29.81 Duodenitis with bleeding (principal); D62 Acute posthemorrhagic anemia; K29.71 Gastritis, unspecified, with bleeding; K26.4 Chronic or unspecified duodenal ulcer with hemorrhage; I10 Essential (primary) hypertension; F17.290 Nicotine dependence, other tobacco product, uncomplicated; R07.9 Chest pain, unspecified; F10.10 Alcohol abuse, uncomplicated; Y90.0 Blood alcohol level of less than 20 mg/100 ml; K21.9 Gastro-esophageal reflux disease without esophagitis; K64.8 Other hemorrhoids; K63.5 Polyp of colon; Z71.41 Alcohol abuse counseling and surveillance of alcoholic; Z79.82 Long term (current) use of aspirin; Z79.899 Other long term (current) drug therapy; Z71.6 Tobacco abuse counseling; Z59.0 Homelessness
CPT/HCPCS: 36415; 71045; 80048; 80053; 82270; 82271; 83690; 83735; 84484; 85007; 85014; 85018; 85025; 85610; 85730; 86850; 86900; 86901; 88305; 93005; 93010; A9270-GY; C9113; J2250; J2405; J2704; J7030

== ENCOUNTER 2017-12-06 11:51 | Inpatient (IN) | payer SELFPAY ==
[2017-12-06 12:26] LABS: Mean Corpuscular HGB Conc 33 % (32-34); Mean Corpuscular Hemoglobin 31 pg (28-32); Mean Corpuscular Volume 92 fl (84-94); Platelet Count 366 K/mm3 (140-440); Red Blood Count 4.24 M/mm3 (3.65-5.03); Red Cell Distribution Width 14.6 % (13.2-15.2)
[2017-12-06 12:48] LABS: Alanine Aminotransferase 35 units/L (7-56); Albumin 4.1 g/dL (3.9-5); BUN/Creatinine Ratio 18; Blood Urea Nitrogen 9 mg/dL (9-20); Hemolysis Index 4
[2017-12-06 13:12] LABS: Basophils % (Manual) 0 % (0.0-1.8); Total Cells Counted 100
[2017-12-06 13:13] LABS: Anisocytosis Few; Poikilocytosis 1+
[2017-12-06 14:07] LABS: Bilirubin,Urine NEG (Negative); Blood,Urine NEG (Negative); Color,Urine Straw (Yellow); Protein,Urine <15 mg/dL mg/dL (Negative); RBC,Urine < 1.0 /HPF (0.0-6.0); Urobilinogen,Urine < 2.0 mg/dL (<2.0); WBC,Urine < 1.0 /HPF (0.0-6.0)
[2017-12-06 14:17] LABS: Amphetamine Screen,Urine PRESUMPTIVE NEGATIVE; Benzodiazepines Screen,Urine PRESUMPTIVE NEGATIVE; Cannabinoid Screen,Urine PRESUMPTIVE NEGATIVE; Cocaine Screen,Urine PRESUMPTIVE NEGATIVE; Methadone Screen,Urine PRESUMPTIVE NEGATIVE; Opiate Screen,Urine PRESUMPTIVE NEGATIVE
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
[2017-12-06] MEDS ORDERED: ZOFRAN IV ONE (20:35)
[2017-12-06] MEDS ORDERED: DILAUDID IV ONE (20:35)
[2017-12-06] MEDS ORDERED: VITAMIN B-1 100 MG, FOLVITE 1 MG, INFUVITE 10 ML in NACL 0.9% 1000 ML 1,000 ML IV ONE (20:35)
[2017-12-06] MEDS ORDERED: NACL 0.9% 50 ML ONE (20:45)
--- NOTE | 2017-12-06 21:21 | Cat Scan Report ---
FINAL REPORT PROCEDURE: CT HEAD/BRAIN WO CON TECHNIQUE: Computerized tomography of the head was performed without contrast material. HISTORY: Syncope COMPARISON: No prior studies are available for comparison. FINDINGS: Skull and scalp: Normal. Paranasal sinuses: Normal. Ventricles and subarachnoid spaces: Mild dilatation. Cerebrum: Atrophy with periventricular and deep white matter diminished densities consistent with microangiopathy. Lacunar infarcts of the basal ganglia.. Cerebellum and brainstem: Chronic schema changes of the maya. Mild atrophy of the cerebellum. Vasculature: Atherosclerotic calcifications.. Comments: None. IMPRESSION: Involutional change with atrophy and microangiopathy. No hemorrhage
--- NOTE | 2017-12-06 21:40 | Cat Scan Report ---
FINAL REPORT PROCEDURE: CT CERVICAL SPINE WO CON TECHNIQUE: Computerized tomography of the cervical spine was performed from the skull base to T1 without contrast material. HISTORY: Neck pain COMPARISON: No prior studies are available for comparison. FINDINGS: No acute fracture. Alignment is satisfactory. Odontoid process is intact.. C1-2: No significant abnormality. C2-3: No significant abnormality. C3-4: No significant abnormality. C4-5: Disc bulge with mild spurring. C5-6: Mild spurring. No disc herniation. No canal stenosis. C6-7: Disc space narrowing with endplate change. Disc bulge and spurring flattening the thecal sac. Uncovertebral spurring with bilateral foraminal narrowing. C7-T1: No significant abnormality. Other: Atherosclerotic calcifications. IMPRESSION: No fracture. Mild degenerative change.
--- NOTE | 2017-12-06 21:43 | Cat Scan Report ---
FINAL REPORT PROCEDURE: CT THORACIC SPINE WO CON TECHNIQUE: Computerized axial tomography of the thoracic spine was performed from C7 - L1 without contrast material. HISTORY: Pain, syncope COMPARISON: No prior studies are available for comparison. FINDINGS: Alignment is satisfactory. No acute fracture. Mild degenerative change with spurring. No canal stenosis. Paraspinal soft tissues are intact. There are healed right rib fractures. IMPRESSION: Degenerative change. No fracture seen.
--- NOTE | 2017-12-06 22:08 | Cat Scan Report ---
FINAL REPORT PROCEDURE: CT ABDOMEN PELVIS W CON TECHNIQUE: Computerized axial tomography of the abdomen and pelvis was performed after the IV injection of iodinated nonionic contrast. HISTORY: Abdominal and Back pain COMPARISON: No prior studies are available for comparison. FINDINGS: Visualized lower thorax: No significant abnormality. Liver: Enlarged. No dominant mass or biliary dilatation. Spleen: Normal size and attenuation. Gallbladder and biliary system: Normal. Pancreas: Normal. Adrenals: Normal. Kidneys: Normal. No hydronephrosis GI tract: No dilated loops of large or small bowel. Appendix is not visualized. Lymph nodes and mesentery: Normal. Vasculature: Atherosclerotic calcifications. No aneurysm or dissection. Bladder: Normal. Reproductive organs: Enlarged prostate gland with calcifications. Peritoneum: No free fluid. Musculoskeletal structures: Degenerative change of the spine. Healed right lower rib fractures. Other: None. IMPRESSION: No solid organ injury. No acute fracture. Hepatomegaly.
[2017-12-06] MEDS ORDERED: APRESOLINE IV ONE (23:49)
[2017-12-07] MEDS ORDERED: ATIVAN ONE (00:12)
[2017-12-07] MEDS ORDERED: ATIVAN IV ONE ×2 (00:28→00:44)
[2017-12-07] MEDS ORDERED: ZESTRIL PO ONE (01:23)
[2017-12-07] MEDS ORDERED: ATIVAN IV PRN (03:16)
[2017-12-07 04:18] LABS: Alanine Aminotransferase 22 units/L (7-56); Albumin 3.5 g/dL (3.9-5); BUN/Creatinine Ratio 10; Blood Urea Nitrogen 7 mg/dL (9-20); Calcium 8.4 mg/dL (8.4-10.2); Hemolysis Index 0
[2017-12-07 04:34] LABS: Bilirubin,Direct < 0.2 mg/dL (0-0.2)
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
[2017-12-07] MEDS ORDERED: ZESTRIL PO SCH (07:43)
[2017-12-07] MEDS ORDERED: COREG ONE (08:48)
[2017-12-07] MEDS ORDERED: ZESTRIL ONE (08:48)
[2017-12-07] MEDS: COREG PO SCH ×2 (08:51→09:41)
[2017-12-07] MEDS: NORVASC PO SCH ×2 (08:51→09:41)
[2017-12-07] MEDS ORDERED: VITAMIN B-1 100 MG, FOLVITE 1 MG, INFUVITE 10 ML in NACL 0.9% 1000 ML 1,000 ML IV ONE (09:00)
[2017-12-07] MEDS: IMDUR PO SCH (09:41)
[2017-12-07] MEDS: ZESTRIL PO SCH (09:42)
[2017-12-07] MEDS: PROTONIX PO SCH ×2 (09:59→22:00)
[2017-12-07] MEDS: PERCOCET 5/325 PO PRN ×2 (13:08→19:41)
[2017-12-07] MEDS: FLEXERIL PO SCH (20:00)
[2017-12-08] MEDS: COREG PO SCH ×3 (06:02→21:00)
[2017-12-08] MEDS: ZESTRIL PO SCH ×2 (06:05→18:36)
[2017-12-08] MEDS: NORVASC PO SCH ×2 (06:07→10:00)
[2017-12-08] MEDS: FLEXERIL PO SCH ×3 (08:55→20:58)
[2017-12-08] MEDS: IMDUR PO SCH (09:30)
[2017-12-08] MEDS: PROTONIX PO SCH ×2 (09:30→21:00)
--- NOTE | 2017-12-08 13:05 | Progress Note ---
Assessment and Plan Assessment and plan: 52-year-old -English male with past medical history significant for hypertension presented to the emergency department for fall. Patient fell yesterday. He is also complaining chronic back pain. CT of cervical and thoracic spine is negative. Patient said he has been drinking beer and alcohol level was 0.2. Alcohol abuse - Patient is extensively counseled about cessation of alcohol - Patient is on CIWA protocol Lower back pain - CT of the cervical and thoracic spines negative - MRI of the lumbar area is pending - Pain control, muscle relaxant Hypertension - Continue medications DVT prophylaxis - On heparin Disposition - Recommend to medical floor History Interval history: Patient was seen and evaluated this morning, pain is getting better. Hospitalist Physical - Physical exam Narrative exam: Not in cardiopulmonary distress. The patient appeared well nourished and normally developed. Vital signs as documented. Head exam is unremarkable. No scleral icterus . Neck is without jugular venous distension, thyromegaly, or carotid bruits. Lungs are clear to auscultation. Cardiac exam reveals regular rate and Rhythm. First and second heart sounds normal. No murmurs, rubs or gallops. Abdominal exam reveals normal bowel sounds, no masses, no organomegaly and no aortic enlargement. Extremities are nonedematous and both femoral and pedal pulses are normal. 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 No focal weakness. - Constitutional Vitals: Temp Pulse Resp BP Pulse Ox 97.9 F 62 20 154/104 98 12/08/17 05:29 12/08/17 06:07 12/08/17 05:29 12/08/17 06:07 12/08/17 05:29 Results - Labs CBC & Chem 7: 12/06/17 12:14 12/07/17 03:34 Labs: Laboratory Last Values WBC 5.2 K/mm3 (4.5-11.0) 12/06/17 12:14 RBC 4.24 M/mm3 (3.65-5.03) 12/06/17 12:14 Hgb 13.0 gm/dl (11.8-15.2) 12/06/17 12:14 Hct 39.0 % (35.5-45.6) 12/06/17 12:14 MCV 92 fl (84-94) 12/06/17 12:14 MCH 31 pg (28-32) 12/06/17 12:14 MCHC 33 % (32-34) 12/06/17 12:14 RDW 14.6 % (13.2-15.2) 12/06/17 12:14 Plt Count 366 K/mm3 (140-440) 12/06/17 12:14 [place] % (Auto) Door To Door Selling Agent 12/06/17 12:14 Add Manual Diff Complete 12/06/17 12:14 Total Counted 100 12/06/17 12:14 Seg Neuts % (Manual) 47.0 % (40.0-70.0) 12/06/17 12:14 Band Neutrophils % 0 % 12/06/17 12:14 Lymphocytes % (Manual) 36.0 % (13.4-35.0) H 12/06/17 12:14 Reactive Lymphs % (Man) 0 % 12/06/17 12:14 Monocytes % (Manual) 14.0 % (0.0-7.3) H 12/06/17 12:14 Eosinophils % (Manual) 3.0 % (0.0-4.3) 12/06/17 12:14 Basophils % (Manual) 0 % (0.0-1.8) 12/06/17 12:14 Metamyelocytes % 0 % 12/06/17 12:14 Myelocytes % 0 % 12/06/17 12:14 Promyelocytes % 0 % 12/06/17 12:14 Blast Cells % 0 % 12/06/17 12:14 Nucleated RBC % Not Reportable 12/06/17 12:14 Seg Neutrophils # Man 2.4 K/mm3 (1.8-7.7) 12/06/17 12:14 Band Neutrophils # 0.0 K/mm3 12/06/17 12:14 Lymphocytes # (Manual) 1.9 K/mm3 (1.2-5.4) 12/06/17 12:14 Abs React Lymphs (Man) 0.0 K/mm3 12/06/17 12:14 Monocytes # (Manual) 0.7 K/mm3 (0.0-0.8) 12/06/17 12:14 Eosinophils # (Manual) 0.2 K/mm3 (0.0-0.4) 12/06/17 12:14 Basophils # (Manual) 0.0 K/mm3 (0.0-0.1) 12/06/17 12:14 Metamyelocytes # 0.0 K/mm3 12/06/17 12:14 Myelocytes # 0.0 K/mm3 12/06/17 12:14 Promyelocytes # 0.0 K/mm3 12/06/17 12:14 Blast Cells # 0.0 K/mm3 12/06/17 12:14 WBC Morphology Not Reportable 12/06/17 12:14 Hypersegmented Neuts Not Reportable 12/06/17 12:14 Hyposegmented Neuts Not Reportable 12/06/17 12:14 Hypogranular Neuts Not Reportable 12/06/17 12:14 Smudge Cells Not Reportable 12/06/17 12:14 Toxic Granulation Not Reportable 12/06/17 12:14 Toxic Vacuolation Not Reportable 12/06/17 12:14 Dohle Bodies Not Reportable 12/06/17 12:14 Pelger-Huet Anomaly Not Reportable 12/06/17 12:14 Esther Rods Not Reportable 12/06/17 12:14 Platelet Estimate Appears normal 12/06/17 12:14 Clumped Platelets Not Reportable 12/06/17 12:14 Plt Clumps, EDTA Not Reportable 12/06/17 12:14 Large Platelets Not Reportable 12/06/17 12:14 Giant Platelets Not Reportable 12/06/17 12:14 Platelet Satelliting Not Reportable 12/06/17 12:14 Plt Morphology Comment Not Reportable 12/06/17 12:14 RBC Morphology Not Reportable 12/06/17 12:14 Dimorphic RBCs Not Reportable 12/06/17 12:14 Polychromasia Not Reportable 12/06/17 12:14 Hypochromasia Not Reportable 12/06/17 12:14 Poikilocytosis 1+ 12/06/17 12:14 Anisocytosis Few 12/06/17 12:14 Microcytosis Not Reportable 12/06/17 12:14 Macrocytosis Not Reportable 12/06/17 12:14 Spherocytes Not Reportable 12/06/17 12:14 Pappenheimer Bodies Not Reportable 12/06/17 12:14 Sickle Cells Not Reportable 12/06/17 12:14 Target Cells Not Reportable 12/06/17 12:14 Tear Drop Cells Not Reportable 12/06/17 12:14 Ovalocytes Not Reportable 12/06/17 12:14 Helmet Cells Not Reportable 12/06/17 12:14 [place] Bodies Not Reportable 12/06/17 12:14 [place] Rings Not Reportable 12/06/17 12:14 [place] Cells Not Reportable 12/06/17 12:14 Bite Cells Not Reportable 12/06/17 12:14 Crenated Cell Not Reportable 12/06/17 12:14 Elliptocytes Not Reportable 12/06/17 12:14 Acanthocytes (Spur) Not Reportable 12/06/17 12:14 Rouleaux Not Reportable 12/06/17 12:14 Hemoglobin C Crystals Not Reportable 12/06/17 12:14 Schistocytes Not Reportable 12/06/17 12:14 Malaria parasites Not Reportable 12/06/17 12:14 Bubba Bodies Not Reportable 12/06/17 12:14 Hem Pathologist Commnt No 12/06/17 12:14 Sodium 136 mmol/L (137-145) L 12/07/17 03:34 Potassium 4.0 mmol/L (3.6-5.0) 12/07/17 03:34 Chloride 100.7 mmol/L (98-107) 12/07/17 03:34 Carbon Dioxide 20 mmol/L (22-30) L 12/07/17 03:34 Anion Gap 19 mmol/L 12/07/17 03:34 BUN 7 mg/dL (9-20) L 12/07/17 03:34 Creatinine 0.7 mg/dL (0.8-1.5) L 12/07/17 03:34 Estimated GFR > 60 ml/min 12/07/17 03:34 BUN/Creatinine Ratio 10 % 12/07/17 03:34 Glucose 75 mg/dL (75-100) 12/07/17 03:34 Calcium 8.4 mg/dL (8.4-10.2) 12/07/17 03:34 Phosphorus 3.00 mg/dL (2.5-4.5) 12/07/17 03:34 Magnesium 1.80 mg/dL (1.7-2.3) 12/07/17 03:34 Total Bilirubin 0.50 mg/dL (0.1-1.2) 12/07/17 03:34 Direct Bilirubin < 0.2 mg/dL (0-0.2) 12/07/17 03:34 Indirect Bilirubin 0.3 mg/dL 12/07/17 03:34 AST 44 units/L (5-40) H 12/07/17 03:34 ALT 22 units/L (7-56) 12/07/17 03:34 Alkaline Phosphatase 58 units/L (35-129) 12/07/17 03:34 Ammonia 27.0 umol/L (25-60) 12/07/17 03:34 Total Creatine Kinase 97 units/L (55-170) 12/06/17 Unknown Troponin T < 0.010 ng/mL (0.00-0.029) 12/06/17 Unknown Total Protein 7.0 g/dL (6.3-8.2) 12/07/17 03:34 Albumin 3.5 g/dL (3.9-5) L 12/07/17 03:34 Albumin/Globulin Ratio 1.0 % 12/07/17 03:34 Urine Color Straw (Yellow) 12/06/17 13:46 Urine Turbidity Clear (Clear) 12/06/17 13:46 Urine pH 5.0 (5.0-7.0) 12/06/17 13:46 Ur Specific [place] 1.002 (1.003-1.030) L 12/06/17 13:46 Urine Protein <15 mg/dl mg/dL (Negative) 12/06/17 13:46 Urine Glucose (UA) Neg mg/dL (Negative) 12/06/17 13:46 Urine Ketones Neg mg/dL (Negative) 12/06/17 13:46 Urine Blood Neg (Negative) 12/06/17 13:46 Urine Nitrite Neg (Negative) 12/06/17 13:46 Urine Bilirubin Neg (Negative) 12/06/17 13:46 Urine Urobilinogen < 2.0 mg/dL (<2.0) 12/06/17 13:46 Ur Leukocyte Esterase Neg (Negative) 12/06/17 13:46 Urine WBC (Auto) < 1.0 /HPF (0.0-6.0) 12/06/17 13:46 Urine RBC (Auto) < 1.0 /HPF (0.0-6.0) 12/06/17 13:46 Urine Opiates Screen Presumptive negative 12/06/17 13:46 Urine Methadone Screen Presumptive negative 12/06/17 13:46 Ur Barbiturates Screen Presumptive negative 12/06/17 13:46 Ur Phencyclidine Scrn Presumptive negative 12/06/17 13:46 Ur Amphetamines Screen Presumptive negative 12/06/17 13:46 U Benzodiazepines Scrn Presumptive negative 12/06/17 13:46 Urine Cocaine Screen Presumptive negative 12/06/17 13:46 U Marijuana (THC) Screen Presumptive negative 12/06/17 13:46 Drugs of Abuse Note Disclamer 12/06/17 13:46 Plasma/Serum Alcohol 0.27 % (0-0.07) H 12/06/17 12:11
--- NOTE | 2017-12-08 13:11 | Magnetic Resonance Report ---
FINAL REPORT PROCEDURE: MR LUMBAR SPINE WO CON TECHNIQUE: Magnetic resonance imaging of the lumbar spine was performed using standard pulse sequences without contrast material. CPT 25904 HISTORY: lower back pain COMPARISON: No prior studies are available for comparison. FINDINGS: There is loss of lumbar lordosis. Vertebral height and bone marrow signal are within normal limits. Conus medullaris is normal in location and appearance. Disc dehydration is noted from L3-4 to L5-S1 levels. L1-2: No significant abnormality . L2-3: No significant abnormality . L3-4: Mild degree diffuse disc bulge is noted without significant spinal canal or neural foraminal compromise.. L4-5: Moderate degree diffuse disc bulge is identified eccentric to the left resulting in mild degree stenosis of the left lateral recess.. L5-S1: Moderate degree broad-based disc protrusion is noted eccentric to the right resulting in moderate degree stenosis of right lateral recess and right neural foramina. Other: Limited study due to motion artifacts. IMPRESSION: Multilevel lumbar spondylosis as described above.
[2017-12-08] MEDS ORDERED: TYLENOL PO PRN (18:33)
[2017-12-08 23:53] LABS: Bilirubin,Urine NEG (Negative); Blood,Urine NEG (Negative); Color,Urine Yellow (Yellow); Protein,Urine <15 mg/dL mg/dL (Negative); WBC,Urine < 1.0 /HPF (0.0-6.0)
[2017-12-08 23:57] LABS: Amphetamine Screen,Urine PRESUMPTIVE NEGATIVE; Benzodiazepines Screen,Urine PRESUMPTIVE NEGATIVE; Cannabinoid Screen,Urine PRESUMPTIVE NEGATIVE; Cocaine Screen,Urine PRESUMPTIVE NEGATIVE; Methadone Screen,Urine PRESUMPTIVE NEGATIVE; Opiate Screen,Urine PRESUMPTIVE NEGATIVE
--- NOTE | 2017-12-09 10:33 | Discharge Summary ---
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 Patient fell yesterday. He is also complaining chronic back pain. CT of cervical and thoracic spine is negative. Patient said he has been drinking beer and alcohol level was 0.2. Alcohol abuse counseled about cessation, was put on CIWA protocol but does not have any signs of withdrawal. Lower back pain imaging of the spine was negative for acute findings. Patient was given pain medicine and muscle relaxer which controls her pain very well. Hypertension run out of his HIS blood pressure medication and I refilled it at the time of discharge. Advised to follow-up with primary care doctor. Patient was hemodynamically stable at the time of discharge. Patient's questions and concerns were addressed at the bedside. Patient discharged home in a stable condition. Disposition: TO HOME OR SELFCARE Time spent for discharge: 32 minutes - Discharge Diagnoses (1) Alcohol intoxication Status: Acute Qualifiers: Complication of substance-induced condition: with unspecified complication Qualified Code(s): F10.929 - Alcohol use, unspecified with intoxication, unspecified (2) Alcohol withdrawal Status: Acute Qualifiers: Complication of substance-induced condition: with unspecified complication Qualified Code(s): F10.239 - Alcohol dependence with withdrawal, unspecified (3) Noncompliance with medication regimen Status: Acute (4) Uncontrolled hypertension Status: Acute Core Measure Documentation - Palliative Care Palliative Care/ Comfort Measures: Not Applicable - Core Measures Any of the following diagnoses?: none Exam - Physical Exam Narrative exam: Not in cardiopulmonary distress. The patient appeared well nourished and normally developed. Vital signs as documented. Head exam is unremarkable. No scleral icterus . Neck is without jugular venous distension, thyromegaly, or carotid bruits. Lungs are clear to auscultation. Cardiac exam reveals regular rate and Rhythm. First and second heart sounds normal. No murmurs, rubs or gallops. Abdominal exam reveals normal bowel sounds, no masses, no organomegaly and no aortic enlargement. Extremities are nonedematous and both femoral and pedal pulses are normal. 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 No focal weakness. - Constitutional Vitals: Temp Pulse Resp BP Pulse Ox 98.2 F 62 19 140/89 97 12/09/17 06:14 12/09/17 08:00 12/09/17 06:14 12/09/17 06:14 12/09/17 06:14 Plan Activity: no restrictions Weight Bearing Status: Full Weight Bearing Diet: low salt Additional Instructions: F/U at [facility] in 1-2 weeks Follow up with: PRIMARY CARE, [Primary Care Provider] - 3-5 Days Prescriptions: AtorvaSTATin [Lipitor] 40 mg PO QHS #30 tablet amLODIPine [Norvasc] 10 mg PO QDAY #30 tablet Carvedilol [Coreg] 12.5 mg PO BID #60 tablet Cyclobenzaprine [Flexeril 10 MG TAB] 10 mg PO TID #90 tab ISOSORBIDE MONOnitrate [Imdur ER] 30 mg PO QDAY #30 tablet Lisinopril [Zestril TAB] 20 mg PO QDAY #30 tablet Pantoprazole [Protonix TAB] 40 mg PO BID #60 tablet
[2017-12-09] MEDS: PROTONIX PO SCH (11:30)
[2017-12-09] MEDS: COREG PO SCH (11:30)
[2017-12-09] MEDS: ZESTRIL PO SCH (11:30)
[2017-12-09] MEDS: IMDUR PO SCH (11:31)
[2017-12-09] MEDS: NORVASC PO SCH (11:31)
[2017-12-09] MEDS: FLEXERIL PO SCH (11:37)
[2017-12-09 12:57] VITALS: BP 140/103
== END 2017-12-09 13:00 | disposition home or self-care (01) | DRG 552 ==
LOC: ED 11:51 → 4A 12-07 03:44 → 3A 12-07 14:07
PROVIDERS: ADMIT Internal Medicine; ATTEND Internal Medicine
DX: M54.5 Low back pain (principal); R07.9 Chest pain, unspecified; I10 Essential (primary) hypertension; G89.29 Other chronic pain; F17.290 Nicotine dependence, other tobacco product, uncomplicated; F10.129 Alcohol abuse with intoxication, unspecified; Y90.0 Blood alcohol level of less than 20 mg/100 ml; W18.39XA Other fall on same level, initial encounter; Y93.89 Activity, other specified; Y92.098 Other place in other non-institutional residence as the place of occurrence of the external cause; Z91.14 Patient's other noncompliance with medication regimen; Y99.8 Other external cause status; Z71.41 Alcohol abuse counseling and surveillance of alcoholic
CPT/HCPCS: 36415; 70450; 72125; 72128; 72148; 74177; 80048; 80053; 80074; 80307; 80320; 81001; 82140; 82550; 83735; 84100; 84484; 85007; 85025; 93005; 93010; 99406; A9270-GY; G0480; J0360; J1170; J2060; J2405; J3411; J7030; Q9967

== ENCOUNTER 2018-05-05 01:41 | Emergency (ER) | payer OTHER, SELFPAY ==
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
[2018-05-05 04:17] VITALS: BP 142/82
== END 2018-05-05 04:32 | disposition home or self-care (01) ==
LOC: ED 01:41
DX: K05.10 Chronic gingivitis, plaque induced (principal); I10 Essential (primary) hypertension; E78.5 Hyperlipidemia, unspecified; F17.200 Nicotine dependence, unspecified, uncomplicated

== ENCOUNTER 2018-08-24 17:15 | Emergency (ER) | payer SELFPAY ==
[2018-08-24] MEDS ORDERED: ASPIRIN PO ONE (17:54)
[2018-08-24] MEDS ORDERED: LOPRESSOR IV ONE (18:02)
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
[2018-08-24 18:13] LABS: Hematocrit 29.6 % (35.5-45.6); Hemoglobin 9.4 gm/dl (11.8-15.2); Mean Corpuscular HGB Conc 32 % (32-34); Platelet Count 301 K/mm3 (140-440); Red Blood Count 4.42 M/mm3 (3.65-5.03)
[2018-08-24 18:16] LABS: Mean Corpuscular Volume 67 fl (84-94); Red Cell Distribution Width 22.6 % (13.2-15.2)
[2018-08-24 18:33] LABS: BUN/Creatinine Ratio 9; Blood Urea Nitrogen 7 mg/dL (9-20); Calcium 8.2 mg/dL (8.4-10.2); Hemolysis Index 0
[2018-08-24 18:39] LABS: INR 0.85 (0.87-1.13)
[2018-08-24 18:40] LABS: Partial Thromboplastin Time 32.6 Sec. (24.2-36.6)
[2018-08-24 18:50] LABS: Alanine Aminotransferase 41 units/L (7-56); Albumin 3.6 g/dL (3.9-5)
[2018-08-24 18:54] LABS: Bilirubin,Direct < 0.2 mg/dL (0-0.2)
--- NOTE | 2018-08-24 18:56 | XRay Report ---
PROCEDURE: XR CHEST 1V AP TECHNIQUE: Chest radiograph single view. HISTORY: Chest Pain COMPARISONS: None . FINDINGS: Heart: Normal. Mediastinum/Vessels: Normal. Lungs/Pleural space: Normal. Bony thorax: No acute osseous abnormality. Life support devices: None. IMPRESSION: No acute cardiopulmonary abnormality. This document is electronically signed by Debi Payan MD., Aug 24 2018 06:54:00 PM ET
[2018-08-24 19:09] LABS: Basophils % (Manual) 0 % (0.0-1.8); Eosinophils % (Manual) 0 % (0.0-4.3); Total Cells Counted 100
[2018-08-24 19:10] LABS: Anisocytosis 1+; Poikilocytosis 1+; Schistocytes Few; Target Cells 1+
[2018-08-24] MEDS ORDERED: ROBITUSSIN PO ONE (20:22)
[2018-08-24] MEDS ORDERED: CATAPRES PO ONE (20:36)
[2018-08-24 21:54] VITALS: BP 117/91
== END 2018-08-24 22:19 | disposition home or self-care (01) ==
LOC: ED 17:15
DX: R07.2 Precordial pain (principal); I10 Essential (primary) hypertension; J20.9 Acute bronchitis, unspecified; E53.8 Deficiency of other specified B group vitamins; E78.5 Hyperlipidemia, unspecified; F17.200 Nicotine dependence, unspecified, uncomplicated
CPT/HCPCS: 36415; 71045; 80048; 80076; 82607; 83880; 84484; 85007; 85025; 85610; 85730; 93005; 93010; 96372; 96374

== ENCOUNTER 2019-02-25 16:49 | Emergency (ER) | payer SELFPAY ==
[2019-02-25 17:49] LABS: Hemoglobin 12.3 gm/dl (11.8-15.2); Mean Corpuscular HGB Conc 32 % (32-34); Mean Corpuscular Volume 74 fl (84-94); Platelet Count 228 K/mm3 (140-440); Red Blood Count 5.25 M/mm3 (3.65-5.03); Red Cell Distribution Width 19.4 % (13.2-15.2)
[2019-02-25 17:54] LABS: BUN/Creatinine Ratio 10; Blood Urea Nitrogen 10 mg/dL (9-20); Calcium 9.2 mg/dL (8.4-10.2); Hemolysis Index 8
[2019-02-25 18:46] LABS: Total Cells Counted 100
[2019-02-25 18:47] LABS: Basophils % (Manual) 0 % (0.0-1.8); Eosinophils % (Manual) 0 % (0.0-4.3); Hypochromasia 2+; Large Platelets 1+; Target Cells 1+
[2019-02-25 18:48] LABS: Anisocytosis 1+; Platelet Estimate Consistent w Auto
[2019-02-25 18:48] LABS: Bilirubin,Urine NEG (Negative); Blood,Urine NEG (Negative); Color,Urine Yellow (Yellow); Mucus,Urine FEW /HPF; Protein,Urine <15 mg/dL mg/dL (Negative)
[2019-02-25 18:55] LABS: Amphetamine Screen,Urine PRESUMPTIVE NEGATIVE; Benzodiazepines Screen,Urine PRESUMPTIVE NEGATIVE; Cannabinoid Screen,Urine PRESUMPTIVE NEGATIVE; Cocaine Screen,Urine PRESUMPTIVE NEGATIVE; Methadone Screen,Urine PRESUMPTIVE NEGATIVE; Opiate Screen,Urine PRESUMPTIVE NEGATIVE
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
[2019-02-25] MEDS ORDERED: cloNIDine 0.1 MG TAB ONE (21:49)
[2019-02-25] MEDS ORDERED: cloNIDine 0.1 MG TAB PO ONE (21:49)
[2019-02-26] MEDS: amLODIPine 5 MG TAB PO SCH (09:45)
[2019-02-26] MEDS: hydroCHLOROthiazide 25 MG TAB PO SCH (09:45)
[2019-02-26] MEDS ORDERED: IBUPROFEN 800 MG TAB PO STA (09:51)
--- NOTE | 2019-02-26 10:45 | Consultation ---
History of Present Illness - Reason for Consult Consult date: 02/26/19 Reason for consult: Mental Health Evaluation Requesting physician: EDVIN DEUTSCH - Chief Complaint Chief complaint: "I want to kill myself" - History of Present Psychiatric Illness 53 y.o. AA male who presented to the ER for SI's and etoh. Today the patient was calm during the assessment. He stated that he cannot read and is having a difficult time with his social security (SS) application. He stated that he has tried several times to get help so he can finalize his social security benefits, He stated that he isn't receiving help with his SS application, so he is self medicating with alcohol (etoh) and attempted to kill himself yesterday by walking in front of a bus. He stated that his alcohol consumption (etoh) have in creased over the past year. He stated that his last drink was 2 days ago. He denies a previous suicide attempt when asked. He rate his depression 8/10, with 10 being the worse. He denies HI's and AVH's. He would not confirm or deny SI's. He denies recreational drug use. Medications and Allergies Allergies Allergy/AdvReac Type Severity Reaction Status Date / Time No Known Allergies Allergy Verified 07/09/17 22:12 Home Medications Medication Instructions Recorded Confirmed Last Taken Type AtorvaSTATin [Lipitor] 40 mg PO QHS #30 tablet 12/09/17 Unknown Rx Cyclobenzaprine [Flexeril 10 MG 10 mg PO TID #90 tab 12/09/17 Unknown Rx TAB] ISOSORBIDE MONOnitrate [Imdur ER] 30 mg PO QDAY #30 tablet 12/09/17 Unknown Rx Lisinopril [Zestril TAB] 20 mg PO QDAY #30 tablet 12/09/17 Unknown Rx Pantoprazole [Protonix TAB] 40 mg PO BID #60 tablet 12/09/17 Unknown Rx amLODIPine 10 mg PO QDAY #30 tablet 12/09/17 Unknown Rx carvediloL [Coreg] 12.5 mg PO BID #60 tablet 12/09/17 Unknown Rx Azithromycin [Zithromax Z-TAMARA] 250 mg PO DAILY 1 Days tab 08/24/18 Unknown Rx Cyanocobalamin (Vitamin B-12) 1,000 mcg PO DAILY #14 tablet 08/24/18 Unknown Rx [Vitamin B-12] amLODIPine [Norvasc] 5 mg PO DAILY #30 tab 08/24/18 Unknown Rx guaiFENesin [Robitussin] 5 ml PO TID PRN #100 ml 08/24/18 Unknown Rx hydroCHLOROthiazide [HCTZ] 25 mg PO QDAY #30 tablet 08/24/18 Unknown Rx Active Meds: Active Medications Amlodipine Besylate (Amlodipine) 5 mg PO QDAY [facility] Last Admin: 02/26/19 09:45 Dose: 5 mg Documented by: Hydrochlorothiazide (Hctz) 25 mg PO DAILY [facility] Last Admin: 02/26/19 09:45 Dose: 25 mg Documented by: Past psychiatric history - Past Medical History Past Medical History: other (Back Pain) Past Surgical History: No surgical history - past Psychiatric treatment and history psychiatric treatment history: Hx of alcohol abuse. Denies a fam psy hx. - Social History Social history: other (Homeless) Mental Status Exam - Vital signs Last Vital Signs Temp 98.7 F 02/26/19 01:23 Pulse 87 02/26/19 01:23 Resp 18 02/26/19 01:23 BP 186/123 02/26/19 01:23 Pulse Ox 94 02/26/19 01:23 - Exam Narrative exam: MSE: Appearance: malodorous Behavior: regular eye contact Speech: regular rate and tone Mood:: "down" Affect: flat Thought Process: circumstantial Thought Content: denies HI's and AVH's Motor Activity: ambulatory Cognition: A/O x3 Insight: variable Judgment: poor Results Result Diagrams: 02/25/19 Unknown 02/25/19 Unknown Abnormal lab results 02/25/19 02/25/19 02/25/19 Range/Units Unknown Unknown Unknown RBC (3.65-5.03) M/mm3 MCV (84-94) fl MCH (28-32) pg RDW (13.2-15.2) % Monocytes % (Manual) (0.0-7.3) % Carbon Dioxide 20 L (22-30) mmol/L Salicylates 0.7 L (2.8-20.0) mg/dL Acetaminophen < 5.0 L (10.0-30.0) ug/mL Plasma/Serum Alcohol (0-0.07) % 11/19/19 11/19/19 Range/Units Unknown Unknown RBC 5.25 H (3.65-5.03) M/mm3 MCV 74 L (84-94) fl MCH 23 L (28-32) pg RDW 19.4 H (13.2-15.2) % Monocytes % (Manual) 14.0 H (0.0-7.3) % Carbon Dioxide (22-30) mmol/L Salicylates (2.8-20.0) mg/dL Acetaminophen (10.0-30.0) ug/mL Plasma/Serum Alcohol 0.17 H (0-0.07) % All other labs normal. Assessment and Plan Assessment and plan: Impression: MDD. Alcohol Use DO. Today the patient was calm during the assessm ent. The patient's BP is elevated. DDx: Alcohol Induced Mood DO Recommendation/Plan: Transition 1012 to 2012. Start Zoloft 50 mg Po daily for depression. Discussed possible suicidality/medication induced aurelio with the patient reference Zoloft, he verbalized understanding. Monitor the patient for etoh withdrawals. Assigned nurse notified about possible CIWA for the patient. ER MD's can address CIWA protocol for the patient. Dispo: The patient will be referred to inpatient psy services once medically clear. Will staff with Dr Scott Ansari.
[2019-02-26] MEDS ORDERED: LORazepam 2 MG TAB PO PRN ×2 (11:29)
[2019-02-26] MEDS ORDERED: LORazepam 2 MG/ML VIAL IV PRN (11:29)
[2019-02-26] MEDS: SERTRALINE 50 MG TAB PO SCH (13:31)
[2019-02-27] MEDS ORDERED: cloNIDine 0.2 MG TAB PO ONE ×2 (02:27→12:44)
[2019-02-27] MEDS: amLODIPine 5 MG TAB PO SCH (10:18)
[2019-02-27] MEDS: SERTRALINE 50 MG TAB PO SCH (10:18)
[2019-02-27] MEDS: hydroCHLOROthiazide 25 MG TAB PO SCH (10:19)
[2019-02-27] MEDS ORDERED: cloNIDine 0.2 MG TAB ONE (12:33)
--- NOTE | 2019-02-27 14:45 | Progress Note ---
Subjective - Reason for Consult Consult date: 02/27/19 Reason for consult: Psychiatry Follow-up - Chief Complaint Chief complaint: "I feel a little better" 53 y.o. AA male who presented to the ER for SI's and etoh. Today the patient was calm and cooperative during the assessment. He stated that his SI's are "going away." He stated that he is more concern with his "blood pressure." He denies HI's and AVH's. He denies any side effects from his medication. Mental Status Exam - Vital signs Last Vital Signs Temp 98.0 F 02/27/19 07:00 Pulse 83 02/27/19 12:45 Resp 18 02/27/19 07:00 BP 172/123 02/27/19 12:45 Pulse Ox 98 02/27/19 07:00 - Exam Narrative exam: MSE: Appearance: calm, cooperative Behavior: regular eye contact Speech: regular rate and tone Mood:: "okay" Affect: flat Thought Process: circumstantial Thought Content: denies HI's and AVH's Motor Activity: ambulatory Cognition: A/O x3 Insight: fair Judgment: variable to fair Assessment and Plan Impression: MDD. Alcohol Use DO. Today the patient was calm during the assessment. The patient's BP is elevated. DDx: Alcohol Induced Mood DO Recommendation/Plan: Reevaluate the patient's 2013 in 24 hours. Continue Zoloft 50 mg PO daily for depression. Discussed possible suicidality/medication induced aurelio with the patient reference Zoloft, he verbalized understanding. Monitor the patient for etoh withdrawals. Assigned nurse notified about possible CIWA for the patient. ER MD's can address CIWA protocol for the patient. Dispo: The patient will be referred to inpatient psy services once medically clear. Staffed with Dr Scott Ansari.
--- NOTE | 2019-02-28 08:48 | Progress Note ---
Subjective - Reason for Consult Consult date: 02/28/19 Reason for consult: Psychiatry Follow-up - Chief Complaint Chief complaint: "I will get myself together" 53 y.o. AA male who presented to the ER for SI's and etoh. Today the patient was calm and cooperative during the assessment. He stated that he feels better and look forward to getting his SS benefits started. He stated that he will limit his alcohol (etoh) consumption. He denies SI/HI's and AVH's. He denies any side effects from his medication. Mental Status Exam - Vital signs Last Vital Signs Temp 98.5 F 02/28/19 07:00 Pulse 89 02/28/19 07:00 Resp 18 02/28/19 07:00 BP 142/111 02/28/19 07:00 Pulse Ox 98 02/28/19 07:00 - Exam Narrative exam: MSE: Appearance: calm, cooperative Behavior: regular eye contact Speech: regular rate and tone Mood:: "okay" Affect: congruent to mood Thought Process: logial Thought Content: denies SI/HI's and AVH's Motor Activity: ambulatory Cognition: A/O x3 Insight: fair Judgment: fair Assessment and Plan Impression: MDD. Alcohol Use DO. Today the patient was calm during the assessment. The patient's BP is elevated. The patient is no threat to self. DDx: Alcohol Induced Mood DO Suicide Risk Assessment I. This screening and assessment is based on information collected from the following sources: II. SUICIDE RISK SCREENING (within last 30 days): A.) Suicidal thoughts/behaviors: Yes SUICIDE RISK ASSESSMENT III. FACTORS THAT INCREASE RISK: A.) Demographic and Substance Use Factors: Yes (Etoh) B.) Current/Recent Factors (within past 3 months): Psychosocial/Environmental Factors: Life Stressors Physical Illness: None Cognitive/Psychological Factors: None C.) Historical Factors: None D.) Diagnostic/Symptom/Treatment Factors: None E.) Acute Risk Factor Severity (DESC; MILD/MOD/SEVERE): Mild Other factors for this individual that increase risk: None IV. FACTORS THAT DECREASE RISK: Resilience/Protective Factors: Patient want to decrease his stress Other factors for this individual that decrease risk: Patient denies a desire to harm self V. Clinician's Formulation of Risk and Determination of level of Care: This is a 53 y.o. AA male who attempted to walk in front of bus prior to his arrival to the ER. The patient was intoxicated. He stated that his actions were unsafe. He acknowledged that his judgment was altered. He stated that he will follow-up with outpatient psy services once discharged. He has become insightful about how to better address his issues. The patient is not impaired by substance. He is able to take care of her ADLs and is not at imminent risk of harm to self or others. Consequently, it is the opinion of the treatment team that the patient is at low risk of suicide and does not meet criteria to continue an involuntary psychiatric hold. Estimation of Imminent Risk: Low due to the above explanation. Determination of Level of Care based on Suicide Risk: Outpatient follow-up. Narrative description of clinical reasoning. Given the fact that the patient is willing to engage in outpatient psy/rehab services care, it is reasonable to expect that the patient will seek services. At this current time, he is not impulsive and does not have any risk factors to increase the likelihood of his impulsive behavior. Therefore, it is reasonable to expect that the patient will engage in outpatient psy/rehab services which will reduce further unsafe beha viors. . Plan and Interventions based on Suicide Risk: This patient will likely be stepped down to an outpatient mental health center in the community upon discharge and follow-up within 7 days of her discharge from the hospital. VII. Discharge/After Hours Support Plan: Patient can return back to the ER, call 911 or crisis line if symptoms of depression, anxiety, suicidality return. Recommendation/Plan: Rescind 2013. Continue Zoloft 50 mg PO daily for depression. Discussed possible suicidality/medication induced aurelio with the patient reference Zoloft, he verbalized understanding. Discussed the importance to abstain from excessive alcohol consumption (etoh) with the patient, he verbalized understanding. Case Mgmt involvement, the patient is homeless. Dispo: The patient can follow up with [facility] for outpatient psy/rehab services. Staffed with Dr Scott Ansari.
[2019-02-28] MEDS ORDERED: IBUPROFEN 600 MG TAB PO ONE (08:57)
[2019-02-28] MEDS: amLODIPine 5 MG TAB PO SCH (10:20)
[2019-02-28] MEDS: hydroCHLOROthiazide 25 MG TAB PO SCH (10:20)
[2019-02-28 10:26] VITALS: BP 170/104
[2019-02-28] MEDS: SERTRALINE 50 MG TAB PO SCH (10:26)
== END 2019-02-28 11:00 | disposition home or self-care (01) ==
LOC: EEVIPCON 16:49 → ED 16:49
DX: F32.9 Major depressive disorder, single episode, unspecified (principal); I10 Essential (primary) hypertension; F10.929 Alcohol use, unspecified with intoxication, unspecified; Z79.899 Other long term (current) drug therapy; E78.5 Hyperlipidemia, unspecified; F17.200 Nicotine dependence, unspecified, uncomplicated
CPT/HCPCS: 36415; 80048; 80307; 80320; 81001; 85007; 85025; G0480

== ENCOUNTER 2019-03-22 21:45 | Emergency (ER) | payer SELFPAY ==
[2019-03-22] MEDS ORDERED: cloNIDine 0.1 MG TAB PO ONE (22:25)
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
--- NOTE | 2019-03-22 22:45 | XRay Report ---
CHEST 1 VIEW INDICATION / CLINICAL INFORMATION: Chest Pain. COMPARISON: 08/24/2018 FINDINGS: SUPPORT DEVICES: None. HEART / MEDIASTINUM: No significant abnormality. LUNGS / PLEURA: No significant pulmonary or pleural abnormality. No pneumothorax. ADDITIONAL FINDINGS: No significant additional findings. IMPRESSION: 1. No significant change Signer Name: Rui Garcia MD Signed: 03/22/2019 10:41 PM Workstation Name: [id number]
[2019-03-22 23:37] LABS: Hematocrit 35.1 % (35.5-45.6); Mean Corpuscular HGB Conc 32 % (32-34); Mean Corpuscular Volume 74 fl (84-94); Platelet Count 277 K/mm3 (140-440); Red Blood Count 4.72 M/mm3 (3.65-5.03); Red Cell Distribution Width 19.2 % (13.2-15.2)
[2019-03-22 23:41] LABS: BUN/Creatinine Ratio 11; Blood Urea Nitrogen 8 mg/dL (9-20); Calcium 8.4 mg/dL (8.4-10.2); Hemolysis Index 6
[2019-03-22 23:53] LABS: Alanine Aminotransferase 22 units/L (7-56); Albumin 3.6 g/dL (3.9-5)
[2019-03-23 00:01] LABS: Bilirubin,Direct < 0.2 mg/dL (0-0.2)
[2019-03-23 00:40] LABS: Amphetamine Screen,Urine PRESUMPTIVE NEGATIVE; Benzodiazepines Screen,Urine PRESUMPTIVE NEGATIVE; Cannabinoid Screen,Urine PRESUMPTIVE NEGATIVE; Cocaine Screen,Urine PRESUMPTIVE NEGATIVE; Methadone Screen,Urine PRESUMPTIVE NEGATIVE; Opiate Screen,Urine PRESUMPTIVE NEGATIVE
[2019-03-23 02:22] LABS: Total Cells Counted 100
[2019-03-23 02:24] LABS: Anisocytosis Few; Ovalocytes Few; Platelet Estimate Consistent w Auto
--- NOTE | 2019-03-23 07:12 | Cat Scan Report ---
Head CT without intravenous contrast INDICATION: Altered mental status COMPARISON: 12/06/2017 FINDINGS: Moderate central and cortical atrophy is seen with mild ventricular dilation. There is micr oangiopathic ischemic change with old lacunar infarcts in the thalami.. No hemorrhage or extra-axial fluid collection. No edema or mass effect. Portions of the sinuses visualized are clear. No skull fra cture identified. IMPRESSION: Negative head CT. No appreciable change. Automated exposure control was utilized to diminish radiation dose Signer Name: Rui Garcia MD Signed: 03/23/2019 7:07 AM Workstation Name: [id number]
--- NOTE | 2019-03-23 07:18 | Cat Scan Report ---
CT of the cervical spine INDICATION: Neck pain FINDINGS: The vertebral body heights are intact with no compression fractures seen. There is moderate ly severe disc space narrowing at C6-C7 with anterior spurring. Anterior spurs are also seen at C5-C6 . There is no subluxation. No posterior element or odontoid fracture. No definite epidural hematoma. No central canal stenosis. There is no significant facet arthropathy. IMPRESSION: Degenerative disc disease C6-C7. No acute traumatic abnormality. All CT scans at this location are performed using CT dose reduction for ALARA by means of automated e xposure control Signer Name: Rui Garcia MD Signed: 03/23/2019 7:14 AM Workstation Name: [id number]
[2019-03-23 08:03] VITALS: BP 169/98
== END 2019-03-23 10:20 | disposition home or self-care (01) ==
LOC: ED 21:45
DX: I10 Essential (primary) hypertension (principal); F10.129 Alcohol abuse with intoxication, unspecified; F17.200 Nicotine dependence, unspecified, uncomplicated; Z79.899 Other long term (current) drug therapy
CPT/HCPCS: 36415; 70450; 71045; 72125; 80048; 80076; 80307; 80320; 82550; 83690; 83735; 83880; 84484; 85007; 85025; 93005; 93010; G0480

== ENCOUNTER 2019-04-20 11:47 | Inpatient (IN) | payer OTHER ==
--- NOTE | 2019-04-20 12:28 | Event Note ---
ED Screening Note ED Screening Note: left sided CP that began two days ago states he has palpitations states he had a syncopal episode today, unsure how long he was on the ground states he has had syncopal episodes before PMHx HTN, HLD, doesn't take his medication This initial assessment/diagnostic orders/clinical plan/treatment(s) is/are subject to change based on patients health status, clinical progression and re- assessment by fellow clinical providers in the ED. Further treatment and workup at subsequent clinical providers discretion. Patient/guardian urged not to elope from the ED as their condition may be serious if not clinically assessed and managed. Initial orders include: CP protocol
[2019-04-20 13:07] LABS: Hematocrit 42.1 % (35.5-45.6); Hemoglobin 13.4 gm/dl (11.8-15.2); Mean Corpuscular HGB Conc 32 % (32-34); Mean Corpuscular Volume 74 fl (84-94); Platelet Count 353 K/mm3 (140-440); Red Blood Count 5.72 M/mm3 (3.65-5.03); Red Cell Distribution Width 18.6 % (13.2-15.2)
[2019-04-20 13:09] LABS: INR 0.97 (0.87-1.13)
[2019-04-20 13:10] LABS: Partial Thromboplastin Time 26.8 Sec. (24.2-36.6)
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
[2019-04-20 13:23] LABS: Creatine Kinase MB 3.9 ng/mL (0.0-4.0)
[2019-04-20 13:25] LABS: Alanine Aminotransferase 45 units/L (7-56); BUN/Creatinine Ratio 13; Blood Urea Nitrogen 9 mg/dL (9-20); Hemolysis Index 3
[2019-04-20 13:50] LABS: INR 0.94 (0.87-1.13)
--- NOTE | 2019-04-20 13:51 | XRay Report ---
CHEST 1 VIEW 04/20/2019 1:28 PM INDICATION / CLINICAL INFORMATION: hypertension. COMPARISON: Chest x-ray 03/22/2019 FINDINGS: SUPPORT DEVICES: None. HEART / MEDIASTINUM: No significant abnormality. LUNGS / PLEURA: No significant pulmonary or pleural abnormality. No pneumothorax. ADDITIONAL FINDINGS: No significant additional findings. IMPRESSION: 1. No acute findings. Signer Name: Mariano Wolf MD Signed: 04/20/2019 1:47 PM Workstation Name: [id number]
[2019-04-20 13:57] LABS: Partial Thromboplastin Time 26.8 Sec. (24.2-36.6)
--- NOTE | 2019-04-20 13:57 | Cat Scan Report ---
CT head/brain wo con INDICATION / CLINICAL INFORMATION: 54 years Male; syncope. TECHNIQUE: Routine CT head without contrast. All CT scans at this location are performed using CT dos e reduction for ALARA by means of automated exposure control. COMPARISON: 03/23/2019 FINDINGS: BRAIN / INTRACRANIAL CONTENTS: Small lacunar infarcts seen in the thalamic regions bilaterally, some of which are age indeterminate without diffusion imaging by MRI. Otherwise, no acute hemorrhage, mass effect, midline shift, hydrocephalus, or acute, large territori al infarct. Mild to moderate cerebral and cerebellar atrophy. There are moderate areas of decreased attenuation in the white matter of the cerebral hemispheres, as well as the gangliocapsular regions. These are nonspecific findings and may be related to microangio sanam (hypertension, diabetes, atherosclerosis), given the patient's age. It might be difficult to ev aluate for small areas of ischemia without diffusion imaging by MRI. Pontine disease noted as well. CRANIOCERVICAL JUNCTION: No significant abnormality. ORBITS: No significant abnormality of visualized orbits. SINUSES / MASTOIDS: No significant abnormality the visualized paranasal sinuses or mastoid air cells. ADDITIONAL FINDINGS: Poor dentition noted. Significant periodontal disease seen along the roots of mu ltiple teeth. Atherosclerotic disease is seen in the anterior circulation. IMPRESSION: 1. No focal mass, hemorrhage, hydrocephalus, or acute, large territorial infarct. Follow-up with diff usion imaging by MRI, as clinically warranted. Signer Name: Arnol Pereira MD, III Signed: 04/20/2019 1:52 PM Workstation Name: [id number]
[2019-04-20 14:53] LABS: Amphetamine Screen,Urine PRESUMPTIVE NEGATIVE; Benzodiazepines Screen,Urine PRESUMPTIVE NEGATIVE; Cannabinoid Screen,Urine PRESUMPTIVE NEGATIVE; Cocaine Screen,Urine PRESUMPTIVE NEGATIVE; Methadone Screen,Urine PRESUMPTIVE NEGATIVE; Opiate Screen,Urine PRESUMPTIVE NEGATIVE
[2019-04-20 14:54] LABS: Eosinophils % (Manual) 0 % (0.0-4.3); Total Cells Counted 100
[2019-04-20 14:55] LABS: Target Cells Few
[2019-04-20 14:56] LABS: Hypochromasia Few; Large Platelets Few; Platelet Estimate Cons
[2019-04-20 14:58] LABS: Bilirubin,Urine NEG (Negative); Blood,Urine SM (Negative); Color,Urine Yellow (Yellow); Mucus,Urine FEW /HPF; Urobilinogen,Urine < 2.0 mg/dL (<2.0); WBC,Urine < 1.0 /HPF (0.0-6.0)
[2019-04-20] MEDS ORDERED: ASPIRIN 325 MG TAB PO ONE (14:58)
[2019-04-20] MEDS ORDERED: niCARdipine 50 MG in SODIUM CHLORIDE 0.9% 250ML 230 ML IV SCH (15:00)
--- NOTE | 2019-04-20 15:09 | History and Physical Report ---
History of Present Illness Date of examination: 04/20/19 Date of admission: 04/20/19 Chief complaint: fall History of present illness: 52-year-old male presents with past medical history of EtOH abuse, hypertension noncompliant with antihypertensive medications and spondylosis presents with chief complaint of a fall today. Patient reports the episode as possibly sy ncopal. Patient states the last time he took his blood pressure medication was approximately 4 years ago. Blood pressure upon initial arrival in the emergency room was 216/151. ER physician has started Cardene drip. Patient denies any pain or shortness of breath. ER physician stated patient reported chest pain previously. No reports to me today. Patient denies any other symptomatology other than bilateral lower extremity weakness. Patient was admitted December 2017 for the lower extremity weakness and had MRI of the lumbar spine which revealed multilevel lumbar spondylosis. No nausea vomiting or diarrhea. No fever chills. No cough or cold like symptoms. Past History Past Medical History: hypertension, other (Spondylosis) Past Surgical History: No surgical history Social history: smoking, alcohol abuse Family history: no significant family history Medications and Allergies Allergies Allergy/AdvReac Type Severity Reaction Status Date / Time No Known Allergies Allergy Verified 07/09/17 22:12 Home Medications Medication Instructions Recorded Confirmed Last Taken Type ISOSORBIDE MONOnitrate [Imdur ER] 30 mg PO QDAY #30 tablet 12/09/17 03/22/19 Unknown Rx Pantoprazole [Protonix TAB] 40 mg PO BID #60 tablet 12/09/17 03/22/19 Unknown Rx amLODIPine 10 mg PO QDAY #30 tablet 12/09/17 03/22/19 Unknown Rx carvediloL [Coreg] 12.5 mg PO BID #60 tablet 12/09/17 03/22/19 Unknown Rx lisinopriL [Zestril TAB] 20 mg PO QDAY #30 tablet 12/09/17 03/22/19 Unknown Rx hydroCHLOROthiazide [HCTZ] 25 mg PO QDAY #30 tablet 08/24/18 03/22/19 Unknown Rx Lisinopril [Zestril TAB] 30 mg PO QDAY #30 tab 03/23/19 Unknown Rx amLODIPine 10 mg PO DAILY #30 tab 03/23/19 Unknown Rx hydroCHLOROthiazide [HCTZ] 25 mg PO QDAY #30 tablet 03/23/19 Unknown Rx Active Meds: Active Medications Nicardipine HCl 50 mg/ Sodium (Chloride) 250 mls @ 25 mls/hr IV TITR [place]; Protocol Review of Systems All systems: negative Exam - Constitutional Vitals: Temp Pulse Resp BP Pulse Ox 98.7 F 85 13 159/123 86 04/20/19 13:06 04/20/19 14:51 04/20/19 14:31 04/20/19 14:51 04/20/19 14:31 General appearance: Present: no acute distress, well-nourished - EENT Eyes: Present: PERRL ENT: hearing intact, clear oral mucosa - Neck Neck: Present: supple, normal ROM - Respiratory Respiratory effort: normal Respiratory: bilateral: CTA - Cardiovascular Heart Sounds: Present: S1 & S2. Absent: rub, click - Extremities Extremities: pulses symmetrical, No edema Peripheral Pulses: within normal limits - Abdominal General gastrointestinal: Present: soft, non-tender, non-distended, normal bowel sounds Male genitourinary: Present: normal - Integumentary Integumentary: Present: clear, warm, dry - Musculoskeletal Musculoskeletal: gait normal, strength equal bilaterally - Psychiatric Psychiatric: appropriate mood/affect, intact judgment & insight - Neurologic Neurologic: CNII-XII intact, moves all extremities Results - Labs CBC & Chem 7: 04/20/19 12:46 04/20/19 12:46 Labs: Laboratory Last Values WBC 5.5 K/mm3 (4.5-11.0) 04/20/19 12:46 RBC 5.72 M/mm3 (3.65-5.03) H 04/20/19 12:46 Hgb 13.4 gm/dl (11.8-15.2) 04/20/19 12:46 Hct 42.1 % (35.5-45.6) 04/20/19 12:46 MCV 74 fl (84-94) L 04/20/19 12:46 MCH 24 pg (28-32) L 04/20/19 12:46 MCHC 32 % (32-34) 04/20/19 12:46 RDW 18.6 % (13.2-15.2) H 04/20/19 12:46 Plt Count 353 K/mm3 (140-440) 04/20/19 12:46 [place] % (Auto) Cashiers Supervisor 04/20/19 12:46 Add Manual Diff Complete 01/12/20 12:46 Total Counted 100 04/20/19 12:46 Seg Neuts % (Manual) 69.0 % (40.0-70.0) 04/20/19 12:46 Band Neutrophils % 0 % 04/20/19 12:46 Lymphocytes % (Manual) 16.0 % (13.4-35.0) 04/20/19 12:46 Reactive Lymphs % (Man) 0 % 04/20/19 12:46 Monocytes % (Manual) 14.0 % (0.0-7.3) H 04/20/19 12:46 Eosinophils % (Manual) 0 % (0.0-4.3) 04/20/19 12:46 Basophils % (Manual) 1.0 % (0.0-1.8) 04/20/19 12:46 Metamyelocytes % 0 % 04/20/19 12:46 Myelocytes % 0 % 04/20/19 12:46 Promyelocytes % 0 % 04/20/19 12:46 Blast Cells % 0 % 04/20/19 12:46 Nucleated RBC % Not Reportable 04/20/19 12:46 Seg Neutrophils # Man 3.8 K/mm3 (1.8-7.7) 04/20/19 12:46 Band Neutrophils # 0.0 K/mm3 04/20/19 12:46 Lymphocytes # (Manual) 0.9 K/mm3 (1.2-5.4) L 04/20/19 12:46 Abs React Lymphs (Man) 0.0 K/mm3 04/20/19 12:46 Monocytes # (Manual) 0.8 K/mm3 (0.0-0.8) 04/20/19 12:46 Eosinophils # (Manual) 0.0 K/mm3 (0.0-0.4) 04/20/19 12:46 Basophils # (Manual) 0.1 K/mm3 (0.0-0.1) 04/20/19 12:46 Metamyelocytes # 0.0 K/mm3 04/20/19 12:46 Myelocytes # 0.0 K/mm3 04/20/19 12:46 Promyelocytes # 0.0 K/mm3 04/20/19 12:46 Blast Cells # 0.0 K/mm3 04/20/19 12:46 WBC Morphology Not Reportable 04/20/19 12:46 Hypersegmented Neuts Not Reportable 04/20/19 12:46 Hyposegmented Neuts Not Reportable 04/20/19 12:46 Hypogranular Neuts Not Reportable 04/20/19 12:46 Smudge Cells Not Reportable 04/20/19 12:46 Toxic Granulation Not Reportable 04/20/19 12:46 Toxic Vacuolation Not Reportable 04/20/19 12:46 Dohle Bodies Not Reportable 04/20/19 12:46 Pelger-Huet Anomaly Not Reportable 04/20/19 12:46 Esther Rods Not Reportable 04/20/19 12:46 Platelet Estimate Cons 04/20/19 12:46 Clumped Platelets Not Reportable 04/20/19 12:46 Plt Clumps, EDTA Not Reportable 04/20/19 12:46 Large Platelets Few 04/20/19 12:46 Giant Platelets Not Reportable 04/20/19 12:46 Platelet Satelliting Not Reportable 04/20/19 12:46 Plt Morphology Comment Not Reportable 04/20/19 12:46 RBC Morphology Not Reportable 04/20/19 12:46 Dimorphic RBCs Not Reportable 04/20/19 12:46 Polychromasia Not Reportable 04/20/19 12:46 Hypochromasia Few 04/20/19 12:46 Poikilocytosis Not Reportable 04/20/19 12:46 Anisocytosis Not Reportable 04/20/19 12:46 Microcytosis Not Reportable 04/20/19 12:46 Macrocytosis Not Reportable 04/20/19 12:46 Spherocytes Not Reportable 04/20/19 12:46 Pappenheimer Bodies Not Reportable 04/20/19 12:46 Sickle Cells Not Reportable 04/20/19 12:46 Target Cells Few 04/20/19 12:46 Tear Drop Cells Not Reportable 04/20/19 12:46 Ovalocytes Not Reportable 04/20/19 12:46 Helmet Cells Not Reportable 04/20/19 12:46 [place] Bodies Not Reportable 04/20/19 12:46 [place] Rings Not Reportable 04/20/19 12:46 [place] Cells Not Reportable 04/20/19 12:46 Bite Cells Not Reportable 04/20/19 12:46 Crenated Cell Not Reportable 04/20/19 12:46 Elliptocytes Not Reportable 04/20/19 12:46 Acanthocytes (Spur) Not Reportable 04/20/19 12:46 Rouleaux Not Reportable 04/20/19 12:46 Hemoglobin C Crystals Not Reportable 04/20/19 12:46 Schistocytes Not Reportable 04/20/19 12:46 Malaria parasites Not Reportable 04/20/19 12:46 Bubba Bodies Not Reportable 04/20/19 12:46 Hem Pathologist Commnt No 04/20/19 12:46 PT 12.7 Sec. (12.2-14.9) 04/20/19 12:46 PT 13.0 Sec. (12.2-14.9) 04/20/19 12:46 INR 0.94 (0.87-1.13) 04/20/19 12:46 INR 0.97 (0.87-1.13) 04/20/19 12:46 APTT 26.8 Sec. (24.2-36.6) 04/20/19 12:46 APTT 26.8 Sec. (24.2-36.6) 04/20/19 12:46 D-Dimer 398.33 ng/mlDDU (0-234) H 04/20/19 12:46 Sodium 132 mmol/L (137-145) L 04/20/19 12:46 Potassium 3.9 mmol/L (3.6-5.0) 04/20/19 12:46 Chloride 94.5 mmol/L (98-107) L 04/20/19 12:46 Carbon Dioxide 17 mmol/L (22-30) L 04/20/19 12:46 Anion Gap 24 mmol/L 04/20/19 12:46 BUN 9 mg/dL (9-20) 04/20/19 12:46 Creatinine 0.7 mg/dL (0.8-1.5) L 04/20/19 12:46 Estimated GFR > 60 ml/min 04/20/19 12:46 BUN/Creatinine Ratio 13 % 04/20/19 12:46 Glucose 87 mg/dL (75-100) 04/20/19 12:46 Calcium 9.0 mg/dL (8.4-10.2) 04/20/19 12:46 Phosphorus 2.40 mg/dL (2.5-4.5) L 04/20/19 12:46 Magnesium 1.70 mg/dL (1.7-2.3) 04/20/19 12:46 Total Bilirubin 0.50 mg/dL (0.1-1.2) 04/20/19 12:46 AST 72 units/L (5-40) H 04/20/19 12:46 ALT 45 units/L (7-56) 04/20/19 12:46 Alkaline Phosphatase 56 units/L (35-129) 04/20/19 12:46 Total Creatine Kinase 366 units/L (55-170) H 04/20/19 12:46 CK-MB (CK-2) 3.9 ng/mL (0.0-4.0) 04/20/19 12:46 CK-MB (CK-2) Rel Index 1.0 (0-4) 04/20/19 12:46 Troponin T < 0.010 ng/mL (0.00-0.029) 04/20/19 12:46 NT-Pro-B Natriuret Pep 61.18 pg/mL (0-900) 04/20/19 12:46 Total Protein 8.0 g/dL (6.3-8.2) 04/20/19 12:46 Albumin 4.0 g/dL (3.9-5) 04/20/19 12:46 Albumin/Globulin Ratio 1.0 % 04/20/19 12:46 TSH 1.430 mlU/mL (0.270-4.200) 04/20/19 12:46 Urine Color Yellow (Yellow) 04/20/19 Unknown Urine Turbidity Clear (Clear) 04/20/19 Unknown Urine pH 5.0 (5.0-7.0) 04/20/19 Unknown Ur Specific [place] 1.019 (1.003-1.030) 04/20/19 Unknown Urine Protein 30 mg/dl mg/dL (Negative) 04/20/19 Unknown Urine Glucose (UA) Neg mg/dL (Negative) 04/20/19 Unknown Urine Ketones 80 mg/dL (Negative) 04/20/19 Unknown Urine Blood Sm (Negative) 04/20/19 Unknown Urine Nitrite Neg (Negative) 04/20/19 Unknown Urine Bilirubin Neg (Negative) 04/20/19 Unknown Urine Urobilinogen < 2.0 mg/dL (<2.0) 04/20/19 Unknown Ur Leukocyte Esterase Neg (Negative) 04/20/19 Unknown Urine WBC (Auto) < 1.0 /HPF (0.0-6.0) 04/20/19 Unknown Urine RBC (Auto) 1.0 /HPF (0.0-6.0) 04/20/19 Unknown Urine Mucus Few /HPF 04/20/19 Unknown Urine Opiates Screen Presumptive negative 04/20/19 Unknown Urine Methadone Screen Presumptive negative 04/20/19 Unknown Ur Barbiturates Screen Presumptive negative 04/20/19 Unknown Ur Phencyclidine Scrn Presumptive negative 04/20/19 Unknown Ur Amphetamines Screen Presumptive negative 04/20/19 Unknown U Benzodiazepines Scrn Presumptive negative 04/20/19 Unknown Urine Cocaine Screen Presumptive negative 04/20/19 Unknown U Marijuana (THC) Screen Presumptive negative 04/20/19 Unknown Drugs of Abuse Note Disclamer 04/20/19 Unknown Plasma/Serum Alcohol < 0.01 % (0-0.07) 04/20/19 12:59 Assessment and Plan Assessment and plan: Accelerated hypertension. Patient will be maintained on nicardipine drip for now. We will start p.o. medications and begin weaning. Medical noncompliance. Patient has been counseled on importance of taking medications. Lumbar spondylosis. PT/OT evaluation. ? Syncope. Check echocardiogram and carotid ultrasound.
[2019-04-20] MEDS ORDERED: ONDANSETRON 4 MG/2 ML INJ IV PRN (15:11)
[2019-04-20] MEDS ORDERED: ACETAMINOPHEN 325 MG TAB PO PRN (15:11)
[2019-04-20 16:11] LABS: Basophils # (Auto) 0.1 K/mm3 (0.0-0.1); Basophils % (Auto) 1.2 % (0.0-1.8); Eosinophils % (Auto) 0.1 % (0.0-4.3); Hematocrit 39.5 % (35.5-45.6); Hemoglobin 12.4 gm/dl (11.8-15.2); Lymphocytes # (Auto) 1.2 K/mm3 (1.2-5.4); Mean Corpuscular HGB Conc 31 % (32-34); Mean Corpuscular Volume 75 fl (84-94); Monocytes # (Auto) 0.8 K/mm3 (0.0-0.8); Monocytes % (Auto) 14.5 % (0.0-7.3); Platelet Count 314 K/mm3 (140-440); Red Blood Count 5.29 M/mm3 (3.65-5.03); Red Cell Distribution Width 18.7 % (13.2-15.2)
[2019-04-20 16:30] LABS: BUN/Creatinine Ratio 14; Blood Urea Nitrogen 11 mg/dL (9-20); Calcium 9.1 mg/dL (8.4-10.2); Hemolysis Index 0
--- NOTE | 2019-04-20 16:52 | Cat Scan Report ---
CTA CHEST WITH IV CONTRAST INDICATION: Chest Pain. TECHNIQUE: Axial CT images were obtained through the chest after injection of 100 cc Omnipaque 350 IV contrast. 3 plane MIP reconstructions were produced. All CT scans at this location are performed using CT dose reduction for ALARA by means of automated exposure control. COMPARISON: CTA chest 09/06/2017 FINDINGS: PULMONARY ARTERIES: No pulmonary emboli. THORACIC AORTA: No acute abnormality. HEART: Normal. CORONARY ARTERIES: No significant calcification. PLEURA: No pleural effusion. No pneumothorax. LYMPH NODES: No significant adenopathy. LUNGS: No acute air space or interstitial disease. Calcified right upper lobe granuloma. ADDITIONAL FINDINGS: None. UPPER ABDOMEN: Marked decrease attenuation is seen throughout liver characteristic for steatosis. SKELETAL STRUCTURES: No significant osseous abnormality. IMPRESSION: 1. No CT evidence for pulmonary embolism. 2. Marked hepatic steatosis and prior granulomatous disease Signer Name: Mariano Wolf MD Signed: 04/20/2019 4:48 PM Workstation Name: [id number]
--- NOTE | 2019-04-20 17:20 | Cat Scan Report ---
CTA ABDOMEN AND PELVIS WITHOUT AND WITH IV CONTRAST INDICATION: MAIN: Chest Pain AND ABD PAIN OMNIPAQUE 350 100ML. TECHNIQUE: Axial CT images were obtained through the abdomen and pelvis before and after after injection of 100 cc Omnipaque 350 IV contrast. 3 plane MIP reconstructions were produced. All CT scans at this [facility] are performed using CT dose reduction for ALARA by means of automated exposure control. COMPARISON: CT abdomen pelvis 12/06/2017 FINDINGS: Aorta: Moderate vascular calcifications within nonaneurysmal abdominal aorta. Renal arteries: Single bilateral renal arteries. No acute abnormality. Celiac artery: No acute abnormality. Superior mesenteric artery: No acute abnormality. Inferior mesenteric artery: No acute abnormality. Right iliac arteries: Extensive vascular calcifications without occlusive disease or dissection. Left iliac arteries: Markedly tortuous left iliac arteries with extensive vascular calcifications. No dissection or aneurysm. CT abdomen: Extensive decreased attenuation is seen throughout liver characteristic for steatosis. Ga llbladder, pancreas, spleen, adrenals and kidneys appear within normal limits. CT PELVIS: The large and small bowel appear within normal limits without obstruction or ileus. The ap pendix is normal. Prostate, bladder and distal ureters are unremarkable. No free fluid or adenopathy is seen. Skeletal Structures: Moderate degenerative changes of lumbar spine. Mild degenerative changes of both hips. IMPRESSION: 1. No CTA evidence for abdominal aortic aneurysm, dissection. 2. Extensive vascular calcifications throughout distal abdominal aorta and both iliac arteries withou t hemodynamically significant stenosis or occlusive disease. 3. Marked hepatic steatosis. Signer Name: Mariano Wolf MD Signed: 04/20/2019 5:16 PM Workstation Name: [id number]
[2019-04-20] MEDS ORDERED: carvediloL 6.25 MG TAB ONE (18:40)
[2019-04-20] MEDS ORDERED: ASPIRIN 325 MG TAB ONE (18:40)
[2019-04-20] MEDS: carvediloL 12.5 MG TAB PO SCH ×2 (18:45→22:41)
[2019-04-20] MEDS: PANTOPRAZOLE 40 MG TAB PO SCH (22:41)
[2019-04-21] MEDS: amLODIPine 10 MG TAB PO SCH (09:02)
[2019-04-21] MEDS: hydroCHLOROthiazide 25 MG TAB PO SCH (09:02)
[2019-04-21] MEDS: PANTOPRAZOLE 40 MG TAB PO SCH ×2 (09:03→21:40)
[2019-04-21] MEDS: carvediloL 12.5 MG TAB PO SCH (09:03)
[2019-04-21 09:51] LABS: Hematocrit 38.3 % (35.5-45.6); Hemoglobin 12.2 gm/dl (11.8-15.2); Mean Corpuscular HGB Conc 32 % (32-34); Mean Corpuscular Volume 74 fl (84-94); Platelet Count 323 K/mm3 (140-440); Red Blood Count 5.15 M/mm3 (3.65-5.03); Red Cell Distribution Width 18.8 % (13.2-15.2)
[2019-04-21] MEDS ORDERED: LISINOPRIL 10 MG TAB PO SCH ×2 (10:00→10:53)
[2019-04-21] MEDS ORDERED: NON-FORMULARY EACH (Lisinopril [Zestril Tab] 30 MG) PO SCH (10:00)
[2019-04-21 10:08] LABS: BUN/Creatinine Ratio 12; Blood Urea Nitrogen 11 mg/dL (9-20); Hemolysis Index 2
[2019-04-21] MEDS ORDERED: REGADENOSON 0.4 MG/5 ML INJ IV ONE (10:26)
--- NOTE | 2019-04-21 10:37 | Consultation ---
History of Present Illness Consult date: 04/21/19 Requesting physician: GILA ARREGUIN Consult reason: chest pain, syncope History of present illness: The pt is a 54-year-old male with a past medical history significant for nonobstructive CAD, hypertension, recurrent chest pain, noncompliant with medication, fETOH use, tobacco use. He has been seen by our practice on prior hospitalization but has been noncompliant with OP follow up. He presented with c/o syncope and chest pain yesterday. He states that he was sitting at a park on a bench yesterday when be suddenly developed chest pain and then "passed out". When he awoke, he felt disoriented. He describes his chest pain as a nonexertional, nonradiating, left-sided chest pressure which was associated with SOB. The pain has subsequently resolved. He denies any palpitations, n/v, diaphoresis or dizziness. The pt has a history of homelessness and is still homeless. He has not taken any prescription medications due to financial issues. BP on arrival 193/141. Echo done 07/2017 showed EF 50-55%, impaired relaxation. LHC done 10/2017 showed RCA mid 20% lesion, otherwise normal coronaries. Past History Past Medical History: other (as per HPI) Past Surgical History: No surgical history Social history: smoking, alcohol abuse Family history: no significant family history Medications and Allergies Allergies Allergy/AdvReac Type Severity Reaction Status Date / Time No Known Allergies Allergy Verified 07/09/17 22:12 Home Medications Medication Instructions Recorded Confirmed Last Taken Type ISOSORBIDE MONOnitrate [Imdur ER] 30 mg PO QDAY #30 tablet 12/09/17 03/22/19 Unknown Rx Pantoprazole [Protonix TAB] 40 mg PO BID #60 tablet 12/09/17 03/22/19 Unknown Rx amLODIPine 10 mg PO QDAY #30 tablet 12/09/17 03/22/19 Unknown Rx carvediloL [Coreg] 12.5 mg PO BID #60 tablet 12/09/17 03/22/19 Unknown Rx lisinopriL [Zestril TAB] 20 mg PO QDAY #30 tablet 12/09/17 03/22/19 Unknown Rx hydroCHLOROthiazide [HCTZ] 25 mg PO QDAY #30 tablet 08/24/18 03/22/19 Unknown Rx Lisinopril [Zestril TAB] 30 mg PO QDAY #30 tab 03/23/19 Unknown Rx amLODIPine 10 mg PO DAILY #30 tab 03/23/19 Unknown Rx hydroCHLOROthiazide [HCTZ] 25 mg PO QDAY #30 tablet 03/23/19 Unknown Rx Active Meds: Active Medications Acetaminophen (Tylenol) 650 mg PO Q4H PRN PRN Reason: Pain MILD(1-3)/Fever >100.5/LUCERO Amlodipine Besylate (Amlodipine) 10 mg PO DAILY [facility] Last Admin: 04/21/19 09:02 Dose: 10 mg Documented by: Carvedilol (Coreg) 12.5 mg PO BID [facility] Last Admin: 04/21/19 09:03 Dose: 12.5 mg Documented by: Hydrochlorothiazide (Hctz) 25 mg PO QDAY [facility] Last Admin: 04/21/19 09:02 Dose: 25 mg Documented by: Nicardipine HCl 50 mg/ Sodium (Chloride) 250 mls @ 25 mls/hr IV TITR [facility]; Protocol Last Admin: 04/20/19 16:30 Dose: 5 mg/hr, 25 mls/hr Documented by: Isosorbide Mononitrate (Imdur) 30 mg PO QDAY [facility] Last Admin: 04/21/19 09:02 Dose: 30 mg Documented by: Lisinopril (Zestril) 30 mg PO QDAY [facility] Last Admin: 04/21/19 09:03 Dose: 30 mg Documented by: Ondansetron HCl (Zofran) 4 mg IV Q8H PRN PRN Reason: Nausea And Vomiting Pantoprazole Sodium (Protonix) 40 mg PO BID [facility] Last Admin: 04/21/19 09:03 Dose: 40 mg Documented by: Sodium Chloride (Sodium Chloride Flush Syringe 10 Ml) 10 ml IV BID [facility] Last Admin: 04/21/19 09:03 Dose: 10 ml Documented by: Sodium Chloride (Sodium Chloride Flush Syringe 10 Ml) 10 ml IV PRN PRN PRN Reason: LINE FLUSH Sodium Chloride (Sodium Chloride Flush Syringe 10 Ml) 10 ml IV PRN PRN PRN Reason: LINE FLUSH Review of Systems Constitutional: no weight loss, no weight gain, no fever, no chills, no sweats Ears, nose, mouth and throat: no ear pain, no nose pain, no nasal congestion, no sinus pressure, no sinus pain Cardiovascular: chest pain, syncope, shortness of breath, high blood pressure, no orthopnea, no palpitations, no rapid/irregular heart beat, no edema, no lightheadedness Respiratory: shortness of breath, no cough, no congestion, no wheezing, no pain on inspiration Gastrointestinal: no abdominal pain, no nausea, no vomiting, no diarrhea, no constipation, no change in bowel habits Genitourinary Male: no dysuria, no hematuria, no flank pain, no discharge, no urinary frequency, no urinary hesitancy Musculoskeletal: no neck stiffness, no neck pain, no shooting arm pain, no arm numbness/tingling, no low back pain Integumentary: no rash, no pruritis, no redness, no sores, no wounds Neurological: syncope, no head injury, no paralysis, no weakness, no parathesias, no numbness, no tingling, no seizures Psychiatric: no anxiety Endocrine: no cold intolerance, no heat intolerance Hematologic/Lymphatic: no easy bruising, no easy bleeding Allergic/Immunologic: no urticaria, no wheezing Physical Examination Vital Signs Temp Pulse Resp BP Pulse Ox 98.3 F 97 H 22 193/141 98 04/20/19 12:25 04/20/19 12:25 04/20/19 12:25 04/20/19 12:25 04/20/19 12:25 General appearance: no acute distress HEENT: Positive: PERRL, Normocephaly, Mucus Membranes Moist Neck: Positive: neck supple, trachea midline Cardiac: Positive: Reg Rate and Rhythm, S1/S2 Lungs: Positive: Decreased Breath Sounds Neuro: Positive: Grossly Intact Abdomen: Negative: Tender Skin: Negative: Rash Musculoskeletal: No Pain Extremities: Absent: edema Results 04/21/19 07:52 04/21/19 07:52 Cardiac Enzymes 04/20/19 04/20/19 Range/Units 12:46 12:46 AST 72 H (5-40) units/L CK-MB (CK-2) 3.9 (0.0-4.0) ng/mL Coagulation 04/20/19 04/20/19 Range/Units 12:46 12:46 PT 13.0 12.7 (12.2-14.9) Sec. INR 0.97 0.94 (0.87-1.13) APTT 26.8 26.8 (24.2-36.6) Sec. CBC 04/20/19 04/20/19 04/21/19 Range/Units 12:46 15:27 07:52 WBC 5.5 5.8 4.5 (4.5-11.0) K/mm3 RBC 5.72 H 5.29 H 5.15 H (3.65-5.03) M/mm3 Hgb 13.4 12.4 12.2 (11.8-15.2) gm/dl Hct 42.1 39.5 38.3 (35.5-45.6) % Plt Count 353 314 323 (140-440) K/mm3 Lymph # 1.2 (1.2-5.4) K/mm3 [place] # 0.8 (0.0-0.8) K/mm3 Eos # 0.0 (0.0-0.4) K/mm3 Baso # 0.1 (0.0-0.1) K/mm3 Comprehensive Metabolic Panel 04/20/19 04/20/19 04/21/19 Range/Units 12:46 15:27 07:52 Sodium 132 L 135 L 137 (137-145) mmol/L Potassium 3.9 4.0 3.8 (3.6-5.0) mmol/L Chloride 94.5 L 97.6 L 99.5 (98-107) mmol/L Carbon Dioxide 17 L 22 22 (22-30) mmol/L BUN 9 11 11 (9-20) mg/dL Creatinine 0.7 L 0.8 0.9 (0.8-1.5) mg/dL Glucose 87 113 H 83 (75-100) mg/dL Calcium 9.0 9.1 9.0 (8.4-10.2) mg/dL AST 72 H (5-40) units/L ALT 45 (7-56) units/L Alkaline Phosphatase 56 (35-129) units/L Total Protein 8.0 (6.3-8.2) g/dL Albumin 4.0 (3.9-5) g/dL - Imaging and Cardiology Echo: report reviewed ( 07/2017 showed EF 50-55%, impaired relaxation. ) Cardiac cath: report reviewed ( 10/2017 showed RCA mid 20% lesion, otherwise normal coronaries. ) EKG: report reviewed, image reviewed EKG interpretations - Telemetry EKG Rhythm: Sinus Rhythm - EKG Sinus rhythms and dysrhythmias: sinus rhythm Repolarization changes or abnormalities: nonspecific abnormality, ST segment, and/or T wave Assessment and Plan Head CT with NAF. Chest CTA negative for PE. Optimize anti-hypertensive regimen. Proceed with lexiscan MPI stress test. Await findings. The patient has been seen in conjunction with Dr. Kristine Mahajan who agrees with the assessment and plan of care. - Patient Problems (1) Chest pain Current Visit: Yes Status: Acute Qualifiers: Chest pain type: unspecified Qualified Code(s): R07.9 - Chest pain, unspecified (2) Syncope Current Visit: Yes Status: Acute Qualifiers: Syncope type: unspecified Qualified Code(s): R55 - Syncope and collapse (3) Uncontrolled hypertension Current Visit: Yes Status: Chronic (4) Nonobstructive atherosclerosis of coronary artery Current Visit: Yes Status: Chronic (5) History of ETOH abuse Current Visit: Yes Status: Chronic (6) Tobacco use Current Visit: Yes Status: Chronic
--- NOTE | 2019-04-21 10:50 | Progress Note ---
Assessment and Plan Assessment and plan: Accelerated hypertension. Nicardipine drip has been weaned off. Continue p.o. antihypertensive medications Medical noncompliance. Patient has been counseled on importance of taking medications. Lumbar spondylosis. PT/OT evaluation. ? Syncope. Check echocardiogram and carotid ultrasound. LHC done 10/2017 showed RCA mid 20% lesion, otherwise normal coronaries. Echo done 07/2017 showed EF 50-55%, impaired relaxation. Chest pain. Defer to cardiology for any ischemic evaluation. Patient with LHC October 2017 as noted above. History Interval history: No new issues overnight. Patient still complains of chest pain. Hospitalist Physical - Constitutional Vitals: Temp Pulse Resp BP Pulse Ox 98.4 F 73 20 163/104 93 04/21/19 05:43 04/21/19 05:43 04/21/19 05:43 04/21/19 05:43 04/21/19 05:43 General appearance: Present: no acute distress, well-nourished - EENT Eyes: Present: PERRL, EOM intact ENT: hearing intact, clear oral mucosa, dentition normal - Neck Neck: Present: supple, normal ROM - Respiratory Respiratory effort: normal Respiratory: bilateral: CTA - Cardiovascular Rhythm: regular Heart Sounds: Present: S1 & S2. Absent: gallop, rub - Extremities Extremities: no ischemia, No edema, Full ROM - Abdominal General gastrointestinal: soft, non-tender, non-distended, normal bowel sounds - Integumentary Integumentary: Present: clear, warm, dry - Neurologic Neurologic: CNII-XII intact, moves all extremities Results - Labs CBC & Chem 7: 04/21/19 07:52 04/21/19 07:52 Labs: Laboratory Last Values WBC 4.5 K/mm3 (4.5-11.0) 04/21/19 07:52 RBC 5.15 M/mm3 (3.65-5.03) H 04/21/19 07:52 Hgb 12.2 gm/dl (11.8-15.2) 04/21/19 07:52 Hct 38.3 % (35.5-45.6) 04/21/19 07:52 MCV 74 fl (84-94) L 04/21/19 07:52 MCH 24 pg (28-32) L 04/21/19 07:52 MCHC 32 % (32-34) 04/21/19 07:52 RDW 18.8 % (13.2-15.2) H 04/21/19 07:52 Plt Count 323 K/mm3 (140-440) 04/21/19 07:52 Lymph % (Auto) 21.0 % (13.4-35.0) 04/20/19 15:27 [place] % (Auto) 14.5 % (0.0-7.3) H 04/20/19 15:27 Eos % (Auto) 0.1 % (0.0-4.3) 04/20/19 15:27 Baso % (Auto) 1.2 % (0.0-1.8) 04/20/19 15:27 Lymph # 1.2 K/mm3 (1.2-5.4) 04/20/19 15:27 [place] # 0.8 K/mm3 (0.0-0.8) 04/20/19 15:27 Eos # 0.0 K/mm3 (0.0-0.4) 04/20/19 15:27 Baso # 0.1 K/mm3 (0.0-0.1) 04/20/19 15:27 Add Manual Diff Complete 04/20/19 12:46 Total Counted 100 04/20/19 12:46 Seg Neutrophils % Boiler [employer] Tester 04/21/19 07:52 Seg Neuts % (Manual) 69.0 % (40.0-70.0) 04/20/19 12:46 Band Neutrophils % 0 % 04/20/19 12:46 Lymphocytes % (Manual) 16.0 % (13.4-35.0) 04/20/19 12:46 Reactive Lymphs % (Man) 0 % 04/20/19 12:46 Monocytes % (Manual) 14.0 % (0.0-7.3) H 04/20/19 12:46 Eosinophils % (Manual) 0 % (0.0-4.3) 04/20/19 12:46 Basophils % (Manual) 1.0 % (0.0-1.8) 04/20/19 12:46 Metamyelocytes % 0 % 04/20/19 12:46 Myelocytes % 0 % 04/20/19 12:46 Promyelocytes % 0 % 04/20/19 12:46 Blast Cells % 0 % 04/20/19 12:46 Nucleated RBC % Not Reportable 04/20/19 12:46 Seg Neutrophils # 3.6 K/mm3 (1.8-7.7) 04/20/19 15:27 Seg Neutrophils # Man 3.8 K/mm3 (1.8-7.7) 04/20/19 12:46 Band Neutrophils # 0.0 K/mm3 04/20/19 12:46 Lymphocytes # (Manual) 0.9 K/mm3 (1.2-5.4) L 04/20/19 12:46 Abs React Lymphs (Man) 0.0 K/mm3 04/20/19 12:46 Monocytes # (Manual) 0.8 K/mm3 (0.0-0.8) 04/20/19 12:46 Eosinophils # (Manual) 0.0 K/mm3 (0.0-0.4) 04/20/19 12:46 Basophils # (Manual) 0.1 K/mm3 (0.0-0.1) 04/20/19 12:46 Metamyelocytes # 0.0 K/mm3 04/20/19 12:46 Myelocytes # 0.0 K/mm3 04/20/19 12:46 Promyelocytes # 0.0 K/mm3 04/20/19 12:46 Blast Cells # 0.0 K/mm3 04/20/19 12:46 WBC Morphology Not Reportable 04/20/19 12:46 Hypersegmented Neuts Not Reportable 04/20/19 12:46 Hyposegmented Neuts Not Reportable 04/20/19 12:46 Hypogranular Neuts Not Reportable 04/20/19 12:46 Smudge Cells Not Reportable 04/20/19 12:46 Toxic Granulation Not Reportable 04/20/19 12:46 Toxic Vacuolation Not Reportable 04/20/19 12:46 Dohle Bodies Not Reportable 04/20/19 12:46 Pelger-Huet Anomaly Not Reportable 04/20/19 12:46 Esther Rods Not Reportable 04/20/19 12:46 Platelet Estimate Cons 04/20/19 12:46 Clumped Platelets Not Reportable 04/20/19 12:46 Plt Clumps, EDTA Not Reportable 04/20/19 12:46 Large Platelets Few 04/20/19 12:46 Giant Platelets Not Reportable 04/20/19 12:46 Platelet Satelliting Not Reportable 04/20/19 12:46 Plt Morphology Comment Not Reportable 04/20/19 12:46 RBC Morphology Not Reportable 04/20/19 12:46 Dimorphic RBCs Not Reportable 04/20/19 12:46 Polychromasia Not Reportable 04/20/19 12:46 Hypochromasia Few 04/20/19 12:46 Poikilocytosis Not Reportable 04/20/19 12:46 Anisocytosis Not Reportable 04/20/19 12:46 Microcytosis Not Reportable 04/20/19 12:46 Macrocytosis Not Reportable 04/20/19 12:46 Spherocytes Not Reportable 04/20/19 12:46 Pappenheimer Bodies Not Reportable 04/20/19 12:46 Sickle Cells Not Reportable 04/20/19 12:46 Target Cells Few 04/20/19 12:46 Tear Drop Cells Not Reportable 04/20/19 12:46 Ovalocytes Not Reportable 04/20/19 12:46 Helmet Cells Not Reportable 04/20/19 12:46 Wilson-Tasley Bodies Not Reportable 04/20/19 12:46 [place] Rings Not Reportable 04/20/19 12:46 Davon Cells Not Reportable 04/20/19 12:46 Bite Cells Not Reportable 04/20/19 12:46 Crenated Cell Not Reportable 04/20/19 12:46 Elliptocytes Not Reportable 04/20/19 12:46 Acanthocytes (Spur) Not Reportable 04/20/19 12:46 Rouleaux Not Reportable 04/20/19 12:46 Hemoglobin C Crystals Not Reportable 04/20/19 12:46 Schistocytes Not Reportable 04/20/19 12:46 Malaria parasites Not Reportable 04/20/19 12:46 Bubba Bodies Not Reportable 04/20/19 12:46 Hem Pathologist Commnt No 04/20/19 12:46 PT 12.7 Sec. (12.2-14.9) 04/20/19 12:46 PT 13.0 Sec. (12.2-14.9) 04/20/19 12:46 INR 0.94 (0.87-1.13) 04/20/19 12:46 INR 0.97 (0.87-1.13) 04/20/19 12:46 APTT 26.8 Sec. (24.2-36.6) 04/20/19 12:46 APTT 26.8 Sec. (24.2-36.6) 04/20/19 12:46 D-Dimer 398.33 ng/mlDDU (0-234) H 04/20/19 12:46 Sodium 137 mmol/L (137-145) 04/21/19 07:52 Potassium 3.8 mmol/L (3.6-5.0) 04/21/19 07:52 Chloride 99.5 mmol/L (98-107) 04/21/19 07:52 Carbon Dioxide 22 mmol/L (22-30) 04/21/19 07:52 Anion Gap 19 mmol/L 04/21/19 07:52 BUN 11 mg/dL (9-20) 04/21/19 07:52 Creatinine 0.9 mg/dL (0.8-1.5) 04/21/19 07:52 Estimated GFR > 60 ml/min 04/21/19 07:52 BUN/Creatinine Ratio 12 % 04/21/19 07:52 Glucose 83 mg/dL (75-100) 04/21/19 07:52 Calcium 9.0 mg/dL (8.4-10.2) 04/21/19 07:52 Phosphorus 2.40 mg/dL (2.5-4.5) L 04/20/19 12:46 Magnesium 1.70 mg/dL (1.7-2.3) 04/20/19 12:46 Total Bilirubin 0.50 mg/dL (0.1-1.2) 04/20/19 12:46 AST 72 units/L (5-40) H 04/20/19 12:46 ALT 45 units/L (7-56) 04/20/19 12:46 Alkaline Phosphatase 56 units/L (35-129) 04/20/19 12:46 Total Creatine Kinase 366 units/L (55-170) H 04/20/19 12:46 CK-MB (CK-2) 3.9 ng/mL (0.0-4.0) 04/20/19 12:46 CK-MB (CK-2) Rel Index 1.0 (0-4) 04/20/19 12:46 Troponin T < 0.010 ng/mL (0.00-0.029) 04/20/19 15:27 NT-Pro-B Natriuret Pep 61.18 pg/mL (0-900) 04/20/19 12:46 Total Protein 8.0 g/dL (6.3-8.2) 04/20/19 12:46 Albumin 4.0 g/dL (3.9-5) 04/20/19 12:46 Albumin/Globulin Ratio 1.0 % 04/20/19 12:46 TSH 1.430 mlU/mL (0.270-4.200) 04/20/19 12:46 Urine Color Yellow (Yellow) 04/20/19 Unknown Urine Turbidity Clear (Clear) 04/20/19 Unknown Urine pH 5.0 (5.0-7.0) 04/20/19 Unknown Ur Specific [place] 1.019 (1.003-1.030) 04/20/19 Unknown Urine Protein 30 mg/dl mg/dL (Negative) 04/20/19 Unknown Urine Glucose (UA) Neg mg/dL (Negative) 04/20/19 Unknown Urine Ketones 80 mg/dL (Negative) 04/20/19 Unknown Urine Blood Sm (Negative) 04/20/19 Unknown Urine Nitrite Neg (Negative) 04/20/19 Unknown Urine Bilirubin Neg (Negative) 04/20/19 Unknown Urine Urobilinogen < 2.0 mg/dL (<2.0) 04/20/19 Unknown Ur Leukocyte Esterase Neg (Negative) 04/20/19 Unknown Urine WBC (Auto) < 1.0 /HPF (0.0-6.0) 04/20/19 Unknown Urine RBC (Auto) 1.0 /HPF (0.0-6.0) 04/20/19 Unknown Urine Mucus Few /HPF 04/20/19 Unknown Urine Opiates Screen Presumptive negative 04/20/19 Unknown Urine Methadone Screen Presumptive negative 04/20/19 Unknown Ur Barbiturates Screen Presumptive negative 04/20/19 Unknown Ur Phencyclidine Scrn Presumptive negative 04/20/19 Unknown Ur Amphetamines Screen Presumptive negative 04/20/19 Unknown U Benzodiazepines Scrn Presumptive negative 04/20/19 Unknown Urine Cocaine Screen Presumptive negative 04/20/19 Unknown U Marijuana (THC) Screen Presumptive negative 04/20/19 Unknown Drugs of Abuse Note Disclamer 04/20/19 Unknown Plasma/Serum Alcohol < 0.01 % (0-0.07) 04/20/19 12:59 Active Medications - Current Medications Current Medications: Generic Name Dose Route Start Last Admin Trade Name Freq PRN Reason Stop Dose Admin Acetaminophen 650 mg 04/20/19 15:11 Tylenol PO Q4H PRN Pain MILD(1-3)/Fever >100.5/LUCERO Amlodipine Besylate 10 mg 04/21/19 10:00 04/21/19 09:02 Amlodipine PO 10 mg DAILY [facility] Administration Carvedilol 12.5 mg 04/20/19 22:00 04/21/19 09:03 Coreg PO 12.5 mg BID [facility] Administration Hydrochlorothiazide 25 mg 04/21/19 10:00 04/21/19 09:02 Hctz PO 25 mg QDAY [facility] Administration Nicardipine HCl 50 mg/ Sodium 250 mls @ 25 mls/hr 04/20/19 15:00 04/20/19 16:30 Chloride IV 5 mg/hr TITR [facility] 25 mls/hr Administration Protocol 5 MG/HR Isosorbide Mononitrate 30 mg 04/21/19 10:00 04/21/19 09:02 Imdur PO 30 mg QDAY [facility] Administration Lisinopril 30 mg 04/21/19 10:00 04/21/19 09:03 Zestril PO 30 mg QDAY [facility] Administration Ondansetron HCl 4 mg 04/20/19 15:11 Zofran IV Q8H PRN Nausea And Vomiting Pantoprazole Sodium 40 mg 04/20/19 22:00 04/21/19 09:03 Protonix PO 40 mg BID [facility] Administration Sodium Chloride 10 ml 04/20/19 22:00 04/21/19 09:03 Sodium Chloride Flush Syringe 10 Ml IV 10 ml BID [facility] Administration Sodium Chloride 10 ml 04/20/19 15:11 Sodium Chloride Flush Syringe 10 Ml IV PRN PRN LINE FLUSH Sodium Chloride 10 ml 04/20/19 15:11 Sodium Chloride Flush Syringe 10 Ml IV PRN PRN LINE FLUSH
[2019-04-21] MEDS ORDERED: LISINOPRIL 10 MG TAB PO ONE (12:00)
--- NOTE | 2019-04-21 13:29 | Event Note ---
Date: 04/21/19 S/p lexiscan MPI stress test this AM which was negative. Pt was noted to have transient Wenckebach overnight. D/c coreg and cont to monitor on telemetry. Await echo. Mary HERRERA NP / DR. Kristine HODGSON
[2019-04-21 14:04] LABS: Anisocytosis 1+; Hypochromasia 1+; Macrocytosis Few; Platelet Estimate Consistent w Auto; Target Cells Rare; Total Cells Counted 100
--- NOTE | 2019-04-22 00:27 | Treadmill Report ---
REFERRING PHYSICIAN: Hospitalist Service. PROTOCOL: The patient was assessed in a postabsorptive state, given 10 mCi of technetium 99m at rest. The patient underwent rest imaging. The patient underwent Lexiscan stress test. At peak stress, the patient was given 26 mCi of technetium 99m. Shortly thereafter, the patient underwent stress imaging. Raw imaging reveals mild GI artifact, no significant motion artifact. SPECT images examined carefully in horizontal long axis, vertical long axis, short axis views. There is normal mitral uptake of radioisotope in all parts segments. No evidence of significant fixed or reversible perfusion defects suggestive of prior infarction or ischemia. Gated wall motion reveals normal systolic thickening, calculated ejection fraction of 54%. No TID. CONCLUSIONS: 1. Normal myocardial perfusion scan without evidence of active ischemia or prior infarction. 2. Normal left ventricular systolic performance without evidence of transient ischemic dilatation or stress-induced segmental wall motion abnormalities. JOB# [id number] SBLinda/JAYNE
[2019-04-22] MEDS: amLODIPine 10 MG TAB PO SCH (09:59)
[2019-04-22] MEDS: hydroCHLOROthiazide 25 MG TAB PO SCH (09:59)
[2019-04-22] MEDS: PANTOPRAZOLE 40 MG TAB PO SCH (09:59)
[2019-04-22] MEDS ORDERED: LISINOPRIL 40 MG TAB PO SCH (10:00)
--- NOTE | 2019-04-22 11:32 | Progress Note ---
Assessment and Plan Head CT with NAF. Chest CTA negative for PE. Echo reviewed - EF 45-50%, impaired relaxation, RV mildly dilated, RV systolic function mildly reduced, RA mildly dilated. S/p lexiscan MPI stress test yesterday which was negative. Tele reviewed - in SR HR 70s with 1 bout of transient Wenckebach noted overnight while pt was sleeping. TSH WNL. Cont to avoid AV pennie blocking agents. Can consider OP event monitor. Currently stable cardiac status. Pt may discharge from cardiology standpoint. Recommend follow up in our office with Dr. Kristine Mahajan within 1-2 weeks ([phone]). The patient has been seen in conjunction with Dr. Kristine Mahajan who agrees with the assessment and plan of care. - Patient Problems (1) Chest pain Current Visit: Yes Status: Resolved Qualifiers: Chest pain type: unspecified Qualified Code(s): R07.9 - Chest pain, unspecified (2) Syncope Current Visit: Yes Status: Acute Qualifiers: Syncope type: unspecified Qualified Code(s): R55 - Syncope and collapse (3) Uncontrolled hypertension Current Visit: Yes Status: Chronic (4) Nonobstructive atherosclerosis of coronary artery Current Visit: Yes Status: Chronic (5) History of ETOH abuse Current Visit: Yes Status: Chronic (6) Tobacco use Current Visit: Yes Status: Chronic Subjective Date of service: 04/22/19 Principal diagnosis: cp; syncope Interval history: pt resting in bed, no current complaints. tele reviewed - in SR HR 70s with 1 bout of transient Wenckebach noted overnight while pt was sleeping. Objective Last Vital Signs Temp 98.8 F 04/22/19 03:25 Pulse 73 04/22/19 03:25 Resp 16 04/22/19 03:25 BP 153/110 04/22/19 03:25 Pulse Ox 97 04/22/19 03:25 - Physical Examination General: No Apparent Distress HEENT: Positive: PERRL, Normocephaly, Mucus Membranes Moist Neck: Positive: neck supple, trachea midline Cardiac: Positive: Reg Rate and Rhythm, S1/S2 Lungs: Positive: Decreased Breath Sounds Neuro: Positive: Grossly Intact Abdomen: Negative: Tender Skin: Negative: Rash Musculoskeletal: No Pain Extremities: Absent: edema - Imaging and Cardiology EKG: report reviewed, image reviewed Echo: report reviewed ( 07/2017 showed EF 50-55%, impaired relaxation. ) Cardiac cath: report reviewed ( 10/2017 showed RCA mid 20% lesion, otherwise normal coronaries. ) - Telemetry EKG Rhythm: Sinus Rhythm - EKG Sinus rhythms and dysrhythmias: sinus rhythm Repolarization changes or abnormalities: nonspecific abnormality, ST segment, and/or T wave
[2019-04-22 13:29] VITALS: BP 125/74
--- NOTE | 2019-04-22 15:23 | Discharge Summary ---
Providers - Providers Date of Admission: 04/20/19 15:11 Date of discharge: 04/22/19 Attending physician: ZACH PYLE 04/20/19 15:11 Consult to Physician [CONS] Routine Comment: Consulting Provider: HERI MAHAJAN Physician Instructions: Reason For Exam: cp 04/21/19 17:21 Physical Therapy Evaluation and Treat [CONS] Routine Comment: Reason For Exam: balance issues with gait [facility] Condition: Stable Disposition: - TO HOME OR SELFCARE Exam - Constitutional Vitals: Temp Pulse Resp BP Pulse Ox 98.1 F 80 18 125/74 95 04/22/19 11:44 04/22/19 11:44 04/22/19 11:44 04/22/19 11:44 04/22/19 11:44 Plan Activity: advance as tolerated Diet: low fat, low cholesterol, low salt Plan of Treatment: 1.Follow up with PCP in 1 week. 2.Follow up with Dr. Heri Mahajan in 1-2 weeks [facility] Days Prescriptions: lisinopriL [Zestril TAB] 40 mg PO QDAY #30 tablet
== END 2019-04-22 16:49 | disposition home or self-care (01) | DRG 312 ==
LOC: ED 11:47 → 3A 15:11
PROVIDERS: ADMIT Hospitalist; ATTEND Internal Medicine
DX: R55 Syncope and collapse (principal); E78.5 Hyperlipidemia, unspecified; R07.9 Chest pain, unspecified; F17.210 Nicotine dependence, cigarettes, uncomplicated; F10.10 Alcohol abuse, uncomplicated; Y90.9 Presence of alcohol in blood, level not specified; M47.816 Spondylosis without myelopathy or radiculopathy, lumbar region; I25.10 Atherosclerotic heart disease of native coronary artery without angina pectoris; W08.XXXA Fall from other furniture, initial encounter; Y93.89 Activity, other specified; Y92.89 Other specified places as the place of occurrence of the external cause; Y99.8 Other external cause status; Z79.899 Other long term (current) drug therapy; Z91.19 Patient's noncompliance with other medical treatment and regimen
CPT/HCPCS: 36415; 70450; 71045; 71275; 74174; 78452; 80048; 80053; 80307; 80320; 81001; 82550; 82553; 83735; 83880; 84100; 84443; 84484; 85007; 85025; 85379; 85610; 85730; 87116; 93005; 93010; 93017; 93306; 99406; G0378; A9502; G0480; J2785; Q9967

== ENCOUNTER 2019-06-15 10:13 | Emergency (ER) | payer SELFPAY ==
--- NOTE | 2019-06-15 11:09 | XRay Report ---
CHEST 1 VIEW 10:54 AM INDICATION / CLINICAL INFORMATION: Chest pain starting today. COMPARISON: 04/20/19. FINDINGS: SUPPORT DEVICES: None. HEART / MEDIASTINUM: The heart size and pulmonary vasculature are normal. The aorta is normal in artemio jayson. LUNGS / PLEURA: No significant pulmonary or pleural abnormality. No pneumothorax. ADDITIONAL FINDINGS: No significant additional findings. IMPRESSION: No acute abnormality or significant change. Signer Name: Sarabjit Cardenas MD Signed: 06/15/2019 11:05 AM Workstation Name: [id number]
[2019-06-15 12:53] LABS: Hematocrit 42.4 % (35.5-45.6); Hemoglobin 13.8 gm/dl (11.8-15.2); Mean Corpuscular HGB Conc 33 % (32-34); Mean Corpuscular Volume 76 fl (84-94); Platelet Count 311 K/mm3 (140-440); Red Blood Count 5.55 M/mm3 (3.65-5.03)
[2019-06-15 12:54] LABS: Red Cell Distribution Width 21.6 % (13.2-15.2)
[2019-06-15 12:55] LABS: BUN/Creatinine Ratio 9; Blood Urea Nitrogen 7 mg/dL (9-20); Calcium 9.4 mg/dL (8.4-10.2); Hemolysis Index 19
[2019-06-15 13:27] LABS: Basophils % (Manual) 0 % (0.0-1.8); Eosinophils % (Manual) 0 % (0.0-4.3); Total Cells Counted 100
[2019-06-15 13:28] LABS: Hypochromasia Few; Target Cells Few
[2019-06-15 13:29] LABS: Platelet Estimate Consistent w Auto
[2019-06-15] MEDS ORDERED: IBUPROFEN 600 MG TAB PO ONE ×2 (13:43→13:44)
[2019-06-15] MEDS ORDERED: fentaNYL 100 MCG/2 ML INJ IV ONE (15:13)
[2019-06-15] MEDS ORDERED: ONDANSETRON 4 MG/2 ML INJ IV ONE (15:13)
[2019-06-15] MEDS ORDERED: NITROGLYCERIN 2% OINT 1 GM TP ONE (15:13)
[2019-06-15] MEDS ORDERED: ASPIRIN 325 MG TAB PO ONE (15:14)
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
[2019-06-15] MEDS ORDERED: cloNIDine 0.2 MG TAB PO ONE (15:21)
[2019-06-15] MEDS ORDERED: hydrALAZINE 20 MG/1 ML INJ IV ONE (17:00)
[2019-06-15] MEDS ORDERED: cloNIDine 0.2 MG TAB ONE (18:10)
[2019-06-15 18:32] VITALS: BP 153/125
--- NOTE | 2019-06-15 18:32 | Event Note ---
Date: 06/15/19 54-year-old male with hypertension and medication noncompliance presents to ED for evaluation of atypical chest pain. Patient seen and evaluated in the emergency department. Patient cardiac work-up negative. Upon further questioning patient states that he ran out of his antihypertensive medication over a month ago due to inability to afford medication. Patient found to have uncontrolled hypertension secondary to medication noncompliance. Upon further interview, the patient denies fever, chills, chest pain, syncope, shortness of breath, palpitations, prolonged travel/immobility, unilateral leg swelling, calf pain, individualfamily history of DVT/PE/bleeding/blood clotting disorders. Patient is low risk by Wells criteria. Patient states that he presented to ED for evaluation because he needed his medication. Patient counseled regarding medication noncompliance. Patient counseled regarding the risk of worsening symptoms, and/or organ damage, and resultant . Patient knowledges understanding instructions and will attempt to be more compliant with his medication in the future. No significant abnormal physical exam findings. Patient instructed to follow-up with primary care physician within 3 to 5 days with blood pressure log. Physical Exam: GENERAL: The patient is well-developed well-nourished male lying on stretcher not appearing to be in acute distress. [] HEENT: Normocephalic. Atraumatic. Extraocular motions are intact. Patient has moist mucous membranes. NECK: Supple. Trachea midline CHEST/LUNGS: Clear to auscultation. There is no respiratory distress noted. HEART/CARDIOVASCULAR: Regular. There is no tachycardia. There is no gallop rub or murmur. ABDOMEN: Abdomen is soft, nontender. Patient has normal bowel sounds. There is no abdominal distention. SKIN: There is no rash. There is no edema. There is no diaphoresis. NEURO: The patient is awake, alert, and oriented. The patient is cooperative. The patient has no focal neurologic deficits. The patient has normal speech MUSCULOSKELETAL: There is no evidence of acute injury.
== END 2019-06-15 18:48 | disposition admitted as inpatient to this hospital (09) ==
LOC: ED 10:13
DX: R07.89 Other chest pain (principal); R55 Syncope and collapse; I10 Essential (primary) hypertension; F17.200 Nicotine dependence, unspecified, uncomplicated; Z79.899 Other long term (current) drug therapy
CPT/HCPCS: 36415; 71045; 80048; 84484; 85007; 85025; 85379; 93005; 93010